=== PATIENT | male | born 1955 | race African-American/Black ===

== ENCOUNTER 2019-01-24 17:38 | Inpatient (IN) | payer MEDICAID ==
[~2019-01-24] VITALS: Ht 175.3 cm; Wt 90.0 kg
[2019-01-24 17:45] VITALS: BP 155/99
[2019-01-24] MEDS ORDERED: Nitroglycerin 2% oint pkt TOPIC ONE (17:45)
[2019-01-24] MEDS ORDERED: Nitroglycerin 50mg/250ml btl 250 ML IV ONE (17:45)
--- NOTE | 2019-01-24 17:45 | NUR ---
ED Nurse Note: Pt brought in by [facility] for c/o increasing sob and biltat LE swelling for the past two weeks. [facility] applied CPAP on scene, initial oxygen sat was 70% per fire. Pt was also given 4 sprays of nitro en route to the ED. Pt is aaox4, breathing is labored, pt is still able to speak in full sentences. ERMD at bedside, pt placed on court monitor and in hospital gown. RT at bedside.
[2019-01-24] MEDS: Nitroglycerin Subl 0.4mg tab SL PRN ×3 (17:47→18:37)
--- NOTE | 2019-01-24 17:56 | Emergency Room Report ---
History of Present Illness General Chief Complaint: Dyspnea/Respdistress Source: Patient, EMS Present Illness HPI Patient presents with dyspnea by EMS. He has a history of congestive heart failure. EMS found him with an oxygen saturation of 70%. CPAP was begun in the field. In addition he received 2 sprays of nitroglycerin. He was hypertensive with a systolic pressure 170 in the field. His O2 saturation improved to 98% and his breathing was improved although he was still tachypneic. The patient denies any fevers or productive cough. He complains about pedal edema bilaterally. He denies calf pain. The patient reports that this problem is developed over the last 8 months. He has been evaluated the [facility]. He was told he has a blockage in his heart. He is taking Lasix and 2 days ago was increased from 20 to 40 mg. He feels is not working very well. He is not told the etiology of the heart failure. He says that the echocardiogram done before revealed an ejection fraction of about 30%. He has had an implanted defibrillator placed. He has been hospitalized at [facility] in addition to the [facility]. He is depressed about his condition. He denies suicidal ideation. The patient has a distant history of cocaine abuse. He stopped all drugs and alcohol 20 years ago. He claims he does not smoke. No chills, sore throat, palpitations, nausea, vomiting, diarrhea, dysuria, abdominal pain, joint pain, rashes, visual changes, dizziness, headache. Allergies: Coded Allergies: IODINE (Verified Allergy, Unknown, 01/24/19) Patient History Past Medical History: see triage record Social History: Reports: drug use - Distant cocaine (see tox); Denies: smoking , alcohol use Social History Narrative From home Reviewed Nursing Documentation: PMH: Agreed; PSxH: Agreed Nursing Documentation-PM Past Medical History: No History, Except For Hx Cardiac Problems: Yes - CHF Hx Hypertension: Yes Review of Systems All Other Systems: negative except mentioned in HPI Physical Exam Vital Signs Date Time Temp Pulse Resp B/P (MAP) Pulse Ox O2 Delivery O2 Flow Rate FiO2 01/24/19 17:44 97.5 110 28 155/99 (117) 99 Bi-pap Sp02 EP Interpretation: reviewed, abnormal - Interpreted as low by me based on FiO2 and second rigger history. General Appearance: alert, GCS 15, non-toxic, moderate distress Head: normocephalic, atraumatic Eyes: bilateral eye normal inspection, bilateral eye PERRL, bilateral eye EOMI ENT: moist mucus membranes Neck: full range of motion, supple, no meningismus Respiratory: respiratory distress, rales Cardiovascular #1: JVD - Above angle of the jaw sitting upright, tachycardia, edema - 3+ pedal edema Cardiovascular #2: 2+ radial (R) Gastrointestinal: non tender, soft, distended - Minimally, decreased bowel sounds Genitourinary: no CVA tenderness Musculoskeletal: no calf tenderness, pelvis stable Neurologic: alert, oriented x3, grossly normal Psychiatric: anxious Skin: no rash, warm/dry Procedures Critical Care Time Critical Care Time Total Critical Care Time: 90 min bedside evaluation and treatment excludes procedures (EKG). Reason for critical care: respiratory distress, BiPAP, re-evaluations, hypertensive urgency Possible complications: hypotension, hypertension, TN, shock, arrhythmias, metabolic acidosis, end organ damage, respiratory failure. Interventions: BiPAP, repeat evaluations, nitrates, Lasix Course: Patient presents with respiratory distress on CPAP from the field. Hypertension and nitrates given in the field. BiPAP initiated and aggressive treatment with nitrates and Lasix. Patient not tolerating BiPAP well. Repeat evaluation and able to oxygenate on nasal cannula. Discussion with respiratory therapy. Patient diuresing. Blood pressure improved. Discussion with patient positive toxicology screen. Discussion with admitting physician. Consultations: nursing staff, EMS, RT, admitting physician Performed by: Dr. Krueger Tolerated well condition = critical Medical Decision Making Diagnostic Impression: Primary Impression: Pulmonary edema Qualified Codes: J81.0 - Acute pulmonary edema Additional Impressions: Hypertensive urgency Amphetamine abuse ER Course Patient presents with hypoxia, dyspnea with history of heart failure. Differential includes acute myocardial infarction, pulmonary embolism, flash pulmonary edema, hypertensive urgency amongst others. Patient has improved with CPAP in the field and nitroglycerin. BiPAP is ordered here along with nitrates and Lasix. Flash pulmonary edema and pulmonary embolus. Evaluation with EKG, chest x-ray and labs. Patient is placed on a cardiac monitor technician. At this time he is satting at 100% on BiPAP and fully awake. No blood gases indicated at this time. He does not need CO2 monitoring unless he becomes sleepy. EKG sinus tachycardia with nonspecific ST-T wave changes. Chest x-ray with pulmonary edema. Normal white count. Patient improved after sublingual nitroglycerin, Nitropaste and Lasix. Beginning to diurese. Not tolerating BiPAP and switched over to nasal cannula oxygenating at the 100%. Nitroglycerin drip has not been started yet. Re- evaluation at 18:31. Patient tolerating nasal cannula with adequate oxygenation. No respiratory distress at this time. Downgraded from ICU. Discussed + tox with patient. States had a sponsor in past but not recently. Did meth (ingest) Saturday. Admit SDU Dr. Olmedo. Echocardiogram indicated. Laboratory Tests Test 01/24/19 17:45 01/24/19 18:16 01/24/19 21:20 White Blood Count 6.9 K/UL (4.8-10.8) Red Blood Count 4.33 M/UL (4.70-6.10) L Hemoglobin 13.2 G/DL (14.2-18.0) L Hematocrit 38.6 % (42.0-52.0) L Mean Corpuscular Volume 89 FL (80-99) Mean Corpuscular Hemoglobin 30.4 PG (27.0-31.0) Mean Corpuscular Hemoglobin Concent 34.1 G/DL (32.0-36.0) Red Cell Distribution Width 12.7 % (11.6-14.8) Platelet Count 313 K/UL (150-450) Mean Platelet Volume 5.1 FL (6.5-10.1) L Neutrophils (%) (Auto) 55.5 % (45.0-75.0) Lymphocytes (%) (Auto) 30.2 % (20.0-45.0) Monocytes (%) (Auto) 10.0 % (1.0-10.0) Eosinophils (%) (Auto) 1.8 % (0.0-3.0) Basophils (%) (Auto) 2.4 % (0.0-2.0) H Prothrombin Time 11.4 SEC (9.30-11.50) Prothrombin Time INR 1.1 (0.9-1.1) PTT 24 SEC (23-33) Sodium Level 144 MMOL/L (136-145) Potassium Level 4.1 MMOL/L (3.5-5.1) Chloride Level 106 MMOL/L (98-107) Carbon Dioxide Level 31 MMOL/L (21-32) Anion Gap 7 mmol/L (5-15) Blood Urea Nitrogen 25 mg/dL (7-18) H Creatinine 1.2 MG/DL (0.55-1.30) Estimate Glomerular Filtration Rate > 60 mL/min (>60) Glucose Level 87 MG/DL (74-106) Calcium Level 9.1 MG/DL (8.5-10.1) Total Bilirubin 0.6 MG/DL (0.2-1.0) Aspartate Amino Transferase (AST) 32 U/L (15-37) Alanine Aminotransferase (ALT) 69 U/L (12-78) Alkaline Phosphatase 161 U/L (46-116) H Total Creatine Kinase 65 U/L (26-308) Troponin I 0.031 ng/mL (0.000-0.056) 0.038 ng/mL (0.000-0.056) Pro-B-Type Natriuretic Peptide 9362 pg/mL (0-125) H Total Protein 7.5 G/DL (6.4-8.2) Albumin 3.4 G/DL (3.4-5.0) Globulin 4.1 g/dL Albumin/Globulin Ratio 0.8 (1.0-2.7) L Urine Color Pale yellow Urine Appearance Clear Urine pH 6 (4.5-8.0) Urine Specific [place] 1.010 (1.005-1.035) Urine Protein 2+ (NEGATIVE) H Urine Glucose (UA) Negative (NEGATIVE) Urine Ketones Negative (NEGATIVE) Urine Blood 1+ (NEGATIVE) H Urine Nitrite Negative (NEGATIVE) Urine Bilirubin Negative (NEGATIVE) Urine Urobilinogen Normal MG/DL (0.0-1.0) Urine Leukocyte Esterase Negative (NEGATIVE) Urine RBC 0-2 /HPF (0 - 0) H Urine WBC 0 /HPF (0 - 0) Urine Squamous Epithelial Cells None /LPF (NONE/OCC) Urine Bacteria None /HPF (NONE) Urine Opiates Screen Negative (NEGATIVE) Urine Barbiturates Screen Negative (NEGATIVE) Phencyclidine (PCP) Screen Negative (NEGATIVE) Urine Amphetamines Screen Positive (NEGATIVE) H Urine Benzodiazepines Screen Negative (NEGATIVE) Urine Cocaine Screen Negative (NEGATIVE) Urine Marijuana (THC) Screen Positive (NEGATIVE) H EKG Diagnostic Results Rate: tachycardiac Rhythm: NSR ST Segments: no acute changes - Left atrial enlargement nonspecific ST-T wave changes with T wave inversions V5 V6 and also some 2 3 and aVF Rhythm Strip Diag. Results EP Interpretation: yes Rhythm: no PVC's, no ectopy, other Chest X-Ray Diagnostic Results Chest X-Ray Diagnostic Results : Chest X-Ray Ordered: Yes # of Views/Limited/Complete: 1 View Indication: Shortness of Breath EP Interpretation: Yes Interpretation: no effusion, no pneumothorax, other - pulm edema Impression: Other Electronically Signed by: Electronically signed by Dutch Krueger MD Last Vital Signs Date Time Temp Pulse Resp B/P (MAP) Pulse Ox O2 Delivery O2 Flow Rate FiO2 01/25/19 00:00 92 01/25/19 00:00 3.0 01/25/19 00:00 Nasal Cannula 01/25/19 00:00 97.7 18 126/84 (98) 95 01/24/19 20:10 50 Status: improved Disposition: ADMITTED INPATIENT Condition: Critical Dutch Krueger MD Jan 24, 2019 17:56
--- NOTE | 2019-01-24 18:05 | NUR ---
ED Nurse Note: Per BRAEDEN Krueger, hold nitro drip and Monitor pt blood pressure.
[2019-01-24 18:11] LABS: BASOPHILS % (AUTO) 2.4 % (0.0-2.0); EOSINOPHILS % (AUTO) 1.8 % (0.0-3.0); HEMATOCRIT 38.6 % (42.0-52.0); HEMOGLOBIN 13.2 G/DL (14.2-18.0); LYMPHOCYTES % (AUTO) 30.2 % (20.0-45.0); MEAN CORPUSCULAR VOLUME 89 FL (80-99); NEUTROPHILS % (AUTO) 55.5 % (45.0-75.0); PLATELET COUNT 313 K/UL (150-450); RED BLOOD COUNT 4.33 M/UL (4.70-6.10); RED CELL DISTRIBUTION WIDTH 12.7 % (11.6-14.8); WHITE BLOOD COUNT 6.9 K/UL (4.8-10.8)
--- NOTE | 2019-01-24 18:15 | NUR ---
ED Nurse Note: Pt stated he did not want to be on bipap at this time and requested nasal cannula. Per BRAEDEN Krueger, pt okay to start on 2L oxygen via nasal cannula and monitor. Pt placed on 2L oxygen via nc, oxygen sat is currently 100% and 25 respirations.
[2019-01-24 18:24] LABS: ANION GAP 7 mmol/L (5-15); BLOOD UREA NITROGEN 25 mg/dL (7-18); CALCIUM 9.1 MG/DL (8.5-10.1); CARBON DIOXIDE 31 MMOL/L (21-32); CHLORIDE 106 MMOL/L (98-107); CREATININE 1.2 MG/DL (0.55-1.30); POTASSIUM 4.1 MMOL/L (3.5-5.1); SODIUM 144 MMOL/L (136-145)
[2019-01-24 18:30] LABS: APPEARANCE,URINE CLEAR; BILIRUBIN, URINE NEGATIVE (NEGATIVE); COLOR,URINE PALE YELLOW; GLUCOSE, URINE (UA) NEGATIVE (NEGATIVE); KETONES,URINE NEGATIVE (NEGATIVE); LEUKOCYTE ESTERASE ,URINE NEGATIVE (NEGATIVE); NITRITE,URINE NEGATIVE (NEGATIVE); PH,URINE 6 (4.5-8.0); PROTEIN,URINE 2+ (NEGATIVE); UROBILINOGEN,URINE NORMAL MG/DL (0.0-1.0)
[2019-01-24 18:30] LABS: INR 1.1 (0.9-1.1)
[2019-01-24] MEDS ORDERED: FUROSEMIDE40 MG ORAL (18:35)
[2019-01-24] MEDS ORDERED: CARVEDILOL12.5 MG ORAL (18:35)
[2019-01-24] MEDS ORDERED: LISINOPRIL20 MG ORAL (18:35)
[2019-01-24 18:37] LABS: ALANINE AMINOTRANSFERASE 69 U/L (12-78); ALBUMIN 3.4 G/DL (3.4-5.0); ALBUMIN/GLOBULIN RATIO 0.8 (1.0-2.7); ALKALINE PHOSPHATASE 161 U/L (46-116); ASPARTATE AMINO TRANSFERASE 32 U/L (15-37); BILIRUBIN,TOTAL 0.6 MG/DL (0.2-1.0); CREATINE KINASE 65 U/L (26-308)
[2019-01-24 18:45] VITALS: BP 118/98
--- NOTE | 2019-01-24 19:05 | NUR ---
HAND-OFF: Report given to justen Russell and endorsed care.
--- NOTE | 2019-01-24 19:06 | NUR ---
ED Nurse Note: Received report from Chiqui HERNANDEZ.
[2019-01-24 19:30] VITALS: BP 105/91
--- NOTE | 2019-01-24 20:02 | NUR ---
ED Nurse Note: Report given to Samira Huddleston from SDU.
--- NOTE | 2019-01-24 20:03 | Diagnostic Imaging Report ---
EXAM: XR Chest, 1 View CLINICAL HISTORY: DYSPNEA TECHNIQUE: Frontal view of the chest. COMPARISON: No relevant prior studies available. FINDINGS: Lungs: Some increased hazy opacities are suspected at the lung bases suggestive of atelectasis versus infiltrate, right greater than left. Pleural space: No definite plain film evidence for pneumothorax. Heart: Prominence of the cardiac silhouette. Mediastinum: Unremarkable. Bones/joints: Probable old fracture deformity of the right clavicle. Lymph nodes: Calcified mediastinal nodes are suspected. IMPRESSION: 1. Some increased hazy opacities are suspected at the lung bases suggestive of atelectasis versus infiltrate, right greater than left. 2. Prominence of the cardiac silhouette.
[2019-01-24 20:10] VITALS: BP 111/89
--- NOTE | 2019-01-24 20:10 | NUR ---
TRANSFER TO FLOOR: Patient transferred to SDU unit. Report given to Samira HERNANDEZ. Pt alert and oriented, verbally responsive. No SOB. On O2 tx @2L/ min via nc, saturating 100%. Breathing even and unlabore. Afebrile. No skin issues. Med recon done. Belongings list done. VSS. All belongings given to the patient. Family member aware of transfer.
[2019-01-24 20:18] VITALS: BP 156/109
[2019-01-24] MEDS: Lisinopril 10mg tab ORAL SCH (21:35)
[2019-01-24] MEDS: Carvedilol 12.5mg tab ORAL SCH (21:35)
--- NOTE | 2019-01-24 22:00 | NUR ---
NURSE NOTES: Report received from DAVID Hu Per report patient is alert and oriented x4, ST on tele and 12 lead EKG. Pt currently has an O2 saturation of 100% on 3L NC and declining BiPap. Pt was presented to ED for treatment via ambulance after being found at home with an O2 sat of 70%. Pt received CPap and Nitro x4 en route. Pt continent and skin is intact per report. R AC 20g IV catheter reported to be asymptomatic, patent and intact. Drug screen revealed pt is positive for amphetamines and thc, reported allergies to iodine and pt given 40mg of Lasix IVP prior to transfer. Belongings list done and med recon done in ED per report. Will await patient.
--- NOTE | 2019-01-24 22:18 | NUR ---
NURSE NOTES: Patient received from DAVID Valdez Patient is alert and oriented x4, ST on tele (115). Pt currently has an O2 saturation of 94% on 3L NC and is SOB at rest and with exertion. Pt is ambulatory with a steady gait but encouraged to use call light for needs. Pt uses urinal and skin is intact. R AC 20g IV catheter is asymptomatic, patent and intact. Drug screen revealed pt is positive for amphetamines and THC, pt denies alcohol consumption. Pt has allergies to iodine and denies pain at this time. Belongings list updated to reflect upper and lower dentures. Will call for orders. Will continue to monitor.
--- NOTE | 2019-01-24 22:40 | NUR ---
NURSE NOTES: Patient provided with a bed bath and oral care and performed ADLs with minimal assistance. Patient requested meal, meal provided congruent with cardiac diet order.
--- NOTE | 2019-01-24 23:04 | NUR ---
NURSE NOTES: Pt provided with oral care, partial bed bath per patient request and linen change. Pt tolerated care well. Pt continues to rest in bed; bed is in the lowest position, safety wheels engaged, call light within reach, side rails up x3, and bed alarm activated. Will continue to monitor.
[2019-01-25] VITALS: BP 126/84
--- NOTE | 2019-01-25 03:29 | NUR ---
NURSE NOTES: Patient c/o nausea but denies chest pain at this time. Order obtained for Zofran, Zofran given. Will continue to monitor.
[2019-01-25 04:00] VITALS: BP 145/94
--- NOTE | 2019-01-25 05:33 | NUR ---
NURSE NOTES: Patient complains of abdominal pain 3/10, cramping in nature. Tylenol administered per order as requested by patient. Will continue to monitor. Will reassess.
--- NOTE | 2019-01-25 06:20 | NUR ---
NURSE NOTES: Left message for Dr Olmedo regarding nausea despite Zofran administration and pain has escalated to a 9/10 despite Tylenol administration when patient complained of mild pain. Will await call back. Will continue to monitor.
--- NOTE | 2019-01-25 07:08 | NUR ---
HAND-OFF: Report given to DAVID Rojo. Pt remains stable at this time. Endorsed return phone call from Dr Olmedo.
[2019-01-25 07:29] LABS: CHOLESTEROL 111 MG/DL (< 200); HDL CHOLESTEROL 28 MG/DL (40-60); TRIGLYCERIDES 134 MG/DL (30-150)
--- NOTE | 2019-01-25 07:30 | NUR ---
NURSE NOTES: Received report from DAVID Hogan. Patient is resting in bed, in stable condition. No s/sx SOB, breathing is even and unlabored, pt on 2LNC. Bed is in lowest position, brake engaged. Rodger light is kept within easy reach. Will continue to monitor patient.
[2019-01-25 08:00] VITALS: BP 131/101
[2019-01-25] MEDS: Carvedilol 12.5mg tab ORAL SCH ×2 (09:41→20:53)
[2019-01-25] MEDS: Lisinopril 10mg tab ORAL SCH ×2 (09:41→17:40)
[2019-01-25] MEDS: Aspirin Baby 81mg ORAL SCH (09:42)
[2019-01-25 12:00] VITALS: BP 129/93
--- NOTE | 2019-01-25 12:05 | History & Physical ---
History and Physical History & Physicial HP dictated # [id number] Quinten Olmedo MD Jan 25, 2019 12:05
[2019-01-25] MEDS ORDERED: traMADol 50mg tab ORAL PRN (13:00)
--- NOTE | 2019-01-25 13:10 | NUR ---
NURSE NOTES: Dr. Marcela Olmedo seen and examined patient at bedside. At nurse station informed MD of 2D Echocardiogram result of "Echogenic material noted in left ventricular apex. Possible thrombus," and ejection fraction of 10-15%. Dr. Marcela Olmedo acknowledged and ordered to begin heparin drip per pharmacy for thrombus, heparin IV bolus per pharmacy. Dr. Marcela Olmedo at bedside, explained to patient of 2D Echocardiogram findings and need for anticoagulation therapy. Patient verbalized understanding. Order entered, noted, and carried out. Also informed Dr. Marcela Olmedo, pt is c/o severe abdominal pain non-radiating. Dr. Marcela Olmedo acknowledged and ordered Tramadol 50 mg PO Q8HR PRN for severe pain 7-10 scale. Order entered, noted, and carried out. Will continue to monitor patient.
[2019-01-25] MEDS ORDERED: Heparin 5000 units/ml inj IV SCH ×3 (13:15→22:30)
[2019-01-25] MEDS ORDERED: Heparin 25,000u/D5W 500ml 500 ML IV SCH ×3 (14:00→15:40)
--- NOTE | 2019-01-25 14:32 | Cardiology Progress Note ---
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 cad as a cause needs to be evlauted for tx candidacy in future if corrective cause , however substance abuse hs may be a prohibitive issue Objective Last 24 Hour Vital Signs Date Time Temp Pulse Resp B/P (MAP) Pulse Ox O2 Delivery O2 Flow Rate FiO2 01/25/19 12:00 97.0 102 18 129/93 (105) 100 01/25/19 12:00 2.0 01/25/19 12:00 Nasal Cannula 3.0 01/25/19 09:41 131/101 01/25/19 09:41 106 131/101 01/25/19 08:00 91 01/25/19 08:00 Nasal Cannula 3.0 01/25/19 08:00 2.0 01/25/19 08:00 97.6 106 18 131/101 (111) 100 01/25/19 04:00 3.0 01/25/19 04:00 Nasal Cannula 3.0 01/25/19 04:00 98.0 103 22 145/94 (111) 98 01/25/19 03:42 97 01/25/19 00:00 92 01/25/19 00:00 3.0 01/25/19 00:00 Nasal Cannula 3.0 01/25/19 00:00 97.7 86 18 126/84 (98) 95 01/24/19 22:59 Nasal Cannula 4.0 01/24/19 21:35 157/109 01/24/19 21:35 112 157/109 01/24/19 20:18 98.4 115 26 156/109 (125) 89 01/24/19 20:10 97.8 95 23 111/89 100 Nasal Cannula 2.0 50 01/24/19 20:10 97.8 95 23 111/89 100 Nasal Cannula 2.0 50 01/24/19 19:30 98.2 99 22 105/91 100 Nasal Cannula 2.0 50 01/24/19 18:45 97.5 105 29 118/98 100 Nasal Cannula 2.0 01/24/19 18:37 118/98 01/24/19 18:32 143/111 01/24/19 18:00 114 32 100 Bi-Pap 50 01/24/19 17:54 114 32 100 Facial 50 01/24/19 17:47 155/55 01/24/19 17:46 155/59 01/24/19 17:45 110 28 Bi-pap 01/24/19 17:45 97.5 110 28 155/99 99 Bi-pap 01/24/19 17:44 97.5 110 28 155/99 (117) 99 Bi-pap Intake and Output 01/24/19 01/25/19 19:00 07:00 Intake Total 600 ml Output Total 800 ml Balance -200 ml Intake Oral 600 ml Output Urine Total 800 ml # Voids 1 3 Laboratory Tests Test 01/24/19 17:45 01/24/19 18:16 01/24/19 21:20 01/25/19 04:02 White Blood Count 6.9 K/UL (4.8-10.8) Red Blood Count 4.33 M/UL (4.70-6.10) L Hemoglobin 13.2 G/DL (14.2-18.0) L Hematocrit 38.6 % (42.0-52.0) L Mean Corpuscular Volume 89 FL (80-99) Mean Corpuscular Hemoglobin 30.4 PG (27.0-31.0) Mean Corpuscular Hemoglobin Concent 34.1 G/DL (32.0-36.0) Red Cell Distribution Width 12.7 % (11.6-14.8) Platelet Count 313 K/UL (150-450) Mean Platelet Volume 5.1 FL (6.5-10.1) L Neutrophils (%) (Auto) 55.5 % (45.0-75.0) Lymphocytes (%) (Auto) 30.2 % (20.0-45.0) Monocytes (%) (Auto) 10.0 % (1.0-10.0) Eosinophils (%) (Auto) 1.8 % (0.0-3.0) Basophils (%) (Auto) 2.4 % (0.0-2.0) H Prothrombin Time 11.4 SEC (9.30-11.50) Prothromb Time International Ratio 1.1 (0.9-1.1) Activated Partial Thromboplast Time 24 SEC (23-33) Sodium Level 144 MMOL/L (136-145) Potassium Level 4.1 MMOL/L (3.5-5.1) Chloride Level 106 MMOL/L (98-107) Carbon Dioxide Level 31 MMOL/L (21-32) Anion Gap 7 mmol/L (5-15) Blood Urea Nitrogen 25 mg/dL (7-18) H Creatinine 1.2 MG/DL (0.55-1.30) Estimat Glomerular Filtration Rate > 60 mL/min (>60) Glucose Level 87 MG/DL (74-106) Calcium Level 9.1 MG/DL (8.5-10.1) Total Bilirubin 0.6 MG/DL (0.2-1.0) Aspartate Amino Transf (AST/SGOT) 32 U/L (15-37) Alanine Aminotransferase (ALT/SGPT) 69 U/L (12-78) Alkaline Phosphatase 161 U/L (46-116) H Total Creatine Kinase 65 U/L (26-308) Troponin I 0.031 ng/mL (0.000-0.056) 0.038 ng/mL (0.000-0.056) 0.029 ng/mL (0.000-0.056) Pro-B-Type Natriuretic Peptide 9362 pg/mL (0-125) H Total Protein 7.5 G/DL (6.4-8.2) Albumin 3.4 G/DL (3.4-5.0) Globulin 4.1 g/dL Albumin/Globulin Ratio 0.8 (1.0-2.7) L Urine Color Pale yellow Urine Appearance Clear Urine pH 6 (4.5-8.0) Urine Specific [place] 1.010 (1.005-1.035) Urine Protein 2+ (NEGATIVE) H Urine Glucose (UA) Negative (NEGATIVE) Urine Ketones Negative (NEGATIVE) Urine Blood 1+ (NEGATIVE) H Urine Nitrite Negative (NEGATIVE) Urine Bilirubin Negative (NEGATIVE) Urine Urobilinogen Normal MG/DL (0.0-1.0) Urine Leukocyte Esterase Negative (NEGATIVE) Urine RBC 0-2 /HPF (0 - 0) H Urine WBC 0 /HPF (0 - 0) Urine Squamous Epithelial Cells None /LPF (NONE/OCC) Urine Bacteria None /HPF (NONE) Urine Opiates Screen Negative (NEGATIVE) Urine Barbiturates Screen Negative (NEGATIVE) Phencyclidine (PCP) Screen Negative (NEGATIVE) Urine Amphetamines Screen Positive (NEGATIVE) H Urine Benzodiazepines Screen Negative (NEGATIVE) Urine Cocaine Screen Negative (NEGATIVE) Urine Marijuana (THC) Screen Positive (NEGATIVE) H Hemoglobin A1c 5.1 % (4.3-6.0) Magnesium Level 1.8 MG/DL (1.8-2.4) Triglycerides Level 134 MG/DL (30-150) Cholesterol Level 111 MG/DL (< 200) LDL Cholesterol 66 mg/dL (<100) HDL Cholesterol 28 MG/DL (40-60) L Cholesterol/HDL Ratio 4.0 (3.3-4.4) Thyroid Stimulating Hormone (TSH) 2.184 uiU/mL (0.358-3.740) Test 01/25/19 13:30 Activated Partial Thromboplast Time Pending Cisco Yoder MD Jan 25, 2019 14:32
--- NOTE | 2019-01-25 15:45 | History and Physical Report ---
DATE OF ADMISSION: 01/24/2019 CHIEF COMPLAINT: Shortness of breath. HISTORY OF PRESENT ILLNESS: This is a 63-year-old male, who came to the emergency room with increasing shortness of breath. The patient was diagnosed with congestive heart failure in [place] about eight months ago. The patient was taking Lasix 20 mg daily. The patient was brought in by paramedics. Oxygen saturation wan 70%. The patient received CPAP on the field and also two sprays of nitroglycerin. He was hypertensive. The systolic blood pressure was 170s. He improved. His O2 saturation was 98% after treatment, but still tachypneic. The patient was brought into the emergency room. He was diagnosed with CHF exacerbation and was admitted. PAST MEDICAL HISTORY: The patient denies history of diabetes. He does have history of hypertension. MEDICATIONS: Reviewed in the EMR. SOCIAL HISTORY: The patient has history of drug use. Last drug use was six days ago. He takes methamphetamine by mouth. The patient has no history of smoking or alcohol abuse. ALLERGIES: No known drug allergies. REVIEW OF SYSTEMS: As above. PHYSICAL EXAMINATION: GENERAL: The patient is a 63-year-old male, in no acute distress. VITAL SIGNS: Blood pressure is 131/101, pulse 106, and temperature 97.6 degrees. HEENT: [place] conjunctivae. Anicteric sclerae. NECK: Supple. LUNGS: Bilateral rhonchi. HEART: S1 and S2 without murmurs or rubs. ABDOMEN: Soft and nontender. EXTREMITIES: Bilateral pedal edema. LABORATORY FINDINGS: The CBC shows WBC of 6,900, hematocrit is 38.6, hemoglobin is 13.2, and platelet is 313,000. The chemistry panel shows a sodium 144, potassium 4.1, chloride 106, BUN is 25, and creatinine 1.2. ProBNP is 9,362. Troponin was negative x3. Lipid panel shows LDL of 66, HDL of 28, triglycerides of 134, and TSH is 2.18. The UA shows 2+ protein. ASSESSMENT: This is a 63-year-old male, who was admitted with CHF exacerbation. He has significant peripheral edema. We just got his echo results back showing ejection fraction of only 10%. In addition, the patient has intracardiac thrombus. Apparently, he was on Coumadin before, but was for some reason stopped. PLAN: The patient will be diuresed with IV Lasix. Cardiology consultation will be obtained. The patient may need to be on inotropes. His blood pressure medication will be adjusted. We will maximize MEHRAN inhibitors as tolerated. The patient will be on anticoagulation. Laboratories will be followed and further recommendations will be given. Thank you very much. Quinten Olmedo M.D. DR: Hank JOB#: [id number] CC:
[2019-01-25 16:00] VITALS: BP 145/101
--- NOTE | 2019-01-25 16:38 | NUR ---
PT Note PT constanza completed, treatment initiated. Patient has SOB with minimal exertion. Patient needs PT to instruct on proper breathing techniques and energy conservation techniques to improve his functional mobility and gait with minimal SOB. Addendum: 01/25/19 at 1638 by LAURA ZAPATA PT Amended: Links added.
--- NOTE | 2019-01-25 19:30 | NUR ---
HAND-OFF: Report given to DAVID Low.
--- NOTE | 2019-01-25 19:35 | NUR ---
NURSE NOTES: Received report from Marcela Guo RN. Patient in bed AAO X4 with no complaints of acute pain or discomfort at this time. Kept clean, dry, and comfortable in bed. Patient on bedrest for possible PE. Placed on continuous cardiac monitoring per protocol. Safety precaution in place; siderails X2 up, call light within reach, bed in lowest position and free from clutter, brakes and alarm on at all times. Needs and wants anticipated and attended. Will continue plan of care. on Heparin drip per protocol
[2019-01-25 20:00] VITALS: BP 155/90
[2019-01-25] MEDS: Zolpidem 5mg tab ORAL PRN (20:53)
[2019-01-25] MEDS: Heparin 25,000u/D5W 500ml 500 ML IV SCH (22:45)
[2019-01-26] VITALS: BP 127/88
--- NOTE | 2019-01-26 00:30 | Consultation ---
DATE OF CONSULTATION: 01/25/2019 CARDIOLOGY CONSULTATION REFERRING PHYSICIAN: Quinten Olmedo M.D. REASON FOR REFERRAL: Shortness of breath. HISTORY OF PRESENT ILLNESS: This is a middle-aged gentleman who has a history of cardiomyopathy and congestive heart failure for at least approximately one year. He was previously hospitalized and cared for at the [place]. Medications ends up coming into different hospitals including [place] and [facility] a number of times according to himself because of recurrent shortness of breath. They discharged him and he goes back to the [place] and begins the same medication. He gets short of breath again, and he presented to the emergency room here. He states when he gets the intravenous dose of medication, his symptoms improved. He has dyspnea on exertion. He has not been able to for some time now. He has been sleeping in upright position because of shortness of breath. He does have palpitation. He has occasional dizziness. He has leg swelling. He does not have any chest pain. He does have a history of hypertension and he has a history of substance abusing including cocaine and most recently, crystal meth. The last time he used crystal meth was approximately two weeks ago. PAST MEDICAL HISTORY: Negative for diabetes. He is positive for high blood pressure. No history of high cholesterol. No heart attack, cancer, stroke, hepatitis, tuberculosis, asthma, emphysema, ulcers, kidney problems, liver problems, thyroid problems, anemia, HIV, AIDS, blood clots, or any other medical problems except for the congestive heart failure. He had been on anticoagulation with Coumadin for some time that was discontinued approximately two months ago, according to the patient. ALLERGIES: Allergic to iodine. SOCIAL HISTORY: He does not smoke, never did. He used to use alcohol and drugs as mentioned. Alcohol, he quit 15 years ago. Cocaine, he quit 15 years ago. Crystal meth, he has been using most recently about two months ago. REVIEW OF SYSTEMS: GASTROINTESTINAL: He has recurrent nausea and diarrhea, otherwise negative. GENITOURINARY: Negative. PULMONARY: Negative. CONSTITUTIONAL: Negative. NEUROLOGICAL: Negative. PHYSICAL EXAMINATION: GENERAL: Shows to be a tall gentleman, in no respiratory distress. NECK: Supple. No jugular venous distention. LUNGS: Few crackles noted at the bases. CARDIAC: Regular rate and rhythm. No heaves, thrills, gallops, or rubs are noted. ABDOMEN: Soft, nontender. Positive bowel sounds. EXTREMITIES: 1 to 2+ edema of the lower extremities. LABORATORY AND DIAGNOSTIC DATA: White count 6.9, hemoglobin 13.2, and platelet count 313,000. Chemistries, sodium 144, potassium 4.1, chloride 106, bicarb 31, BUN of 25, creatinine 1.2, and glucose of 87. Alkaline phosphatase 161. ProBNP of 9300. Albumin of 3.4. Total cholesterol 111, LDL of 66, and HDL of 28. TSH of 2.18. Three sets of cardiac enzymes are all negative. Magnesium 1.8. A1c of 5.7. His coags, INR 1.1 and PTT 22. Tox screen positive for amphetamines and positive for marijuana and his urinalysis is unremarkable. Chest x-ray was performed in the emergency room, which shows increased haziness or opacity suspected at the lung bases, suggestive of atelectasis versus infiltrate, right versus left. Prominence of the heart cardiac silhouette is noted. The patient's electrocardiogram shows sinus rhythm with some nonspecific T-waves, biphasic T-waves in V5 and T-wave inversions in the V6, lead I, and aVL. ASSESSMENT AND PLAN: 1. Congestive heart failure. 2. Substance abuse. 3. History of hypertension. Dr. Olmedo, this patient was seen in cardiac consultation. The patient probably needs more time and higher dose of diuretics he is getting at the [place]. He should have an echocardiogram done. Serial enzymes have been negative so far. EKG will be repeated. He has had congestive heart failure on the current basis on several occasions, he is just not getting adequate medications. His dose of MEHRAN inhibitor should be increased. His dose of his diuretic should be increased. Sodium fluid restriction was fully discussed with the patient. The patient requires followup through the [place] through his insurance company to see if he requires further therapy than what is available if no underlying coronary artery disease as a cause of cardiomyopathy. This was discussed with the patient. He will approach to [place] once he is treated here. Cisco Yoder M.D. DR: ALFA/reese JOB#: [id number] CC:
[2019-01-26 04:00] VITALS: BP 126/99
[2019-01-26 06:16] LABS: ANION GAP 9 mmol/L (5-15); BLOOD UREA NITROGEN 26 mg/dL (7-18); CALCIUM 8.7 MG/DL (8.5-10.1); CARBON DIOXIDE 27 MMOL/L (21-32); CHLORIDE 104 MMOL/L (98-107); CHOLESTEROL 109 MG/DL (< 200); CREATININE 1.2 MG/DL (0.55-1.30); HDL CHOLESTEROL 34 MG/DL (40-60); POTASSIUM 3.5 MMOL/L (3.5-5.1); SODIUM 140 MMOL/L (136-145); TRIGLYCERIDES 65 MG/DL (30-150)
--- NOTE | 2019-01-26 07:25 | NUR ---
NURSE NOTES: Received report from Cari Mclean RN. Patient sitting in chair, alert and oriented x 4, able to make needs known. Receiving O2 via nasal cannula @ 2L/min, respirations even and unlabored. Right AC 18g IV site infusing heparin at 18 units/kg/hr, asymptomatic. Bed locked in lowest position with side rails up x 3. All needs attended to. Call light within reach. Will continue to monitor. Addendum: 01/26/19 at 1056 by AGUSTIN MCCALL RN IV site is 20g
--- NOTE | 2019-01-26 07:37 | NUR ---
HAND-OFF: Report given to Michelle Mayo RN. Patient in stable condition, endorsed plan of care.
[2019-01-26 08:00] VITALS: BP 137/98
[2019-01-26] MEDS: Aspirin Baby 81mg ORAL SCH (09:01)
[2019-01-26] MEDS: Lisinopril 10mg tab ORAL SCH ×2 (09:01→18:15)
[2019-01-26] MEDS: Carvedilol 12.5mg tab ORAL SCH ×2 (09:01→20:25)
[2019-01-26 12:00] VITALS: BP 116/87
--- NOTE | 2019-01-26 13:34 | General Progress Note ---
Assessment/Plan Problem List: (1) Pulmonary edema ICD Codes: J81.1 - Chronic pulmonary edema SNOMED: 95105987 Qualifiers: Qualified Codes: J81.0 - Acute pulmonary edema (2) CHF (congestive heart failure) ICD Codes: I50.9 - Heart failure, unspecified SNOMED: 42420054 (3) Hypertensive urgency ICD Codes: I16.0 - Hypertensive urgency SNOMED: 241611344 (4) Amphetamine abuse ICD Codes: F15.10 - Other stimulant abuse, uncomplicated SNOMED: 93220593 (5) Hypomagnesemia ICD Codes: E83.42 - Hypomagnesemia SNOMED: 936995912 Assessment/Plan: cont with diuretics replete K and Mag follow labs PT Subjective Allergies: Coded Allergies: IODINE (Verified Allergy, Unknown, 01/24/19) Uncoded Allergies: Shell fish (Allergy, Severe, 01/25/19) Subjective In NAD Objective Last 24 Hour Vital Signs Date Time Temp Pulse Resp B/P (MAP) Pulse Ox O2 Delivery O2 Flow Rate FiO2 01/26/19 12:00 2.0 01/26/19 12:00 Nasal Cannula 2.0 01/26/19 09:01 137/98 01/26/19 09:01 97 137/98 01/26/19 08:00 99.0 97 20 137/98 (111) 97 01/26/19 08:00 Nasal Cannula 2.0 01/26/19 08:00 2.0 01/26/19 07:24 103 01/26/19 04:00 98.4 100 20 126/99 (108) 100 01/26/19 04:00 Nasal Cannula 3.0 01/26/19 04:00 2.0 01/26/19 04:00 97 01/26/19 00:00 96 01/26/19 00:00 98.4 96 21 127/88 (101) 99 01/26/19 00:00 Nasal Cannula 3.0 01/25/19 20:53 102 155/90 01/25/19 20:00 113 01/25/19 20:00 97.8 102 20 155/90 (111) 98 01/25/19 20:00 2.0 01/25/19 20:00 Nasal Cannula 3.0 01/25/19 17:40 145/101 01/25/19 16:00 97.8 97 18 145/101 (116) 100 01/25/19 16:00 98 01/25/19 16:00 2.0 01/25/19 16:00 Nasal Cannula 3.0 Intake and Output 01/25/19 01/26/19 19:00 07:00 Intake Total 788.872 ml 488.872 ml Output Total 1900 ml 800 ml Balance -1111.128 ml -311.128 ml Intake Oral 700 ml 400 ml IV Total 88.872 ml 88.872 ml Output Urine Total 1900 ml 800 ml # Voids 3 Laboratory Tests 01/25/19 21:15: Activated Partial Thromboplast Time 43H 01/26/19 04:50: Activated Partial Thromboplast Time 93H, Sodium Level 140, Potassium Level 3.5, Chloride Level 104, Carbon Dioxide Level 27, Anion Gap 9, Blood Urea Nitrogen 26H, Creatinine 1.2, Estimat Glomerular Filtration Rate > 60, Glucose Level 117H , Calcium Level 8.7, Magnesium Level 1.7L, Pro-B-Type Natriuretic Peptide 7066H , Triglycerides Level 65, Cholesterol Level 109, LDL Cholesterol 68, HDL Cholesterol 34L, Cholesterol/HDL Ratio 3.2L Height (Feet): 5 Height (Inches): 9.00 Weight (Pounds): 233 Cardiovascular: normal rate Respiratory/Chest: lungs clear Edema: 4+ Generalized Quinten Olmedo MD Jan 26, 2019 13:34
[2019-01-26] MEDS: Magnesium Oxide 400mg tab ORAL SCH ×2 (14:30→18:17)
[2019-01-26 16:00] VITALS: BP 141/90
--- NOTE | 2019-01-26 16:52 | NUR ---
CASE MANAGEMENT:REVIEW 63 YR OLD MALE BIBA FROM HOME CC; SOB. BLE SWELLING SI: PULMONARY EDEMA 97.5 110 28 155/99 99% ON BIPAP BIN+25 BNP+9362 URINE(+) AMPHETAMINES AND THC IS: CPAP APPLIED AT [facility] X4 EN ROUTE ASA PO NITRO 2" IV LASIX ;TO STEP DOWN UNIT DCP: FROM HOME
--- NOTE | 2019-01-26 19:10 | NUR ---
NURSE NOTES: Received report from DAVID Bernstein. Patient is currently resting in bed sleeping with no signs of acute pain or discomfort at this time. Pt is currently clean, dry, and comfortable in bed. No signs of cardiac distress noted and pt is SR on tele monitor. Pt is currently on RA with an O2 saturation of 100%. R AC 20g IV catheter noted with heparin currently infusing at 18u/kg/hr as ordered. Safety precaution in place; siderails X2 up, call light within reach, bed in lowest position and free from clutter, brakes and alarm on at all times. Will continue plan of care. Will continue to monitor.
--- NOTE | 2019-01-26 19:24 | NUR ---
HAND-OFF: Report given to Ricco Spaulding RN. Patient asleep in bed, heparin infusing at prescribed rate.
[2019-01-26 20:00] VITALS: BP 130/80
--- NOTE | 2019-01-26 20:56 | Cardiology Progress Note ---
Assessment/Plan Assessment/Plan 1. Congestive heart failure. 2. Substance abuse. 3. History of hypertension increase jayden keep on diuretic will consdier increae in coreg will need to add aldactone once acei maximized will wait for echo need to consider icd at some point Objective Last 24 Hour Vital Signs Date Time Temp Pulse Resp B/P (MAP) Pulse Ox O2 Delivery O2 Flow Rate FiO2 01/26/19 20:25 100 119/85 01/26/19 18:15 134/93 01/26/19 16:00 2.0 01/26/19 16:00 97.8 92 20 141/90 (107) 97 01/26/19 16:00 Nasal Cannula 2.0 01/26/19 15:07 85 01/26/19 12:33 91 01/26/19 12:00 2.0 01/26/19 12:00 97.5 91 20 116/87 (97) 98 01/26/19 12:00 Nasal Cannula 2.0 01/26/19 09:01 137/98 01/26/19 09:01 97 137/98 01/26/19 08:00 99.0 97 20 137/98 (111) 97 01/26/19 08:00 Nasal Cannula 2.0 01/26/19 08:00 2.0 01/26/19 07:24 103 01/26/19 04:00 98.4 100 20 126/99 (108) 100 01/26/19 04:00 Nasal Cannula 3.0 01/26/19 04:00 2.0 01/26/19 04:00 97 01/26/19 00:00 96 01/26/19 00:00 98.4 96 21 127/88 (101) 99 01/26/19 00:00 Nasal Cannula 3.0 Intake and Output 01/25/19 01/26/19 19:00 07:00 Intake Total 788.872 ml 526.960 ml Output Total 1900 ml 800 ml Balance -1111.128 ml -273.040 ml Intake Oral 700 ml 400 ml IV Total 88.872 ml 126.960 ml Output Urine Total 1900 ml 800 ml # Voids 3 Laboratory Tests Test 01/25/19 21:15 01/26/19 04:50 01/26/19 20:30 Activated Partial Thromboplast Time 43 SEC (23-33) H 93 SEC (23-33) H Sodium Level 140 MMOL/L (136-145) Potassium Level 3.5 MMOL/L (3.5-5.1) Chloride Level 104 MMOL/L (98-107) Carbon Dioxide Level 27 MMOL/L (21-32) Anion Gap 9 mmol/L (5-15) Blood Urea Nitrogen 26 mg/dL (7-18) H Creatinine 1.2 MG/DL (0.55-1.30) Estimat Glomerular Filtration Rate > 60 mL/min (>60) Glucose Level 117 MG/DL (74-106) H Calcium Level 8.7 MG/DL (8.5-10.1) Magnesium Level 1.7 MG/DL (1.8-2.4) L Pro-B-Type Natriuretic Peptide 7066 pg/mL (0-125) H Triglycerides Level 65 MG/DL (30-150) Cholesterol Level 109 MG/DL (< 200) LDL Cholesterol 68 mg/dL (<100) HDL Cholesterol 34 MG/DL (40-60) L Cholesterol/HDL Ratio 3.2 (3.3-4.4) L Troponin I Pending Cisco Yoder MD Jan 26, 2019 20:56
--- NOTE | 2019-01-26 21:00 | NUR ---
NURSE NOTES: Pt provided with a bed bath, linen change and oral care. Pt tolerated care well and performed care with minimal assistance. Pt continues resting in bed; bed is in lowest position, safety wheels engaged, call light within reach and bed alarm activated. Pt able to ambulate but encouraged to use call light. Will continue to monitor.
[2019-01-26] MEDS: Heparin 25,000u/D5W 500ml 500 ML IV SCH (21:46)
--- NOTE | 2019-01-26 21:46 | NUR ---
NURSE NOTES: Heparin bag replaced and infusing per order; Heparin was not discontinued, IV spreadsheet incorrect, please see notes on IV spreadsheet.
--- NOTE | 2019-01-26 21:49 | NUR ---
NURSE NOTES: Pt states that he is nauseous and request Zofran to administered. No emesis noted at this time. Zofran administered per request, no adverse reactions noted. Will continue to monitor.
[2019-01-27] VITALS: BP 130/90
--- NOTE | 2019-01-27 01:48 | NUR ---
NURSE NOTES: Pt states he has cramping abdominal pain rating a 7/10. Pt requested pain medication. Administered Tramadol as prescribed and educated patient as to side effects. Pt verbalizes understanding. No adverse effects noted at this time. Will continue to monitor patient, will re-evaluate.
[2019-01-27] MEDS: Zolpidem 5mg tab ORAL PRN (02:28)
--- NOTE | 2019-01-27 02:28 | NUR ---
NURSE NOTES: Insomnia noted and ambien administered as prescribed per patient request. Pt educated, no adverse effects noted at this time. Will continue to monitor patient.
[2019-01-27 04:00] VITALS: BP 120/82
[2019-01-27 05:15] LABS: ANION GAP 7 mmol/L (5-15); BLOOD UREA NITROGEN 26 mg/dL (7-18); CALCIUM 8.6 MG/DL (8.5-10.1); CARBON DIOXIDE 28 MMOL/L (21-32); CHLORIDE 103 MMOL/L (98-107); CREATININE 1.3 MG/DL (0.55-1.30); POTASSIUM 3.8 MMOL/L (3.5-5.1); SODIUM 138 MMOL/L (136-145)
--- NOTE | 2019-01-27 06:09 | NUR ---
NURSE NOTES: Pt's ptt came back low at 57; assessed patient for bleeding, none noted. Gave pt bolus and increased rate to 20u/kg/hr as prescribed. No adverse effects noted at this time. Will continue to monitor.
[2019-01-27] MEDS ORDERED: Heparin 25,000u/D5W 500ml 500 ML IV SCH ×4 (06:15→20:00)
[2019-01-27] MEDS ORDERED: Heparin 1000 units/ml 1ml Vial INJ ONE ×2 (06:30→13:15)
--- NOTE | 2019-01-27 07:00 | NUR ---
NURSE NOTES: received patient report from marita campuzano. patient is on bed awake. on hep drip at @ 42.32, verified with pharmacy that rate should be updated since weight was updated. pharmacy will send new labels for scanning. APTT next schedule @ 1209. no bleeding noted. will follow plan of care.
--- NOTE | 2019-01-27 07:02 | NUR ---
HAND-OFF: Report given to DAVID Magaña. Pt remains stable at this time.
[2019-01-27] MEDS: Heparin 25,000u/D5W 500ml 500 ML IV SCH ×2 (07:19→10:02)
[2019-01-27 08:00] VITALS: BP 121/53
[2019-01-27] MEDS: Aspirin Baby 81mg ORAL SCH (08:40)
[2019-01-27] MEDS: Magnesium Oxide 400mg tab ORAL SCH ×3 (08:40→17:32)
[2019-01-27] MEDS: Lisinopril 10mg tab ORAL SCH ×2 (08:40→17:32)
[2019-01-27] MEDS: Carvedilol 12.5mg tab ORAL SCH ×2 (08:40→20:13)
--- NOTE | 2019-01-27 09:22 | CDS Physician Query ---
Clarification is required for compliance, coding accuracy, and to reflect severity of illness for this patient Dear Dr. Olmedo Date: 01.27.19 CDS: Krissy Bryant "Heart Failure / CHF" documented in History and physical ejection fraction noted to be 10% Please Clarify: Acuity [ ] Acute [ ] Chronic [ x] Acute on Chronic Type [ x] Systolic [ ] Diastolic [ ] Systolic & Diastolic (Combined) [ ] Other: Present on Admission: [ ]x Yes [ ] No [ ] Clinically Undetermined Physician signature Date Please also document in your Progress Notes and/or Discharge Summary and indicate if the condition was present on admission. MONA
[2019-01-27] MEDS ORDERED: Miralax 17gm pkt ORAL PRN (09:45)
[2019-01-27 12:00] VITALS: BP 132/85
--- NOTE | 2019-01-27 12:02 | NUR ---
NURSE NOTES: patient is stable. no tin acute distress. on hep drip at prescribed rate. bag changed for hep drip done. negative bleeding so far. awaits APTT blood draw and result scheduled @ 1209. will continue to monitor.
[2019-01-27] MEDS ORDERED: Heparin 1000 units/ml 1ml Vial IV ONE (13:15)
[2019-01-27] MEDS ORDERED: Heparin 5000 units/ml inj IV ONE ×2 (13:30)
--- NOTE | 2019-01-27 14:37 | Cardiology Report ---
APPROVED REPORT EXAM: Two-dimensional and M-mode echocardiogram with Doppler and color Doppler. INDICATION Congestive Heart Failure M-Mode DIMENSIONS IVSd1.1 (0.7-1.1cm)Left Atrium (MM)4.0 (1.6-4.0cm) LVDd6.2 (3.5-5.6cm)Aortic Root3.3 (2.0-3.7cm) PWd0.9 (0.7-1.1cm)Aortic Cusp Exc.1.9 (1.5-2.0cm) IVSs1.5 cmEPSS2.2 (>1.0cm) LVDs5.4 (2.5-4.0cm) PWs1.4 cm <Conclusion> Echogenic material noted in left ventricular apex, c/w apical LV thrombus. Technically difficult study due to poor acoustic windows. Study quality precludes accurate assessment of regional wall motion. Severe global left ventricular hypokinesis. Mild left ventricular enlargement. Left ventricular ejection fraction estimated to be less than15 %. No evidence of left ventricular hypertrophy. No evidence of pericardial effusion. Mild bi-atrial enlargement. Right ventricular chamber size is at upper normal limits. Focal aortic valve sclerosis with adequate cusp excursion. Thickened mitral valve leaflets with normal excursion. Mild mtral annulus and aortic root calcification. Pulmonic valve not well visualized. Normal tricuspid valve structure. IVC dilated at 2.5 cm without physiological collapse, suggestive of increased RA pressure. Dr. Olmedo contacted 01/25/2019. A color flow and spectral Doppler study was performed and revealed: Mild to moderate aortic regurgitation. Severe mitral regurgitation. Mitral inflow indicates increased left atrial pressure, suggestive restrictive pattern (Grade III). Severe tricuspid regurgitation. Tricuspid systolic velocities suggests peak right ventricular systolic pressure of 72 mmHg, consistent with severe pulmonary hypertension. No pulmonic regurgitation present.
--- NOTE | 2019-01-27 14:52 | NUR ---
NURSE NOTES: rate adjusted for the hep drip per protocol. next aptt scheduled @1935 tonight. no bleeding noted. patient is alert and oriented. will continue to monitor.
--- NOTE | 2019-01-27 15:04 | General Progress Note ---
Assessment/Plan Problem List: (1) Pulmonary edema ICD Codes: J81.1 - Chronic pulmonary edema SNOMED: 05595059 Qualifiers: Qualified Codes: J81.0 - Acute pulmonary edema (2) CHF (congestive heart failure) ICD Codes: I50.9 - Heart failure, unspecified SNOMED: 72079893 (3) Hypertensive urgency ICD Codes: I16.0 - Hypertensive urgency SNOMED: 762695881 (4) Amphetamine abuse ICD Codes: F15.10 - Other stimulant abuse, uncomplicated SNOMED: 37294765 (5) Hypomagnesemia ICD Codes: E83.42 - Hypomagnesemia SNOMED: 398268567 Assessment/Plan: cont with diuretics follow labs PT Subjective Allergies: Coded Allergies: IODINE (Verified Allergy, Unknown, 01/24/19) Uncoded Allergies: Shell fish (Allergy, Severe, 01/25/19) Subjective feels better Objective Last 24 Hour Vital Signs Date Time Temp Pulse Resp B/P (MAP) Pulse Ox O2 Delivery O2 Flow Rate FiO2 01/27/19 12:00 97.5 84 21 132/85 (101) 98 01/27/19 12:00 Room Air Room Air 01/27/19 11:38 80 01/27/19 08:40 121/53 01/27/19 08:40 68 121/53 01/27/19 08:00 Room Air Room Air 01/27/19 08:00 97.6 68 20 121/53 (75) 100 01/27/19 08:00 82 01/27/19 04:00 Room Air Room Air 01/27/19 04:00 97.4 89 20 120/82 (95) 99 01/27/19 03:34 92 01/27/19 00:00 97.3 90 20 130/90 (103) 100 01/27/19 00:00 Room Air Room Air 01/26/19 23:27 88 01/26/19 20:25 100 119/85 01/26/19 20:00 Room Air Room Air 01/26/19 20:00 2.0 01/26/19 20:00 97.7 90 20 130/80 (97) 100 01/26/19 20:00 91 01/26/19 18:15 134/93 01/26/19 16:00 2.0 01/26/19 16:00 97.8 92 20 141/90 (107) 97 01/26/19 16:00 Nasal Cannula 2.0 01/26/19 15:07 85 Intake and Output 01/26/19 01/27/19 19:00 07:00 Intake Total 457.056 ml 748.6938 ml Output Total 1600 ml 1700 ml Balance -1142.944 ml -951.3062 ml Intake Oral 400 ml IV Total 457.056 ml 348.6938 ml Output Urine Total 1600 ml 1700 ml # Voids 5 Laboratory Tests 01/26/19 20:30: Troponin I 0.010 01/27/19 04:00: Activated Partial Thromboplast Time 57H, Sodium Level 138, Potassium Level 3.8, Chloride Level 103, Carbon Dioxide Level 28, Anion Gap 7, Blood Urea Nitrogen 26H, Creatinine 1.3, Estimat Glomerular Filtration Rate > 60, Glucose Level 123H , Hemoglobin A1c 5.1, Calcium Level 8.6, Magnesium Level 1.9 01/27/19 12:15: Activated Partial Thromboplast Time 64H Height (Feet): 5 Height (Inches): 9.00 Weight (Pounds): 234 Cardiovascular: normal rate Respiratory/Chest: lungs clear Edema: 3+ Generalized Quinten Olmedo MD Jan 27, 2019 15:04
[2019-01-27 16:00] VITALS: BP 130/90
[2019-01-27] MEDS ORDERED: NS 275ml ONE (16:18)
--- NOTE | 2019-01-27 16:20 | NUR ---
CASE MANAGEMENT:REVIEW 01/27/19 SI: PULMONARY EDEMA . CHF 97.5 84 21 132/85 98% ON RA BUN 26 BG 123 PTT 64 IS: HEPARIN GTT IV LASIX BID K-DUR PO QD COREG PO BID MAG-OX PO TID ZESTRIL PO BID ASA PO QD : TO STEP DOWN UNIT DCP: FROM HOME PLAN: CONT DIURETIC PT
--- NOTE | 2019-01-27 19:10 | NUR ---
HAND-OFF: Report given to jh campuzano.
--- NOTE | 2019-01-27 19:20 | NUR ---
NURSE NOTES: Report received from DAVID Magaña. Observed pt lying in the bed. No acute distress noted at this time. A/O x4. SR on lobby porter. Room air with no SOB. IV on R AC 20G, running heparin drip at 22U/kg/hr. Bed in the lowest position. Side rails up x2. Call light within reach. Will continue to monitor.
--- NOTE | 2019-01-27 19:58 | NUR ---
NURSE NOTES: Spoke with pharmacy and heparin drip dose adjusted. Will follow the plan of care.
[2019-01-27 20:00] VITALS: BP 120/83
[2019-01-27] MEDS ORDERED: Heparin 5000 units/ml inj IV SCH (20:00)
--- NOTE | 2019-01-27 20:38 | Cardiology Progress Note ---
Assessment/Plan Assessment/Plan 1. Congestive heart failure. 2. Substance abuse. 3. History of hypertension 4. Sever MR adn TR 5. Pulm htn increase jayden keep on diuretic will consdier increase in coreg will need to add aldactone once acei maximized may be by tomorrow will wait for echo need to consider icd at some point echo noted ef 15% still with sig peripheral edema he will need to be referred to transplant cardiology in future Subjective Cardiovascular: Denies: chest pain, lightheadedness, palpitations Respiratory: Reports: shortness of breath Gastrointestinal/Abdominal: Denies: abdominal pain Genitourinary: Denies: burning Objective Last 24 Hour Vital Signs Date Time Temp Pulse Resp B/P (MAP) Pulse Ox O2 Delivery O2 Flow Rate FiO2 01/27/19 20:13 94 120/83 01/27/19 20:00 97.6 94 20 120/83 (95) 100 01/27/19 17:32 130/90 01/27/19 16:00 96.8 103 20 130/90 (103) 100 01/27/19 16:00 Room Air Room Air 01/27/19 15:26 104 01/27/19 12:00 97.5 84 21 132/85 (101) 98 01/27/19 12:00 Room Air Room Air 01/27/19 11:38 80 01/27/19 08:40 121/53 01/27/19 08:40 68 121/53 01/27/19 08:00 Room Air Room Air 01/27/19 08:00 97.6 68 20 121/53 (75) 100 01/27/19 08:00 82 01/27/19 04:00 Room Air Room Air 01/27/19 04:00 97.4 89 20 120/82 (95) 99 01/27/19 03:34 92 01/27/19 00:00 97.3 90 20 130/90 (103) 100 01/27/19 00:00 Room Air Room Air 01/26/19 23:27 88 General Appearance: no apparent distress, alert Neck: supple Cardiovascular: normal rate Respiratory/Chest: lungs clear Abdomen: normal bowel sounds, non tender, soft Extremities: moderate edema Intake and Output 01/26/19 01/27/19 19:00 07:00 Intake Total 457.056 ml 748.6938 ml Output Total 1600 ml 1700 ml Balance -1142.944 ml -951.3062 ml Intake Oral 400 ml IV Total 457.056 ml 348.6938 ml Output Urine Total 1600 ml 1700 ml # Voids 5 Laboratory Tests Test 01/27/19 04:00 01/27/19 12:15 01/27/19 19:15 Activated Partial Thromboplast Time 57 SEC (23-33) H 64 SEC (23-33) H 43 SEC (23-33) H Sodium Level 138 MMOL/L (136-145) Potassium Level 3.8 MMOL/L (3.5-5.1) Chloride Level 103 MMOL/L (98-107) Carbon Dioxide Level 28 MMOL/L (21-32) Anion Gap 7 mmol/L (5-15) Blood Urea Nitrogen 26 mg/dL (7-18) H Creatinine 1.3 MG/DL (0.55-1.30) Estimat Glomerular Filtration Rate > 60 mL/min (>60) Glucose Level 123 MG/DL (74-106) H Hemoglobin A1c 5.1 % (4.3-6.0) Calcium Level 8.6 MG/DL (8.5-10.1) Magnesium Level 1.9 MG/DL (1.8-2.4) Microbiology Date/Time Source Procedure Growth Status 01/25/19 07:00 Nasal Nares MRSA Culture - Final NO METHICILLIN RESISTANT STAPH AUREUS... Complete 01/25/19 07:00 Rectum VRE Culture - Final NO VANCOMYCIN RESISTANT ENTEROCOCCUS ... Complete Cisco Yoder MD Jan 27, 2019 20:38
[2019-01-28] VITALS: BP 100/70
--- NOTE | 2019-01-28 03:00 | NUR ---
NURSE NOTES: Blood drawn for PTT and awaiting for the result. Pt sleeping in the bed, calm and comfortable. SR on surveillance system monitor. Will continue to monitor.
[2019-01-28 03:03] LABS: ANION GAP 7 mmol/L (5-15); BLOOD UREA NITROGEN 29 mg/dL (7-18); CALCIUM 8.6 MG/DL (8.5-10.1); CARBON DIOXIDE 29 MMOL/L (21-32); CHLORIDE 103 MMOL/L (98-107); CREATININE 1.5 MG/DL (0.55-1.30); POTASSIUM 4.1 MMOL/L (3.5-5.1); SODIUM 139 MMOL/L (136-145)
[2019-01-28 04:00] VITALS: BP 118/85
[2019-01-28] MEDS ORDERED: Heparin 25,000u/D5W 500ml 500 ML IV SCH (04:00)
[2019-01-28] MEDS: Heparin 25,000u/D5W 500ml 500 ML IV SCH ×2 (04:05→13:09)
--- NOTE | 2019-01-28 05:30 | NUR ---
NURSE NOTES: C/O nausea, Pt states, "It's always feel this away but I never throw up." Prn med given. Will continue to monitor.
--- NOTE | 2019-01-28 07:38 | NUR ---
HAND-OFF: Report given to DAVID Ingram.
--- NOTE | 2019-01-28 07:40 | NUR ---
NURSE NOTES: Report received ,pt awake alert oriented ,sitting up on side of bed eating breakfast,noted no resp distress denies any c/o pain or discomfort ,S-R on the monitor, skin warm and dry,IV site to LW intact with Heparin drip at 16u /kg/hr, call pete within reach at bedside,bed lock in lowest position,will continue with plans of care.
[2019-01-28 08:00] VITALS: BP_SYST 125; BP_SYST 138; BP_DIAS 76; BP_DIAS 87
--- NOTE | 2019-01-28 08:27 | General Progress Note ---
Assessment/Plan Problem List: (1) Pulmonary edema ICD Codes: J81.1 - Chronic pulmonary edema SNOMED: 78114142 Qualifiers: Qualified Codes: J81.0 - Acute pulmonary edema (2) CHF (congestive heart failure) ICD Codes: I50.9 - Heart failure, unspecified SNOMED: 38013185 (3) Hypertensive urgency ICD Codes: I16.0 - Hypertensive urgency SNOMED: 369404487 (4) Amphetamine abuse ICD Codes: F15.10 - Other stimulant abuse, uncomplicated SNOMED: 61085635 (5) Hypomagnesemia ICD Codes: E83.42 - Hypomagnesemia SNOMED: 811429127 Assessment/Plan: cont with diuretics follow labs PT need for continuing anticoagulation ? Subjective Allergies: Coded Allergies: IODINE (Verified Allergy, Unknown, 01/24/19) Uncoded Allergies: Shell fish (Allergy, Severe, 01/25/19) Subjective feels better Objective Last 24 Hour Vital Signs Date Time Temp Pulse Resp B/P (MAP) Pulse Ox O2 Delivery O2 Flow Rate FiO2 01/28/19 04:00 97.7 85 20 118/85 (96) 100 01/28/19 04:00 96 01/28/19 04:00 Room Air Room Air 01/28/19 00:00 Room Air Room Air 01/28/19 00:00 98.0 88 20 100/70 (80) 100 01/28/19 00:00 85 01/27/19 20:13 94 120/83 01/27/19 20:00 97.6 94 20 120/83 (95) 100 01/27/19 20:00 Room Air Room Air 01/27/19 20:00 98 01/27/19 17:32 130/90 01/27/19 16:00 96.8 103 20 130/90 (103) 100 01/27/19 16:00 Room Air Room Air 01/27/19 15:26 104 01/27/19 12:00 97.5 84 21 132/85 (101) 98 01/27/19 12:00 Room Air Room Air 01/27/19 11:38 80 01/27/19 08:40 121/53 01/27/19 08:40 68 121/53 Intake and Output 01/27/19 01/28/19 18:59 06:59 Intake Total 841.940 ml 785.028 ml Output Total 2200 ml 1500 ml Balance -1358.060 ml -714.972 ml Intake Oral 450 ml 200 ml IV Total 391.940 ml 585.028 ml Output Urine Total 2200 ml 1500 ml # Voids 5 4 # Bowel Movements 2 1 Laboratory Tests 01/27/19 12:15: Activated Partial Thromboplast Time 64H 01/27/19 19:15: Activated Partial Thromboplast Time 43H 01/28/19 02:20: Activated Partial Thromboplast Time 85H, Sodium Level 139, Potassium Level 4.1, Chloride Level 103, Carbon Dioxide Level 29, Anion Gap 7, Blood Urea Nitrogen 29H, Creatinine 1.5H, Estimat Glomerular Filtration Rate 57.7, Glucose Level 111H, Calcium Level 8.6, Magnesium Level 1.9 Height (Feet): 5 Height (Inches): 9.00 Weight (Pounds): 228 Cardiovascular: normal rate Respiratory/Chest: lungs clear Edema: 2+ Generalized Quinten Olmedo MD Jan 28, 2019 08:27
[2019-01-28] MEDS: Aspirin Baby 81mg ORAL SCH (09:05)
[2019-01-28] MEDS: Magnesium Oxide 400mg tab ORAL SCH ×3 (09:06→17:20)
[2019-01-28] MEDS: Carvedilol 12.5mg tab ORAL SCH ×2 (09:06→20:41)
[2019-01-28] MEDS: Lisinopril 10mg tab ORAL SCH ×2 (09:07→17:20)
--- NOTE | 2019-01-28 09:46 | NUR ---
CASE MANAGEMENT:REVIEW 01/28/19 SI: PULMONARY EDEMA. SEVERE MITRAL/TRICUSPID VALVE REGURG ECHO (+) POSSIBLE VENTRICULAR APEX CHF EF10-15% ......AMPHETAMINE USE 98.6 76 22 138/87 100% ON RA BUN+29 CR+1.5 APTT+85 IS: HEPARIN GTT LISINOPRIL PO BID K-DUR PO QD MAG OXIDE PO TID IV LASIX Q12 ASA PO QD COREG PO Q12 : STEP DOWN UNIT
--- NOTE | 2019-01-28 10:15 | NUR ---
HAND-OFF: Report given to Emiliano Chowdary RN. .
--- NOTE | 2019-01-28 10:16 | NUR ---
NURSE NOTES: RECEIVED PATIENT FROM Danae TOM RN. PATIENT IS LYING IN BED, AWAKE. ON ROOM AIR. NO SIGNS OF DISTRESS. HE USES URINALS. IV ON L W G18, ON HEPARIN DRIP AT 26 "U"/KG/HR FOLLOWING HOSPITAL PROTOCOL. CALL LIGHT WITHIN REACH. BED AT LOWEST POSITION. WILL CONTINUE TO MONITOR.
[2019-01-28 12:00] VITALS: BP 112/78
--- NOTE | 2019-01-28 13:26 | NUR ---
PT NOTE Attempted to see patient for PT treatment. Patient declining to participate with PT due to c/o nausea. Emiliano HERNANDEZ notified, will follow up tomorrow.
--- NOTE | 2019-01-28 14:25 | NUR ---
RD ASSESSMENT & RECOMMENDATIONS SEE CARE ACTIVITY FOR COMPLETE ASSESSMENT DAILY ESTIMATED NEEDS: Needs based on Cardiac, 89kg abw 25-30 kcals/kg 9473-2211 total kcals 1-1.5 g protein/kg 89-133 g total protein per MD (CHF dx, on lasix) mL/kg . total fluid mLs NUTRITION DIAGNOSIS: Decreased sodium intake needs R/T cardiac dx, fluid retention as evidenced by CHF dx w/ BNP 7066, BL leg w/ 3+ edema, on diuretics. CURRENT DIET:CARDIAC PO DIET RECOMMENDATIONS: LOW NA ADDITIONAL RECOMMENDATIONS: * Daily standing wt monitoring for accuracy : CHF dx, on lasix * Monitor lytes daily on lasix, replete as needed * Monitor renal fxn closely while on lasix (creat and BUN trend up)
[2019-01-28 16:00] VITALS: BP 139/91
--- NOTE | 2019-01-28 18:40 | NUR ---
NURSE NOTES: PATIENT STILL ON HEPARIN DRIP SAME RATE. FOR TIMED APPT IN AM. NO SIGNS OF DISTRESS OF THE MOMENT. C/O OF ABDL UPSET BUT REFUSED PAIN MEDS OF THIS TIME. WILL CONTINUE OT MONITOR. .
--- NOTE | 2019-01-28 19:29 | NUR ---
HAND-OFF: Report given to DAVID Duncan.
--- NOTE | 2019-01-28 19:42 | NUR ---
NURSE NOTES: Observed pt sleeping in the bed, arousable by voice. A/O x4. SR on groundwater monitoring technician. On room air with no SOB. No acute distress noted at this time. Bilateral lower extremities edema noted. IV on L W 18G, running Heparin drip at 26U/hr/hr. Bed in the lowest position. Side rails up x3. Call light within reach, educated pt to use call light. Will continue to monitor.
[2019-01-28 20:00] VITALS: BP 110/77
--- NOTE | 2019-01-28 20:35 | Cardiology Progress Note ---
Assessment/Plan Assessment/Plan 1. Congestive heart failure. 2. Substance abuse. 3. History of hypertension 4. Sever MR adn TR 5. Pulm htn increase jayden keep on diuretic will consdier increase in coreg will need to add aldactone ech noted need to consider icd at some point dc heparin still with sig peripheral edema he will need to be referred to transplant cardiology in future Subjective Cardiovascular: Denies: chest pain, lightheadedness, palpitations Respiratory: Reports: shortness of breath Gastrointestinal/Abdominal: Denies: abdominal pain Genitourinary: Denies: burning Objective Last 24 Hour Vital Signs Date Time Temp Pulse Resp B/P (MAP) Pulse Ox O2 Delivery O2 Flow Rate FiO2 01/28/19 17:20 139/91 01/28/19 16:00 94 01/28/19 16:00 Room Air 01/28/19 16:00 97.4 86 22 139/91 (107) 99 01/28/19 12:00 Room Air 01/28/19 12:00 97.3 83 21 112/78 (89) 98 01/28/19 11:42 90 01/28/19 09:07 138/87 01/28/19 09:06 76 138/87 01/28/19 09:00 Room Air Room Air 01/28/19 08:00 98.6 76 22 138/87 (104) 100 01/28/19 07:42 97 01/28/19 04:00 97.7 85 20 118/85 (96) 100 01/28/19 04:00 96 01/28/19 04:00 Room Air Room Air 01/28/19 00:00 Room Air Room Air 01/28/19 00:00 98.0 88 20 100/70 (80) 100 01/28/19 00:00 85 General Appearance: no apparent distress, alert Cardiovascular: normal rate Respiratory/Chest: lungs clear Abdomen: normal bowel sounds, non tender, soft Extremities: moderate edema Intake and Output 01/27/19 01/28/19 19:00 07:00 Intake Total 841.940 ml 840.304 ml Output Total 2200 ml 1500 ml Balance -1358.060 ml -659.696 ml Intake Oral 450 ml 200 ml IV Total 391.940 ml 640.304 ml Output Urine Total 2200 ml 1500 ml # Voids 5 4 # Bowel Movements 2 1 Laboratory Tests Test 01/28/19 02:20 Activated Partial Thromboplast Time 85 SEC (23-33) H Sodium Level 139 MMOL/L (136-145) Potassium Level 4.1 MMOL/L (3.5-5.1) Chloride Level 103 MMOL/L (98-107) Carbon Dioxide Level 29 MMOL/L (21-32) Anion Gap 7 mmol/L (5-15) Blood Urea Nitrogen 29 mg/dL (7-18) H Creatinine 1.5 MG/DL (0.55-1.30) H Estimat Glomerular Filtration Rate 57.7 mL/min (>60) Glucose Level 111 MG/DL (74-106) H Calcium Level 8.6 MG/DL (8.5-10.1) Magnesium Level 1.9 MG/DL (1.8-2.4) Cisco Yoder MD Jan 28, 2019 20:35
[2019-01-29] VITALS: BP 100/66
[2019-01-29] MEDS: Heparin 25,000u/D5W 500ml 500 ML IV SCH ×4 (00:20→11:53)
--- NOTE | 2019-01-29 01:00 | NUR ---
NURSE NOTES: Pt lying in the bed, calm and comfortable. No complain of nausea at this time. SR on sorter packer. Fall risk wrist band applied and teach pt to use call light when getting up. Bed in the lowest position. side rails up x2. Will continue to monitor.
[2019-01-29 04:00] VITALS: BP 123/80
--- NOTE | 2019-01-29 04:45 | NUR ---
NURSE NOTES: Was notified by pharmacy laboratory technician regarding system down. Awaiting for ptt result. Will continue to monitor.
[2019-01-29 05:50] LABS: ANION GAP 7 mmol/L (5-15); BLOOD UREA NITROGEN 24 mg/dL (7-18); CALCIUM 8.8 MG/DL (8.5-10.1); CARBON DIOXIDE 30 MMOL/L (21-32); CHLORIDE 102 MMOL/L (98-107); CREATININE 1.5 MG/DL (0.55-1.30); POTASSIUM 4.2 MMOL/L (3.5-5.1); SODIUM 139 MMOL/L (136-145)
--- NOTE | 2019-01-29 07:30 | NUR ---
HAND-OFF: Report given to DAVID Ingram.
--- NOTE | 2019-01-29 07:35 | NUR ---
NURSE NOTES: Report received from Mauricio Ordaz RN.Pt awake, alert oriented sitting up on bed ,noted no distress ,denies any c/o pain or discomfort SR on the monitor,instructed to keep on bedrest and use the urinal,skin warm and dry,IV site to Lt wrist intact with Heparin drip at 23u /kg/hr,call pete at bedside,SR up x2 HOB elevated bed lock in lowest position,will continue with plans of care.
[2019-01-29 08:00] VITALS: BP 121/91
[2019-01-29] MEDS ORDERED: Spironolactone 25mg tab ORAL SCH (09:00)
[2019-01-29] MEDS: Aspirin Baby 81mg ORAL SCH (09:05)
[2019-01-29] MEDS: Magnesium Oxide 400mg tab ORAL SCH ×3 (09:06→18:10)
[2019-01-29] MEDS: Lisinopril 10mg tab ORAL SCH ×2 (09:09→18:10)
[2019-01-29] MEDS: Carvedilol 12.5mg tab ORAL SCH ×2 (09:10→21:16)
[2019-01-29 12:00] VITALS: BP 127/85
--- NOTE | 2019-01-29 12:54 | NUR ---
NURSE NOTES: Pt stable no complaints presented,sleeping quietly in bed.
--- NOTE | 2019-01-29 13:37 | NUR ---
CASE MANAGEMENT:REVIEW 01/29/19 SI: PULMONARY EDEMA. SEVERE MITRAL/TRICUSPID VALVE REGURG ECHO (+) POSSIBLE VENTRICULAR APEX THROMBUS CHF EF10-15% ......AMPHETAMINE USE 997.6 85 19 127/85 99% ON RA IS: HEPARIN GTT LISINOPRIL PO BID K-DUR PO QD MAG OXIDE PO TID IV LASIX Q12 ASA PO QD COREG PO Q12 : STEP DOWN UNIT PLAN: WILL NEED ICD AT SOME POINT WILL NEED TO BE REFERRED TO TRANSPLANT CARDIOLOGY IN THE FUTURE
--- NOTE | 2019-01-29 13:56 | General Progress Note ---
Assessment/Plan Problem List: (1) Pulmonary edema ICD Codes: J81.1 - Chronic pulmonary edema SNOMED: 02792089 Qualifiers: Qualified Codes: J81.0 - Acute pulmonary edema (2) CHF (congestive heart failure) ICD Codes: I50.9 - Heart failure, unspecified SNOMED: 41897310 (3) Hypertensive urgency ICD Codes: I16.0 - Hypertensive urgency SNOMED: 690838459 (4) Amphetamine abuse ICD Codes: F15.10 - Other stimulant abuse, uncomplicated SNOMED: 10259112 (5) Hypomagnesemia ICD Codes: E83.42 - Hypomagnesemia SNOMED: 393912797 Assessment/Plan: Switch to Po lasix follow labs PT Discussed with dr Yoder Subjective Allergies: Coded Allergies: IODINE (Verified Allergy, Unknown, 01/24/19) Uncoded Allergies: Shell fish (Allergy, Severe, 01/25/19) Subjective feels better Objective Last 24 Hour Vital Signs Date Time Temp Pulse Resp B/P (MAP) Pulse Ox O2 Delivery O2 Flow Rate FiO2 01/29/19 12:01 Room Air 01/29/19 12:00 97.6 85 19 127/85 (99) 99 01/29/19 12:00 78 01/29/19 09:10 80 121/91 01/29/19 09:09 121/91 01/29/19 08:00 97.6 78 19 121/91 (101) 100 01/29/19 08:00 Room Air 01/29/19 08:00 90 01/29/19 04:00 77 01/29/19 04:00 97.9 77 20 123/80 (94) 100 01/29/19 04:00 Room Air 01/29/19 00:00 Room Air 01/29/19 00:00 97.7 78 20 100/66 (77) 98 01/29/19 00:00 84 01/28/19 20:41 71 110/77 01/28/19 20:00 Room Air 01/28/19 20:00 97.5 80 22 110/77 (88) 99 01/28/19 20:00 85 01/28/19 17:20 139/91 01/28/19 16:00 94 01/28/19 16:00 Room Air 01/28/19 16:00 97.4 86 22 139/91 (107) 99 Intake and Output 01/28/19 01/29/19 19:00 07:00 Intake Total 1049.484 ml 857.260 ml Output Total 2900 ml 1800 ml Balance -1850.516 ml -942.740 ml Intake Oral 500 ml 300 ml IV Total 549.484 ml 557.260 ml Output Urine Total 2900 ml 1800 ml # Voids 5 4 Laboratory Tests 01/29/19 04:10: Activated Partial Thromboplast Time 147H, Sodium Level 139, Potassium Level 4.2 , Chloride Level 102, Carbon Dioxide Level 30, Anion Gap 7, Blood Urea Nitrogen 24H, Creatinine 1.5H, Estimat Glomerular Filtration Rate 57.7, Glucose Level 111H, Calcium Level 8.8, Pro-B-Type Natriuretic Peptide 2457H Height (Feet): 5 Height (Inches): 9.00 Weight (Pounds): 222 Cardiovascular: normal rate Respiratory/Chest: lungs clear Edema: 2+ Generalized Quinten Olmedo MD Jan 29, 2019 13:56
[2019-01-29 16:00] VITALS: BP 126/74
[2019-01-29] MEDS: Furosemide 40mg tab ORAL SCH ×2 (16:04→21:16)
--- NOTE | 2019-01-29 19:00 | NUR ---
HAND-OFF: Report given to Nilsa Durbin RN.
--- NOTE | 2019-01-29 19:01 | NUR ---
NURSE NOTES: received pt from Nataly Medrano RN., pt is awake and resting on the bed, and pt took out the IV that was in Left AC 18G. urinal at the bed side. pt is in RA no SOB noted at this moment. no dysrythmia reported from previous shift. pt refusing to reinsert IV at this moment. explained risk and benefits of not putting IV and pt understood. will try to talk to pt again regarding putting back IV again. bed at the lowest position, locked, and alarmed. will continue to monitor pt with plan of care. call light within reach.
[2019-01-29 20:00] VITALS: BP 146/76
--- NOTE | 2019-01-29 22:59 | NUR ---
HAND-OFF: Report given to Nidia Durham RN. pt is in stable condition. Addendum: 01/30/19 at 0143 by ACOSTA CHIU RN wrong pt
--- NOTE | 2019-01-30 01:43 | NUR ---
HAND-OFF: Report given to Soraya HERNANDEZ. pt is in stable condition.
--- NOTE | 2019-01-30 01:53 | NUR ---
NURSE NOTES: Received patient from Edel Heredia RN. Patient transferred to tele unit via bed without incidence. Patient reports no pain, shortness of breath, or distress. Patient able to make needs known. Patient's belongings checked and signed with transferring RN, $10 (2 x $5) in wallet in patient's shoe remaining at bedside. Patient's cellphone and dentures also at bedside. Patient refusing IV access at this time, but agreed to allow RN to try later in morning. Patient on room air. Bed in lowest position, brakes on, side rails up x3, and call light within reach. Will continue with plan of care.
[2019-01-30] MEDS ORDERED: traMADol 50mg tab ORAL PRN (02:00)
[2019-01-30] MEDS ORDERED: Miralax 17gm pkt ORAL PRN (02:00)
[2019-01-30 04:00] VITALS: BP 117/78
[2019-01-30 06:30] LABS: ANION GAP 6 mmol/L (5-15); BLOOD UREA NITROGEN 22 mg/dL (7-18); CARBON DIOXIDE 28 MMOL/L (21-32); CHLORIDE 103 MMOL/L (98-107); CREATININE 1.4 MG/DL (0.55-1.30); POTASSIUM 4.3 MMOL/L (3.5-5.1); SODIUM 137 MMOL/L (136-145)
--- NOTE | 2019-01-30 07:15 | NUR ---
HAND-OFF: Report given to DAVID Green. Patient in stable condition and plan of care endorsed.
--- NOTE | 2019-01-30 07:39 | Cardiology Progress Note ---
Assessment/Plan Assessment/Plan 1. Congestive heart failure. 2. Substance abuse. 3. History of hypertension 4. Sever MR adn TR 5. Pulm htn increase jayden keep on diuretic will consider increase in coreg on Aldactone echo noted need to consider icd at some point still with sig peripheral edema he will need to be referred to transplant cardiology in future Subjective Cardiovascular: Denies: chest pain, lightheadedness Respiratory: Reports: shortness of breath - better Gastrointestinal/Abdominal: Denies: abdominal pain Genitourinary: Denies: burning Objective Last 24 Hour Vital Signs Date Time Temp Pulse Resp B/P (MAP) Pulse Ox O2 Delivery O2 Flow Rate FiO2 01/30/19 04:00 97.3 72 20 117/78 (91) 100 01/30/19 04:00 75 01/30/19 00:00 87 01/29/19 21:16 82 146/76 01/29/19 20:00 Room Air 01/29/19 20:00 99.0 82 18 146/76 (99) 99 01/29/19 19:32 88 01/29/19 18:10 126/74 01/29/19 16:00 81 01/29/19 16:00 97.9 72 18 126/74 (91) 99 01/29/19 16:00 Room Air 01/29/19 12:01 Room Air 01/29/19 12:00 97.6 85 19 127/85 (99) 99 01/29/19 12:00 78 01/29/19 09:10 80 121/91 01/29/19 09:09 121/91 01/29/19 08:00 97.6 78 19 121/91 (101) 100 01/29/19 08:00 Room Air 01/29/19 08:00 90 General Appearance: alert Neck: no JVD Respiratory/Chest: lungs clear Abdomen: normal bowel sounds, non tender, soft Extremities: non-tender, moderate edema Intake and Output 01/29/19 01/30/19 19:00 07:00 Intake Total 1480.082 ml Output Total 1110 ml Balance 370.082 ml Intake Oral 1040 ml IV Total 440.082 ml Output Urine Total 1110 ml # Voids 2 Laboratory Tests Test 01/29/19 13:35 01/30/19 05:30 Activated Partial Thromboplast Time 70 SEC (23-33) H Sodium Level 137 MMOL/L (136-145) Potassium Level 4.3 MMOL/L (3.5-5.1) Chloride Level 103 MMOL/L (98-107) Carbon Dioxide Level 28 MMOL/L (21-32) Anion Gap 6 mmol/L (5-15) Blood Urea Nitrogen 22 mg/dL (7-18) H Creatinine 1.4 MG/DL (0.55-1.30) H Estimat Glomerular Filtration Rate > 60 mL/min (>60) Glucose Level 99 MG/DL (74-106) Calcium Level 9.0 MG/DL (8.5-10.1) Cisco Yoder MD Jan 30, 2019 07:39
[2019-01-30 08:16] VITALS: BP 116/78
[2019-01-30] MEDS: Spironolactone 25mg tab ORAL SCH (09:36)
[2019-01-30] MEDS: Aspirin Baby 81mg ORAL SCH (09:37)
[2019-01-30] MEDS: Magnesium Oxide 400mg tab ORAL SCH ×3 (09:37→15:51)
[2019-01-30] MEDS: Furosemide 40mg tab ORAL SCH ×2 (09:37→21:17)
[2019-01-30] MEDS: Carvedilol 12.5mg tab ORAL SCH ×2 (09:38→21:17)
[2019-01-30] MEDS: Lisinopril 10mg tab ORAL SCH ×2 (09:38→15:51)
[2019-01-30 11:20] VITALS: BP 103/75
--- NOTE | 2019-01-30 12:40 | NUR ---
CASE MANAGEMENT:REVIEW 01/30/19 SI: PULMONARY EDEMA. SEVERE MITRAL/TRICUSPID VALVE REGURG ECHO (+) POSSIBLE VENTRICULAR APEX THROMBUS CHF EF10-15% ......AMPHETAMINE USE 96.3 80 20 103/75 100% ON RA PTT+70 IS: LISINOPRIL PO BID K-DUR PO QD MAG OXIDE PO TID LASIX PO Q12 ALDACTONE PO QD ASA PO QD COREG PO Q12 : NOW ON TELEMETRY PLAN: INCREASE MEHRAN AND BETA MARINA. CONTINUE BOTH DIURETICS WILL NEED ICD AT SOME POINT WILL NEED TO BE REFERRED TO TRANSPLANT CARDIOLOGY IN THE FUTURE
--- NOTE | 2019-01-30 15:21 | General Progress Note ---
Assessment/Plan Problem List: (1) Pulmonary edema ICD Codes: J81.1 - Chronic pulmonary edema SNOMED: 63917637 Qualifiers: Qualified Codes: J81.0 - Acute pulmonary edema (2) CHF (congestive heart failure) ICD Codes: I50.9 - Heart failure, unspecified SNOMED: 49089730 (3) Hypertensive urgency ICD Codes: I16.0 - Hypertensive urgency SNOMED: 522813907 (4) Amphetamine abuse ICD Codes: F15.10 - Other stimulant abuse, uncomplicated SNOMED: 48592064 (5) Hypomagnesemia ICD Codes: E83.42 - Hypomagnesemia SNOMED: 262296901 Assessment/Plan: Po lasix follow labs PT Discussed with dr Paresh Dempsey tomorrow Subjective Allergies: Coded Allergies: IODINE (Verified Allergy, Unknown, 01/24/19) Uncoded Allergies: Shell fish (Allergy, Severe, 01/25/19) Subjective feels better Objective Last 24 Hour Vital Signs Date Time Temp Pulse Resp B/P (MAP) Pulse Ox O2 Delivery O2 Flow Rate FiO2 01/30/19 12:00 88 01/30/19 11:20 96.3 80 20 103/75 (84) 100 01/30/19 09:38 116/78 01/30/19 09:38 78 116/78 01/30/19 09:00 Room Air 01/30/19 08:16 97.0 78 20 116/78 (91) 100 01/30/19 08:00 76 01/30/19 04:00 97.3 72 20 117/78 (91) 100 01/30/19 04:00 75 01/30/19 00:00 87 01/29/19 21:16 82 146/76 01/29/19 20:00 Room Air 01/29/19 20:00 99.0 82 18 146/76 (99) 99 01/29/19 19:32 88 01/29/19 18:10 126/74 01/29/19 16:00 81 01/29/19 16:00 97.9 72 18 126/74 (91) 99 01/29/19 16:00 Room Air Intake and Output 01/29/19 01/30/19 19:00 07:00 Intake Total 1480.082 ml Output Total 1110 ml Balance 370.082 ml Intake Oral 1040 ml IV Total 440.082 ml Output Urine Total 1110 ml # Voids 2 Laboratory Tests 01/30/19 05:30: Sodium Level 137, Potassium Level 4.3, Chloride Level 103, Carbon Dioxide Level 28, Anion Gap 6, Blood Urea Nitrogen 22H, Creatinine 1.4H, Estimat Glomerular Filtration Rate > 60, Glucose Level 99, Calcium Level 9.0 Height (Feet): 5 Height (Inches): 9.00 Weight (Pounds): 226 Cardiovascular: normal rate Respiratory/Chest: lungs clear Edema: 1+ Generalized Quinten Olmedo MD Jan 30, 2019 15:21
[2019-01-30 15:47] VITALS: BP 111/76
--- NOTE | 2019-01-30 19:07 | NUR ---
HAND-OFF: Report given to SBAR/report paper given to charge nurse.
[2019-01-30 20:00] VITALS: BP 108/73
--- NOTE | 2019-01-30 20:10 | NUR ---
NURSE NOTES: Written report received from medication reconciliation technician. Patient in bed resting, Alert and oriented x4, able to make needs known. No complaints of pain or distress noted at this time. Will continue to monitor.
[2019-01-30] MEDS ORDERED: Zolpidem 5mg tab ORAL PRN (20:30)
[2019-01-31] VITALS: BP 100/64
[2019-01-31 04:00] VITALS: BP_SYST 106; BP_SYST 137; BP_DIAS 76; BP_DIAS 95
--- NOTE | 2019-01-31 07:30 | NUR ---
NURSE NOTES: Received report from Tala/RN, Patient is awake and alert, eating breakfast on bed. On room air, with no acute distress/SOB noted. A/O x4. Able to make needs known, Denies pain at this time. IV on Right Hand patent, no bleeding or infiltration noted. Bed in low position and locked, Call light within reach. Encouraged to use call light when needed. Bed alarm engaged, side-rails up x2. Will continue plan of care.
--- NOTE | 2019-01-31 07:47 | NUR ---
HAND-OFF: Report given to Prachi RN. Patient in bed resting. Stable at Hand off.
[2019-01-31 08:00] VITALS: BP 125/92
[2019-01-31] MEDS: Aspirin Baby 81mg ORAL SCH (08:39)
[2019-01-31] MEDS: Spironolactone 25mg tab ORAL SCH (08:39)
[2019-01-31] MEDS: Magnesium Oxide 400mg tab ORAL SCH ×2 (08:40→13:22)
[2019-01-31] MEDS: Carvedilol 12.5mg tab ORAL SCH (08:40)
[2019-01-31] MEDS: Furosemide 40mg tab ORAL SCH (08:40)
[2019-01-31] MEDS: Lisinopril 10mg tab ORAL SCH (08:40)
[2019-01-31 12:00] VITALS: BP 124/89
[2019-01-31] MEDS ORDERED: NS 275ml ONE (14:21)
[2019-01-31] MEDS ORDERED: ZESTRIL10 M1 ORAL (14:35)
[2019-01-31] MEDS ORDERED: ASPIRIN81 MG ORAL (14:35)
[2019-01-31] MEDS ORDERED: FUROSEMIDE40 MG ORAL (14:35)
[2019-01-31] MEDS ORDERED: COREG12.5 MG ORAL (14:35)
--- NOTE | 2019-01-31 14:40 | General Progress Note ---
Assessment/Plan Problem List: (1) Pulmonary edema ICD Codes: J81.1 - Chronic pulmonary edema SNOMED: 64122958 Qualifiers: Qualified Codes: J81.0 - Acute pulmonary edema (2) CHF (congestive heart failure) ICD Codes: I50.9 - Heart failure, unspecified SNOMED: 04518009 (3) Hypertensive urgency ICD Codes: I16.0 - Hypertensive urgency SNOMED: 866247005 (4) Amphetamine abuse ICD Codes: F15.10 - Other stimulant abuse, uncomplicated SNOMED: 89707587 (5) Hypomagnesemia ICD Codes: E83.42 - Hypomagnesemia SNOMED: 777154805 Assessment/Plan: same meds Dc today Subjective Allergies: Coded Allergies: IODINE (Verified Allergy, Unknown, 01/24/19) Uncoded Allergies: Shell fish (Allergy, Severe, 01/25/19) Subjective feels better Objective Last 24 Hour Vital Signs Date Time Temp Pulse Resp B/P (MAP) Pulse Ox O2 Delivery O2 Flow Rate FiO2 01/31/19 12:00 98.1 71 18 124/89 (101) 100 01/31/19 09:00 Room Air 01/31/19 08:40 125/92 01/31/19 08:40 78 125/92 01/31/19 08:00 98.6 78 19 125/92 (103) 100 01/31/19 08:00 77 01/31/19 04:00 77 01/31/19 04:00 98.5 84 16 106/76 (86) 99 01/31/19 00:00 79 01/31/19 00:00 98.4 80 16 100/64 (76) 100 01/30/19 21:17 87 108/73 01/30/19 21:00 Room Air 01/30/19 20:00 98.6 87 18 108/73 (85) 100 01/30/19 20:00 79 01/30/19 16:00 70 01/30/19 15:51 111/76 01/30/19 15:47 98.1 78 20 111/76 (88) 99 Intake and Output 01/30/19 01/31/19 19:00 07:00 Intake Total 730 ml 140 ml Output Total 1500 ml Balance -770 ml 140 ml Intake Oral 730 ml 140 ml Output Urine Total 1500 ml # Voids 5 Height (Feet): 5 Height (Inches): 9.00 Weight (Pounds): 198 Cardiovascular: normal rate Respiratory/Chest: lungs clear Edema: 1+ Generalized Quinten Olmedo MD Jan 31, 2019 14:40
--- NOTE | 2019-01-31 16:10 | NUR ---
NURSE NOTES: Discharge instruction given, Patient verbalized understanding. Patient stated feeling better. monitoring and evaluation advisor and IV removed, No distress or bleeding noted. Patient is in stable condition. Belonging check done, Patient lost pants. Prescription given to patient. Escorted downstairs, Voucher given to hydraulic lift driver. Patient left via taxi.
--- NOTE | 2019-02-02 09:23 | Cardiology Report ---
APPROVED REPORT EKG Measurement Heart [id number] <Conclusion> Normal sinus rhythm Nonspecific T wave abnormality Prolonged QT Abnormal ECG
--- NOTE | 2019-02-03 08:32 | Discharge Summary ---
Discharge Summary Discharge Summary _ DATE OF ADMISSION: 01/24/2019 DATE OF DISCHARGE: 01/31/2019 DISCHARGED BY: Dr. Olmedo REASON FOR ADMISSION: 63 years old male with past medical history of congestive heart failure , was found by paramedics hypoxic with oxygen saturation 70% and tachypneic. Patient started on the CPAP in the field. Blood pressure was over 170s systolic, in the field. Patient received 2 sprays of nitroglycerin. Pulse oximetry improved with CPAP. Patient reported that symptoms slowly developed over the last 8 months. Patient was evaluated by [facility]. Patient was told that he had a blockage in his heart. Patient was on Lasix, and the dose was recently increased. He reported that echocardiogram was done previously ,showing ejection fraction of 30%. Upon evaluation in emergency department patient was tachypneic, pulse oximetry was 99% on the BiPAP. Blood pressure improved to 155/99. Laboratory work-up revealed no leukocytosis, stable hemoglobin and hematocrit. BUN 25 creatinine 1.2. Stable electrolytes. Stable LFT. Troponin 0.031, pro BNP 9362. Albumin 3.4. Urinalysis revealed +2 protein. No evidence of urinary tract infection. Urine toxicology screen was positive for amphetamines. ECG showed sinus rhythm with some nonspecific T-waves, biphasic T-waves in V5 and T-wave inversions in the V6, lead I, and aVL. CXR revealed some increased hazy opacities at the lung bases , suggestive of atelectasis versus infiltrate, right greater than left. Prominence of the cardiac silhouette. Patient received sublingual nitroglycerin, Nitropaste and Lasix . Patient started to diurese. Patient did not tolerate BiPAP and was switched to oxygen via nasal cannula . Patient subsequently admitted to direct observational unit for further management. CONSULTANTS: bulb inspector Dr. Yoder [facility] COURSE: Patient admitted to monitored floor and started on diuresis. Echocardiogram revealed ejection fraction less than 15% with severe global left ventricular hypokinesis. Mild to moderate aortic regurgitation. Severe mitral regurgitation. Mitral inflow indicated a left atrial pressure restrictive pattern grade 3. Right ventricular systolic pressure of 72 consistent with severe pulmonary hypertension. Echogenic material noted in left ventricular apex, c/w apical LV thrombus. Hospital Aide closely followed. Serial troponin were negative. The patient was ruled out for acute myocardial infarction. Patient was on anticoagulation with Coumadin for some time , which was discontinued about approximately 2 months ago , according to the patient. Per bulb inspector anti-failure regimen was optimized. Patient was on sodium and fluid restriction. Aggressive diuresis continued. Volumes were closely monitored. pro BNP from 9362 down to 2457. Medical management of congestive heart failure continued with beta-parvez, MEHRAN inhibitor , Lasix and Aldactone. Blood pressure was managed with beta-parvez , MEHRAN inhibitor and diuretic . Blood pressure stabilized. Patient initially started on full anticoagulation with heparin drip. Follow up with outpatient bulb inspector and continued anticoagulation with Coumadin as outpatient. Antiplatelet therapy with aspirin continued. Bronchodilator treatment provided as needed. Patient was able to be weaned from supplemental oxygen, and prior to discharge pulse oxymetry was stable on room air. Patient was counseled on abstinence from illicit street drugs. Renal parameters and electrolytes were closely monitored. Magnesium was replaced. Per bulb inspector patient will require further work-up; follow-up with [place] facilities regarding s further medical management. Hospital Aide recommended referral to transplant cardiology in future. Patient clinically stabilized and was ready for discharge. FINAL DIAGNOSES: Acute on chronic systolic congestive heart failure Pulmonary edema Hypertensive urgency -resolved Severe mitral regurgitation and tricuspid regurgitation Apical LV thrombus Pulmonary hypertension Amphetamine abuse Hypomagnesemia DISCHARGE MEDICATIONS: See Medication Reconciliation list. DISCHARGE INSTRUCTIONS: Patient was discharged home. Patient to follow-up with primary care provider in 1 week. I have been assigned to dictate discharge summary for this account. I was not involved in the patient's management. Adalgisa Jon NP Feb 03, 2019 08:32
--- NOTE | 2019-02-03 12:27 | Cardiology Report ---
APPROVED REPORT EKG Measurement Heart [id number] <Conclusion> Sinus tachycardia Possible Left atrial enlargement Nonspecific T wave abnormality Abnormal ECG
== END 2019-01-31 16:10 | disposition home or self-care (01) | DRG 194 ==
LOC: EDBD 17:38 → EMR 18:00 → 2W 18:30 → EDBEDREQSVC 18:45 → EDBEDREQ 18:45 → 2W 01-27 14:26 → 2E 01-30 01:34
DX: I11.0 Hypertensive heart disease with heart failure (principal); I16.0 Hypertensive urgency; I50.23 Acute on chronic systolic (congestive) heart failure; I27.20 Pulmonary hypertension, unspecified; E83.42 Hypomagnesemia; Z88.8 Allergy status to other drugs, medicaments and biological substances; I34.0 Nonrheumatic mitral (valve) insufficiency; F15.10 Other stimulant abuse, uncomplicated; R60.9 Edema, unspecified; I36.1 Nonrheumatic tricuspid (valve) insufficiency; Z95.810 Presence of automatic (implantable) cardiac defibrillator
CPT/HCPCS: 36415; 71045; 80048; 80053; 80061; 80307; 81003; 82550; 83036; 83735; 83880; 84443; 84484; 85025; 85610; 85730; 87081; 93005; 93306; 94660; 94664; 96374; 99291; 99292; J2405; J8499

== ENCOUNTER 2019-03-24 20:03 | Inpatient (IN) | payer MEDICAID ==
[~2019-03-24] VITALS: Ht 185.4 cm; Wt 99.4 kg
[~2019-03-24 20:03] MED LIST: ASPIRIN81 MG ORAL; CARVEDILOL12.5 MG ORAL; COREG12.5 MG ORAL; COUMADIN7.5 MG ORAL; FUROSEMIDE40 MG ORAL; LISINOPRIL20 MG ORAL; LOVENOX10 M3 SUBQ; ZESTRIL10 M1 ORAL
[2019-03-24 20:09] VITALS: BP 132/106
--- NOTE | 2019-03-24 20:09 | NUR ---
ED Nurse Note: Patient brought in by ambulance from home RA34 d/t SOB and abdominal pain. Patient aao x 4 and ambulatory. Patient stated he recently got diagnosed with CHF and is taking Lasix at home with hx of hypertension. Patient placed in gown and youth nutritional monitor. No acute distress noted at this time.
--- NOTE | 2019-03-24 20:23 | NUR ---
ED Nurse Note: Blood drawn, sent to lab.
--- NOTE | 2019-03-24 20:59 | NUR ---
ED Nurse Note: Xray at bedside
[2019-03-24 21:06] LABS: BASOPHILS % (AUTO) 2.4 % (0.0-2.0); EOSINOPHILS % (AUTO) 1.6 % (0.0-3.0); HEMATOCRIT 40.9 % (42.0-52.0); HEMOGLOBIN 12.4 G/DL (14.2-18.0); LYMPHOCYTES % (AUTO) 23.5 % (20.0-45.0); MEAN CORPUSCULAR VOLUME 96 FL (80-99); MONOCYTES % (AUTO) 8.9 % (1.0-10.0); NEUTROPHILS % (AUTO) 63.6 % (45.0-75.0); PLATELET COUNT 266 K/UL (150-450); RED BLOOD COUNT 4.26 M/UL (4.70-6.10); RED CELL DISTRIBUTION WIDTH 17.3 % (11.6-14.8); WHITE BLOOD COUNT 6.8 K/UL (4.8-10.8)
[2019-03-24 21:17] LABS: ANION GAP 12 mmol/L (5-15); BLOOD UREA NITROGEN 24 mg/dL (7-18); CALCIUM 9.2 MG/DL (8.5-10.1); CARBON DIOXIDE 23 MMOL/L (21-32); CHLORIDE 107 MMOL/L (98-107); CREATININE 1.3 MG/DL (0.55-1.30); POTASSIUM 5.2 MMOL/L (3.5-5.1); SODIUM 142 MMOL/L (136-145)
--- NOTE | 2019-03-24 21:21 | Emergency Room Report ---
History of Present Illness General Chief Complaint: Dyspnea/Respdistress Source: Patient Present Illness HPI 63-year-old male presents ED for evaluation. Brought in by EMS. Complaining of shortness of breath. Started 3 days ago. History of CHF. Notes leg swelling. States he is compliant with his medications. Denies chest pain. Denies fevers or chills. Notes epigastric pain with nausea and vomiting. No other aggravating relieving factors. Denies any other associated symptoms Allergies: Coded Allergies: IODINE (Verified Allergy, Unknown, 01/24/19) Uncoded Allergies: Shell fish (Allergy, Severe, 01/25/19) Patient History Past Medical History: HTN Past Surgical History: none Pertinent Family History: none Social History: Denies: smoking, alcohol use, drug use Immunizations: UTD Reviewed Nursing Documentation: PMH: Agreed; PSxH: Agreed Nursing Documentation-PMH Hx Hypertension: Yes Hx Pacemaker: No Hx Asthma: No Hx COPD: No Hx Diabetes: No Hx Cancer: No Hx Gastrointestinal Problems: No Hx Dialysis: No Hx Neurological Problems: No Hx Cerebrovascular Accident: No Hx Seizures: No Review of Systems All Other Systems: negative except mentioned in HPI Physical Exam Vital Signs Date Time Temp Pulse Resp B/P (MAP) Pulse Ox O2 Delivery O2 Flow Rate FiO2 03/24/19 19:59 97.5 112 22 138/110 (119) 100 Room Air Sp02 EP Interpretation: reviewed, normal General Appearance: no apparent distress, alert, GCS 15, non-toxic Head: normocephalic, atraumatic Eyes: bilateral eye normal inspection, bilateral eye PERRL ENT: hearing grossly normal, normal pharynx, no angioedema, normal voice Neck: full range of motion, supple/symm/no masses Respiratory: chest non-tender, normal breath sounds, crackles, speaking full sentences Cardiovascular #1: no edema, tachycardia Cardiovascular #2: 2+ carotid (R), 2+ carotid (L), 2+ radial (R), 2+ radial (L) , 2+ dorsalis pedis (R), 2+ dorsalis pedis (L) Gastrointestinal: normal bowel sounds, non tender, soft, non-distended, no guarding, no rebound Rectal: deferred Genitourinary: normal inspection, no CVA tenderness Musculoskeletal: back normal, normal range of motion, gait/station normal, non- tender Neurologic: alert, motor strength/tone normal, oriented x3, sensory intact, responsive, speech normal Psychiatric: judgement/insight normal, memory normal, mood/affect normal, no suicidal/homicidal ideation Reflexes: 3+ bicep (R), 3+ bicep (L), 3+ tricep (R), 3+ tricep (L), 3+ knee (R) , 3+ knee (L) Skin: other - see nursing skin notes Lymphatic: no adenopathy Medical Decision Making Diagnostic Impression: Primary Impression: CHF (congestive heart failure) Qualified Codes: I50.9 - Heart failure, unspecified ER Course Hospital Course 63-year-old male presents ED complaining of shortness of breath, leg swelling Differential diagnoses include: FL/unstable angina, contusion, muscle strain, PTX, rib fracture Clinical course Patient placed on stretcher. on quality assurance monitor chassis. After initial history and physical I ordered labs, EKG, chest x-ray, labs reviewed- no leukocytosis, hemoglobin/hematocrit stable, , troponins negative, BNP elevated EKG - NSR, no acute ischemic changes interpreted by me Chest x-ray- pulmonary congestion Lasix given. Case discussed with Dr. Pérez and he agreed to accept the patient to his service for further care and support I. I feel this is a highly complex case requiring extensive working including EKG/Rhythm strip, Xray/CT/US, Blood/urine lab work, repeat exams while in ED, and administration of strong opiates/narcotics for pain control, admission to hospital or close patient follow up. Diagnosis - CHF exacerbation admitted to telemetry in serious condition Labs Test 03/24/19 20:32 White Blood Count 6.8 K/UL (4.8-10.8) Red Blood Count 4.26 M/UL (4.70-6.10) Hemoglobin 12.4 G/DL (14.2-18.0) Hematocrit 40.9 % (42.0-52.0) Mean Corpuscular Volume 96 FL (80-99) Mean Corpuscular Hemoglobin 29.0 PG (27.0-31.0) Mean Corpuscular Hemoglobin Concent 30.3 G/DL (32.0-36.0) Red Cell Distribution Width 17.3 % (11.6-14.8) Platelet Count 266 K/UL (150-450) Mean Platelet Volume 6.8 FL (6.5-10.1) Neutrophils (%) (Auto) 63.6 % (45.0-75.0) Lymphocytes (%) (Auto) 23.5 % (20.0-45.0) Monocytes (%) (Auto) 8.9 % (1.0-10.0) Eosinophils (%) (Auto) 1.6 % (0.0-3.0) Basophils (%) (Auto) 2.4 % (0.0-2.0) Prothrombin Time 13.1 SEC (9.30-11.50) Prothromb Time International Ratio 1.2 (0.9-1.1) Activated Partial Thromboplast Time 26 SEC (23-33) Sodium Level 142 MMOL/L (136-145) Potassium Level 5.2 MMOL/L (3.5-5.1) Chloride Level 107 MMOL/L (98-107) Carbon Dioxide Level 23 MMOL/L (21-32) Anion Gap 12 mmol/L (5-15) Blood Urea Nitrogen 24 mg/dL (7-18) Creatinine 1.3 MG/DL (0.55-1.30) Estimat Glomerular Filtration Rate > 60 mL/min (>60) Glucose Level 107 MG/DL (74-106) Calcium Level 9.2 MG/DL (8.5-10.1) Total Bilirubin 1.3 MG/DL (0.2-1.0) Direct Bilirubin 0.4 MG/DL (0.0-0.3) Aspartate Amino Transf (AST/SGOT) 50 U/L (15-37) Alanine Aminotransferase (ALT/SGPT) 96 U/L (12-78) Alkaline Phosphatase 113 U/L (46-116) Troponin I 0.007 ng/mL (0.000-0.056) Pro-B-Type Natriuretic Peptide 7357 pg/mL (0-125) Total Protein 7.3 G/DL (6.4-8.2) Albumin 3.4 G/DL (3.4-5.0) Globulin 3.9 g/dL Albumin/Globulin Ratio 0.9 (1.0-2.7) EKG Diagnostic Results Rate: tachycardiac Rhythm: NSR ST Segments: no acute changes ASA given to the pt in ED: No Rhythm Strip Diag. Results EP Interpretation: yes Rhythm: NSR, no PVC's, no ectopy Chest X-Ray Diagnostic Results Chest X-Ray Diagnostic Results : Chest X-Ray Ordered: Yes # of Views/Limited/Complete: 1 View Indication: Shortness of Breath EP Interpretation: Yes Interpretation: no consolidation, no pneumothorax, other - cardiomegaly, pulmonary congestion Impression: Other - chf Electronically Signed by: Electronically signed by Cameron Faulkner MD Last Vital Signs Date Time Temp Pulse Resp B/P (MAP) Pulse Ox O2 Delivery O2 Flow Rate FiO2 03/24/19 20:09 117 18 Room Air 03/24/19 20:09 97.5 132/106 100 Status: improved Disposition: ADMITTED INPATIENT Condition: Serious Referrals: NON PHYSICIAN (PCP) Cameron Faulkner MD Mar 24, 2019 21:21
[2019-03-24 21:28] LABS: ALANINE AMINOTRANSFERASE 96 U/L (12-78); ALBUMIN 3.4 G/DL (3.4-5.0); ALBUMIN/GLOBULIN RATIO 0.9 (1.0-2.7); ALKALINE PHOSPHATASE 113 U/L (46-116); ASPARTATE AMINO TRANSFERASE 50 U/L (15-37); BILIRUBIN,TOTAL 1.3 MG/DL (0.2-1.0)
[2019-03-24 21:31] LABS: INR 1.2 (0.9-1.1)
[2019-03-24 21:45] LABS: BILIRUBIN,DIRECT 0.4 MG/DL (0.0-0.3)
[2019-03-24] MEDS ORDERED: Morphine Sulfate 2mg/ml Inj(IV/IM USE ONLY) IVP PRN (22:00)
[2019-03-24] MEDS ORDERED: CARVEDILOL25 MG ORAL (23:09)
[2019-03-24] MEDS ORDERED: LOVENOX10 M3 SUBQ (23:40)
[2019-03-24 23:42] VITALS: BP 135/98
--- NOTE | 2019-03-24 23:45 | NUR ---
ED Nurse Note: CRE, MRSA swabs, belongings list, and meds reconciled completed.
[2019-03-25] VITALS (7 sets, daily range): BP systolic 121–142; BP diastolic 80–96
--- NOTE | 2019-03-25 00:01 | NUR ---
ED Nurse Note: Report given to DAVID Gonzalez.
--- NOTE | 2019-03-25 00:30 | NUR ---
ED Nurse Note: Patient transported to telemetry unit via gurney on ACLS protocol with sales representative printing paper accompanied by 1 RN and central service tech in stable condition.
--- NOTE | 2019-03-25 00:40 | NUR ---
NURSE NOTES: Received report from DAVID Dumont, pt. brought up from ER, pt. in bed awake, A/O x's4- able to make needs known, no signs or symptoms of acute cardiac or respiratory distress noted, bed in lowest position and call light within easy reach, side rails up x's3- pt. aware to ask for assist if ambulating- as he stated he uses a walker at home. pt. appears to be resting comfortably in bed watching television, cardiac cath lab manager placed, full body assessment done, skin intact but dry- bilateral lower legs and ankles trace pitting edema, urinal at bedside and within easy reach, Left hand 20G IV intact and patent, safety measures continued, will continue with plan of care. Will call DR. Pérez for admitting orders. Addendum: 03/25/19 at 0427 by RICHA SUAREZ RN RN Medication reconcile reviewed with patient at bedside- No changes made.
--- NOTE | 2019-03-25 01:35 | NUR ---
NURSE NOTES: left message with exchange with Dutch- regarding pt. needs admitting orders- he will Ivelisse doctor- awaiting for call back from doctor.
--- NOTE | 2019-03-25 02:33 | NUR ---
NURSE NOTES: left message with exchange with Dutch gordon- regarding pt. needs admitting orders- he will Ivelisse doctor- awaiting for call back from doctor.
--- NOTE | 2019-03-25 03:05 | NUR ---
NURSE NOTES: 3rd message left with exchange with Dutch- regarding pt. needs admitting orders- he will Ivelisse doctor- per Dutch he called cell and home but not able to reach doctor-awaiting for call back from doctor.
--- NOTE | 2019-03-25 03:13 | NUR ---
NURSE NOTES: per sample preparation supervisor Marichuy Sow- to call DR. Echeverria for admission orders- will notify doctor.
--- NOTE | 2019-03-25 03:17 | NUR ---
NURSE NOTES: left message for DR. Echeverria, for admitting orders- awaiting for call back from doctor.
--- NOTE | 2019-03-25 04:10 | NUR ---
NURSE NOTES: Called DR. Ramires for admitting orders- med reconcile discussed with doctor to continue all home medications- but changes to Lovenox 40mg sub Q daily, diet cardiac, Zofran 4mg Q6hrs prn IV- doctor made aware potassium lab is 5.2- Lasix was given in ER- orders read back and verified.
--- NOTE | 2019-03-25 07:00 | NUR ---
HAND-OFF: Report given to Darrel, Rn, pt. remains stable and no signs of distress noted. Aware to f/u on additional admitting orders with DR. Pérez.
--- NOTE | 2019-03-25 07:20 | NUR ---
NURSE NOTES: Received report from DAVID Gonzalez. The patient is resting on the bed without acute distress or shortness of breath. The patient's bed in the lowest position, call light in reach, and fall and aspiration precaution reinforced. IV site intact and patent. Dr. Ramires was notified regarding potassium of 5.2, and the patient is on Lasix. Will continue plan of care.
[2019-03-25] MEDS: Carvedilol 25mg Tab ORAL SCH ×2 (08:21→21:05)
[2019-03-25] MEDS ORDERED: Enoxaparin 40mg Inj SUBQ SCH (09:00)
[2019-03-25] MEDS ORDERED: Lisinopril 20mg tab ORAL SCH ×2 (09:00→20:45)
[2019-03-25] MEDS ORDERED: Furosemide 40mg tab ORAL SCH ×2 (09:00→14:00)
--- NOTE | 2019-03-25 09:00 | NUR ---
NURSE NOTES: The patient is stable without acute distress or shortness of breath. The patient denies of shortness of breath in room air. Will continue plan of care.
--- NOTE | 2019-03-25 11:14 | Consultation ---
History of Present Illness General Date patient seen: Mar 25, 2019 Chief Complaint: Dyspnea/Respdistress Present Illness HPI 63-year-old male with endstage heart disease, EF of 20 %, with left ventricular thrombosis, recently discharged [place] [facility] presented to ER again with CC of shortness of breath. Patient denies being a smoker. He reports having increased lower extremity swelling for the past 2 weeks despite taking his oral Lasix. Allergies: Coded Allergies: IODINE (Verified Allergy, Unknown, 01/24/19) Uncoded Allergies: Shell fish (Allergy, Severe, 01/25/19) Medication History Scheduled Carvedilol* (Carvedilol*), 20 MG ORAL EVERY 12 HOURS, (Reported) Enoxaparin* (Lovenox*), 100 MG SUBQ DAILY, (Reported) Furosemide* (Lasix*), 40 MG ORAL EVERY 12 HOURS Lisinopril (Lisinopril*), 20 MG ORAL DAILY, (Reported) Discontinued Medications Carvedilol (Coreg), 12.5 MG ORAL EVERY 12 HOURS Discontinued Reason: Medication dose changed Enoxaparin* (Lovenox*), 100 MG SUBQ EVERY 12 HOURS Discontinued Reason: MD discontinued med Furosemide* (Lasix*), 80 MG ORAL EVERY 12 HOURS Discontinued Reason: MD discontinued med Warfarin Sod (Coumadin*), 7.5 MG ORAL DAILY Discontinued Reason: MD discontinued med Patient History Healthcare decision maker none Resuscitation status Full Code Advanced Directive on File Past Medical/Surgical History Past Medical/Surgical History: (1) Left ventricular ejection fraction of 21% to 30% (2) Left ventricular thrombus Review of Systems All Other Systems: negative except mentioned in HPI Physical Exam General Appearance: WD/WN Lines, tubes and drains: peripheral HEENT: normocephalic, anicteric Neck: non-tender, normal alignment Respiratory/Chest: rhonchi - left, rhonchi - right Cardiovascular/Chest: normal peripheral pulses, normal rate Abdomen: normal bowel sounds, non tender Genitourinary/Rectal: normal genital exam, normal rectal exam Extremities: normal range of motion, non-tender Skin Exam: normal pigmentation Neurologic: dot compliance manager II-XII grossly normal Last 24 Hour Vital Signs Date Time Temp Pulse Resp B/P (MAP) Pulse Ox O2 Delivery O2 Flow Rate FiO2 03/25/19 08:40 102 03/25/19 08:22 142/83 03/25/19 08:21 94 142/83 03/25/19 08:00 96.3 94 20 142/83 (102) 99 03/25/19 08:00 Room Air 03/25/19 08:00 Room Air 03/25/19 04:27 92 03/25/19 04:00 97.5 90 20 121/80 (94) 97 03/25/19 04:00 Room Air 03/25/19 01:15 Room Air 03/25/19 01:14 98.2 96 20 142/89 96 Room Air 03/25/19 01:02 Room Air 03/25/19 00:53 97.9 89 18 135/96 (109) 98 03/25/19 00:52 93 03/24/19 23:42 98.0 92 20 135/98 98 Room Air 03/24/19 20:09 117 18 Room Air 03/24/19 20:09 97.5 117 18 132/106 100 Room Air 03/24/19 19:59 97.5 112 22 138/110 (119) 100 Room Air Intake and Output 03/24/19 03/25/19 18:59 06:59 Intake Total 0 ml Output Total 1450 ml Balance -1450 ml Intake Oral 0 ml Output Urine Total 1450 ml Laboratory Tests Test 03/24/19 20:32 White Blood Count 6.8 K/UL (4.8-10.8) Red Blood Count 4.26 M/UL (4.70-6.10) L Hemoglobin 12.4 G/DL (14.2-18.0) L Hematocrit 40.9 % (42.0-52.0) L Mean Corpuscular Volume 96 FL (80-99) Mean Corpuscular Hemoglobin 29.0 PG (27.0-31.0) Mean Corpuscular Hemoglobin Concent 30.3 G/DL (32.0-36.0) L Red Cell Distribution Width 17.3 % (11.6-14.8) H Platelet Count 266 K/UL (150-450) Mean Platelet Volume 6.8 FL (6.5-10.1) Neutrophils (%) (Auto) 63.6 % (45.0-75.0) Lymphocytes (%) (Auto) 23.5 % (20.0-45.0) Monocytes (%) (Auto) 8.9 % (1.0-10.0) Eosinophils (%) (Auto) 1.6 % (0.0-3.0) Basophils (%) (Auto) 2.4 % (0.0-2.0) H Prothrombin Time 13.1 SEC (9.30-11.50) H Prothromb Time International Ratio 1.2 (0.9-1.1) H Activated Partial Thromboplast Time 26 SEC (23-33) Sodium Level 142 MMOL/L (136-145) Potassium Level 5.2 MMOL/L (3.5-5.1) H Chloride Level 107 MMOL/L (98-107) Carbon Dioxide Level 23 MMOL/L (21-32) Anion Gap 12 mmol/L (5-15) Blood Urea Nitrogen 24 mg/dL (7-18) H Creatinine 1.3 MG/DL (0.55-1.30) Estimat Glomerular Filtration Rate > 60 mL/min (>60) Glucose Level 107 MG/DL (74-106) H Calcium Level 9.2 MG/DL (8.5-10.1) Total Bilirubin 1.3 MG/DL (0.2-1.0) H Direct Bilirubin 0.4 MG/DL (0.0-0.3) H Aspartate Amino Transf (AST/SGOT) 50 U/L (15-37) H Alanine Aminotransferase (ALT/SGPT) 96 U/L (12-78) H Alkaline Phosphatase 113 U/L (46-116) Troponin I 0.007 ng/mL (0.000-0.056) Pro-B-Type Natriuretic Peptide 7357 pg/mL (0-125) H Total Protein 7.3 G/DL (6.4-8.2) Albumin 3.4 G/DL (3.4-5.0) Globulin 3.9 g/dL Albumin/Globulin Ratio 0.9 (1.0-2.7) L Microbiology Date/Time Source Procedure Growth Status 03/24/19 22:42 Rectum Received Height (Feet): 6 Height (Inches): 1.00 Weight (Pounds): 219 Medications Current Medications Medications (Trade) Dose Ordered Sig/Rebeca Route PRN Reason Start Time Stop Time Status Last Admin Dose Admin Carvedilol (Coreg) 25 mg EVERY 12 HOURS ORAL 03/25/19 09:00 3/13/20 08:59 03/25/19 08:21 Enoxaparin Sodium (Lovenox) 40 mg DAILY SUBQ 03/25/19 09:00 04/24/19 08:59 03/25/19 08:23 Furosemide (Lasix) 40 mg EVERY 12 HOURS ORAL 03/25/19 09:00 04/24/19 08:59 03/25/19 08:21 Lisinopril (PriniviL) 20 mg DAILY ORAL 03/25/19 09:00 04/24/19 08:59 03/25/19 08:22 Ondansetron HCl (Zofran) 4 mg Q6H PRN IVP Nausea & Vomiting 03/25/19 04:15 04/24/19 04:14 Assessment/Plan Problem List: (1) Acute on chronic systolic congestive heart failure ICD Codes: I50.23 - Acute on chronic systolic (congestive) heart failure SNOMED: 728149775, 286895714 (2) Left ventricular thrombus ICD Codes: I51.3 - Intracardiac thrombosis, not elsewhere classified SNOMED: 874552965 (3) Left ventricular ejection fraction of 21% to 30% ICD Codes: R93.1 - Abnormal findings on diagnostic imaging of heart and coronary circulation SNOMED: 52979120, 951833369 (4) Pulmonary hypertension ICD Codes: I27.20 - Pulmonary hypertension, unspecified SNOMED: 75411238 Assessment/Plan: Diuretics anticoagulants optimize cardiac meds closely monitor intake and output Tito Echeverria MD Mar 25, 2019 11:14
--- NOTE | 2019-03-25 11:55 | NUR ---
NURSE NOTES: Dr. Echeverria at nurse station, spoke with Carey of pharmacy regarding Lovenox dosage. Noted. Will continue to monitor patient.
--- NOTE | 2019-03-25 11:56 | Diagnostic Imaging Report ---
. Indication: Shortness of breath Technique: One view of the chest Comparison: 02/27/2019 Findings: Previously demonstrated right-sided pleural effusion and basilar opacity is no longer evident. Lungs and pleural spaces are currently clear. The heart remains enlarged. There is improved aeration of the left lung base as well. Impression: Cardiomegaly. No acute process
[2019-03-25] MEDS ORDERED: Enoxaparin 100mg Inj SUBQ SCH (12:00)
--- NOTE | 2019-03-25 12:04 | NUR ---
NURSE NOTES: Called and spoke with Dr. Yoder regarding new cardiology consult for patient. Dr. Doran acknowledged. Will continue to monitor patient.
--- NOTE | 2019-03-25 13:30 | NUR ---
NURSE NOTES: Dr. Echeverria noted changing patient's Lovenox 40 mg SQ QD to Lovenox 100 mg SQ Q12HR, please read Dr. Echeverria's notes. Informed Dr. Echeverria that patient received Lovenox 40 mg SQ this morning, Dr. Echeverria acknowledged and ordered Lovenox 60 mg SQ x 1 for this afternoon. Order entered, noted, and carried out. Charge nurse made aware. Will continue to monitor patient.
[2019-03-25] MEDS ORDERED: Enoxaparin 60mg Inj SUBQ SCH (13:34)
--- NOTE | 2019-03-25 15:50 | NUR ---
NURSE NOTES: Contacted and informed Dr. Echeverria that patient c/o 10/10 sharp abdominal pain and nausea. VS: BP 127/85, HR 90, SpO2 100% room air. Gave x one PRN Zofran, pt states nausea relieved. No PRN pain medications noted at this time. Dr. Echeverria acknowledged and ordered Pantoprazole [address] Thayer for GI consult. Deferred pain medication to GI consult at this time. Noted. Order entered, noted, and carried out. Will continue to monitor patient.
[2019-03-25] MEDS ORDERED: Morphine Sulfate 2mg/ml Inj(IV/IM USE ONLY) IVP SCH (16:15)
--- NOTE | 2019-03-25 16:15 | NUR ---
NURSE NOTES: Contacted and informed Dr. Thayer of new GI consult for 10/10 sharp abdominal pain and nausea. Dr. Thayer acknowledged and ordered Zofran 4 mg IV Q8HR for nausea and vomiting, Morphine sulfate 2 mg IV x 1, and CT abdomen with contrast, informed Dr. Thayer that patient is allergic to Iodine and shellfish. Dr. Thayer acknowledged and ordered STAT Abdominal ultrasound. Informed ultrasound department and informed of STAT Abd US, ultrasound department and informed this nurse will perform abdominal ultrasound at 1800 hours. Will keep patient NPO until procedure. Patient verbalized understanding. Will continue to monitor patient.
--- NOTE | 2019-03-25 16:20 | NUR ---
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 97.5 HR 112 RR 22 B/P 138/110 K 5.2 BUN 24 AST 50 ALT 96 BNP 7357 CXR= Cardiomegaly. No acute process IS: ZOFRAN IV PEPCID IV LASIX IV MORPHINE IV ADMITTED TO STEP DOWN STEP DOWN STATUS
--- NOTE | 2019-03-25 18:00 | History and Physical Report ---
DATE OF ADMISSION: 03/24/2019 DATE AND TIME SEEN: 03/25/2019 at 2 p.m. CONSULTANTS: 1. Tito Echeverria M.D. 2. Cisco Yoder M.D. CHIEF COMPLAINT: Shortness of breath, CHF exacerbation. BRIEF HISTORY: This is a 63-year-old male, who lives at home, presented with one-week of increased shortness of breath, came to [place] last night, was diagnosed with CHF exacerbation and hypertension, admitted to step-down for further care. Currently, slight short of breath. No complaint. REVIEW OF SYSTEMS: No chest pain. Slight short of breath. No nausea, vomiting, or diarrhea. PAST MEDICAL HISTORY: Hypertension and CHF. PAST SURGICAL HISTORY: None. ALLERGIES: Iodine. MEDICATIONS: Include enoxaparin, furosemide, lisinopril, carvedilol, Zofran, morphine, Tylenol, and famotidine. SOCIAL HISTORY: No smoking. No alcohol. No intravenous drug abuse. FAMILY HISTORY: Noncontributory. PHYSICAL EXAMINATION: GENERAL: Calm in bed, oriented x3, in no acute distress. VITAL SIGNS: Temperature 97 degrees, pulse 95, respirations 20, and blood pressure 122/84. CARDIOVASCULAR: No murmur. LUNGS: Poor air exchange. Slight basilar crackles noted. ABDOMEN: Bowel sounds positive. Nontender and nondistended. EXTREMITIES: No cyanosis, clubbing, or edema. NEUROLOGIC: The patient moves all extremities, slightly weak. LABORATORY AND DIAGNOSTIC DATA: Labs at this time show hemoglobin and hematocrit 12.4/ , otherwise CBC is normal. BMP shows potassium 5.2, BUN 24. AST 50, ALT 96. Troponin 0.007. BNP 7357. INR is 1.2, PTT 26. ASSESSMENT: 1. Shortness of breath. 2. Congestive heart failure exacerbation. 3. Hypertension. 4. Anemia. PLAN: 1. O2 and pulmonary treatment. 2. Blood pressure control. 3. Resume home medications. 4. Diuresis as tolerated. 5. Troponin q.8 h. x3. 6. EKG in a.m. 7. Cardiology and Pulmonary followup. 8. CBC and BMP in the morning. Law Pérez D.O. DR: CITLALY JOB#: [id number] CC:
--- NOTE | 2019-03-25 19:05 | NUR ---
HAND-OFF: Report given to DAVID Hogan. The patient is resting on the bed without acute distress or shortness of breath. The pateint's bed in the lowest position, call light in reach, and fall and aspiration precaution reinforced. IV site intact and patent. Completed abdominal ultrasound. Endorsed plan of care.
--- NOTE | 2019-03-25 19:30 | Diagnostic Imaging Report ---
Indication: Abnormal liver function tests, abnormal renal function tests, abdominal pain Technique: Coyle-scale and duplex images of the upper abdomen were obtained Comparison: none Findings: Gallbladder is unremarkable, without stones, wall thickening, nor pericholecystic fluid. Sonographic Martin's sign is negative. Common bile duct measures 5 mm in diameter. No intrahepatic biliary ductal dilatation. Liver demonstrates normal echogenicity, no focal abnormality. It is mildly enlarged Portal vein and hepatic veins are patent. Pancreas is incompletely visualized due to overlying bowel gas, visualized portions are unremarkable. Spleen is unremarkable. Left kidney measures 11.9 cm in length. Right kidney measures 10.2 cm length. Both kidneys demonstrate normal echogenicity. There is no hydronephrosis. No focal abnormality . Abdominal aorta is partially obscured by bowel gas, visualized portions are non-aneurysmal . There is a right pleural effusion Impression: Right pleural effusion Negative for gallstones or dilated ducts Borderline hepatomegaly Note inability to visualize portions of the abdominal aorta and pancreas This agrees with the preliminary interpretation provided overnight by [facility] teleradiology service.
--- NOTE | 2019-03-25 19:36 | NUR ---
NURSE NOTES: Received report from Ailyn RN and Darrel RN. The patient is observed resting on the bed. Pt remains alert and oriented x3-4, currently denies pain. Pt remains SR on tele monitor with no s/sx of cardiac distress. Pt is on RA with an O2 saturation of 98% noted and no s/sx of distress. Bilateral lower extremity edema noted otherwise skin remains intact. L Wrist 20g IV catheter noted which remains asymptomatic, intact and patent. Pt able to ambulate but encouraged to use call light. Pt remains resting in bed; bed remains in lowest position with safety wheels engaged, side rails up x3, call light within reach and bed alarm activated. Diagnostics and lab results reviewed. Will continue plan of care. Will continue to monitor.
--- NOTE | 2019-03-25 19:45 | NUR ---
NURSE NOTES: Paraoptometric present at bedside to assess patient; putting in orders. Will carry out orders. Will continue to monitor.
--- NOTE | 2019-03-25 20:37 | Cardiology Progress Note ---
Assessment/Plan Assessment/Plan [id number] Objective Last 24 Hour Vital Signs Date Time Temp Pulse Resp B/P (MAP) Pulse Ox O2 Delivery O2 Flow Rate FiO2 03/25/19 16:00 92 03/25/19 16:00 97.5 84 18 133/91 (105) 100 03/25/19 16:00 Room Air 03/25/19 12:00 Room Air 03/25/19 12:00 83 03/25/19 11:54 97.5 95 20 122/84 (97) 100 03/25/19 08:40 102 03/25/19 08:22 142/83 03/25/19 08:21 94 142/83 03/25/19 08:00 96.3 94 20 142/83 (102) 99 03/25/19 08:00 Room Air 03/25/19 08:00 Room Air 03/25/19 04:27 92 03/25/19 04:00 97.5 90 20 121/80 (94) 97 03/25/19 04:00 Room Air 03/25/19 01:15 Room Air 03/25/19 01:14 98.2 96 20 142/89 96 Room Air 03/25/19 01:02 Room Air 03/25/19 00:53 97.9 89 18 135/96 (109) 98 03/25/19 00:52 93 03/24/19 23:42 98.0 92 20 135/98 98 Room Air Intake and Output 03/24/19 03/25/19 19:00 07:00 Intake Total 0 ml Output Total 1450 ml Balance -1450 ml Intake Oral 0 ml Output Urine Total 1450 ml Microbiology Date/Time Source Procedure Growth Status 03/24/19 22:42 Rectum Received Cisco Yoder MD Mar 25, 2019 20:37
[2019-03-25] MEDS ORDERED: Warfarin Sodium 5mg ORAL SCH (21:00)
[2019-03-25] MEDS ORDERED: MULTI VITAMIN1 EACH ORAL (21:06)
[2019-03-25] MEDS ORDERED: CENTRUM SILVER1 EAC2 PO (21:06)
[2019-03-25] MEDS ORDERED: VITAMIN B-12500 MCG ORAL (21:06)
[2019-03-25] MEDS ORDERED: PEPTO-BISM262 MG/15 PO (21:06)
[2019-03-25] MEDS ORDERED: WARFARIN SODIUM1 MG ORAL (21:06)
[2019-03-25] MEDS ORDERED: TUMS DUAL ACTI1 EACH PO (21:06)
--- NOTE | 2019-03-25 21:06 | NUR ---
NURSE NOTES: Assessed patient for s/sx of bleeding, none noted. Pt educated on Coumadin and agrees to report s/sx of adverse effects. Medications administered as ordered. No adverse effects noted at this time. Will continue to monitor.
[2019-03-25] MEDS: Enoxaparin 100mg Inj SUBQ SCH (21:07)
--- NOTE | 2019-03-25 22:05 | NUR ---
NURSE NOTES: Spoke with [facility] pharmacy. Lasix shows on eMAR as due though scanned and given to patient. Change Booth Attendant present and changing orders. Per [facility] pharmacy IT issue, no additional steps necessary at this time. Will call IT to further investigate issue. ONE dose of lasix given as ordered.
[2019-03-26] VITALS: BP 131/72
--- NOTE | 2019-03-26 | NUR ---
NURSE NOTES: Pt provided with materials for bed bath, oral care and provided with a linen change. Pt tolerated care well and performed care with minimal assistance. Pt remains resting in bed; bed remains in lowest position with safety wheels engaged, side rails up x3, call light within reach and bed alarm activated.
--- NOTE | 2019-03-26 00:45 | Consultation ---
DATE OF CONSULTATION: 03/25/2019 CARDIOLOGY CONSULTATION CONSULTING PHYSICIAN: Cisco Yoder M.D. REFERRING PHYSICIAN: Law Pérez D.O. REASON FOR REFERRAL: Shortness of breath. HISTORY OF PRESENT ILLNESS: This is an elderly middle-aged gentleman with a history of cardiomyopathy, congestive heart failure with frequent hospitalizations, last time he was in the hospital and discharged on 03/07/2019, he comes back after 2 weeks because of increasing shortness of breath. He states he is compliant with the diuretic, Lasix 40 mg once a day. He has actually been followed by the [facility] as well. His INR and Lovenox has been adjusted through the [facility] system, but he has been getting more short of breath. He states he has brought a scale to weigh himself and he has not really done anything to counteract his weight gain and he was instructed to do that at this time as he gets out of the hospital, to weigh himself and increase the dose of diuretics until the weight improves and he was told to follow up with the [facility] and maybe even go to the emergency room at the [facility] himself. Should he have more symptoms before he gets really bad, then he has to call 911. At the [facility], may have been started workup towards possibility of transplant for him. He has shortness of breath all the time. There is PND, orthopnea, positive dizziness, lightheadedness, palpitations. No chest pains. 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 ALLERGIES: To iodine. SOCIAL HISTORY: He does not smoke. He states he used to, and alcohol he used to. 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 REVIEW OF SYSTEMS: GASTROINTESTINAL: He has had significant nausea. No vomiting, diarrhea, or constipation. No black or bloody stool. GENITOURINARY: Negative. PULMONARY: Negative. CONSTITUTIONAL: Negative. PHYSICAL EXAMINATION: GENERAL: Shows to be a middle-aged gentleman, in no respiratory distress. VITAL SIGNS: Temperature is 97.5, blood pressure 132/91, heart rate of 84, saturation 100% on room air. HEENT: Unremarkable. NECK: Supple. No jugular venous distention. LUNGS: Decreased breath sounds noted at the bases. CARDIAC: Regular rate and rhythm. No heaves or thrills noted. ABDOMEN: Soft, nontender. Positive bowel sounds. EXTREMITIES: A 1 to 2+ edema of the lower extremities bilaterally. LABORATORY AND DIAGNOSTIC DATA: White count is 6.8, hemoglobin 12.4, and platelet count 266,000. Sodium 140, potassium 5.2, chloride 107, bicarbonate 23, BUN 24, creatinine 1.3, and a glucose of 107. Troponin is 0.07. ALT of 50, AST of 96, and alkaline phosphatase of 113. His INR was only 1.2 and PTT of 26, and a chest x-ray performed on 03/24/2019 shows cardiomegaly, no acute processes. ASSESSMENT: 1. Acute systolic congestive heart failure. 2. Cardiomyopathy. 3. Mitral regurgitation, tricuspid regurgitation. 4. Possible left ventricular thrombus, on anticoagulation. The patient should be continued on p.o. diuretics and MEHRAN inhibitors and beta-blockers. INR should be adjusted. The Lovenox will be administered while in-house until INR is adequate. The patient is followed at the [facility] for his Coumadin that he states was adjusted this past Saturday. Diuretics, sodium restriction, and fluid restriction was discussed with the patient. Daily weights and increasing of the diuretics with weight gain of 2 to 3 pounds from baseline was discussed with the patient in detail. Followup instructions at the [facility] was provided. Cisco Yoder M.D. DR: ROB JOB#: [id number] CC:
--- NOTE | 2019-03-26 02:51 | NUR ---
NURSE NOTES: card doffer not recording properly. Attempted to trouble shoot tele box and leads. Pt refused, educated and continues to refuse at this time. Will continue to monitor. Will reattempt.
[2019-03-26 04:00] VITALS: BP 121/75
[2019-03-26 05:28] LABS: BASOPHILS % (AUTO) 2.1 % (0.0-2.0); EOSINOPHILS % (AUTO) 3.9 % (0.0-3.0); HEMATOCRIT 36.5 % (42.0-52.0); HEMOGLOBIN 12.4 G/DL (14.2-18.0); LYMPHOCYTES % (AUTO) 37.1 % (20.0-45.0); MEAN CORPUSCULAR VOLUME 90 FL (80-99); MONOCYTES % (AUTO) 12.5 % (1.0-10.0); NEUTROPHILS % (AUTO) 44.3 % (45.0-75.0); PLATELET COUNT 248 K/UL (150-450); RED BLOOD COUNT 4.06 M/UL (4.70-6.10); RED CELL DISTRIBUTION WIDTH 15.5 % (11.6-14.8)
[2019-03-26 05:37] LABS: ANION GAP 9 mmol/L (5-15); BLOOD UREA NITROGEN 28 mg/dL (7-18); CALCIUM 8.8 MG/DL (8.5-10.1); CARBON DIOXIDE 27 MMOL/L (21-32); CHLORIDE 104 MMOL/L (98-107); CREATININE 1.5 MG/DL (0.55-1.30); SODIUM 140 MMOL/L (136-145)
[2019-03-26 05:39] LABS: INR 1.2 (0.9-1.1)
--- NOTE | 2019-03-26 06:26 | NUR ---
NURSE NOTES: Pt complains of nausea and requests Zofran. Administered Zofran as ordered, no adverse effects noted at this time. Pt placed on hard wire tele monitoring. Pt agrees to use call light for assistance despite being ambulatory. Pt remains resting in bed; bed remains in lowest position with safety wheels engaged, side rails up x3, call light within reach and bed alarm activated. Will continue plan of care. Will continue to monitor.
--- NOTE | 2019-03-26 07:20 | NUR ---
HAND-OFF: Report given to Nataly Gaitan RN. Pt remains stable at this time.
--- NOTE | 2019-03-26 07:50 | NUR ---
NURSE NOTES: received pt in the bed, awake, alert, oriented, vital signs stable, no co pain, no SOB, respiration regular, on RA, skin warm and dry to touch, intact, abdomen soft, use urinal, yellow clear urine, bed in low position, call light within reach.
[2019-03-26 08:00] VITALS: BP 121/77
[2019-03-26] MEDS: Carvedilol 25mg Tab ORAL SCH ×2 (09:13→21:09)
[2019-03-26] MEDS: Lisinopril 20mg tab ORAL SCH ×2 (09:13→17:21)
[2019-03-26] MEDS: Enoxaparin 100mg Inj SUBQ SCH ×2 (09:15→21:11)
[2019-03-26 12:00] VITALS: BP 126/78
--- NOTE | 2019-03-26 12:03 | GI Initial Consult Note ---
History of Present Illness General Date patient seen: Mar 26, 2019 Time patient seen: 11:54 Reason for Hospitalization: Dyspnea/Respdistress Referring physician: JAY YIP Reason for Consultation: ABDOMINAL PAIN Present Illness HPI 63-year-old male presents ED for evaluation. Brought in by EMS. Complaining of shortness of breath. Started 3 days ago. History of CHF. Notes leg swelling. States he is compliant with his medications. Denies chest pain. Denies fevers or chills. Notes epigastric pain with nausea and vomiting. No other aggravating relieving factors. Denies any other associated symptoms. GI consulted for reported abdominal pain. Patient seen, awake alert oriented x4 no apparent distress. No active signs or symptoms of any nausea vomiting at the time of evaluation. According to the patient, he is been having right lower left lower quadrant abdominal pain with associated diarrhea. The abdomen is soft, mild tenderness to the left abdomen, nondistended. No rebounding or guarding noted. No peritoneal signs noted. Abdominal ultrasound was performed showed right pleural effusion. It was negative for any gallstones without any dilated ducts. Laboratory data reviewed; creatinine 1.5, total bilirubin 1.3, AST 50, ALT 96, alkaline phosphatase 113. The patient states he had a colonoscopy approximately 5 months ago but does not know the findings. Home Meds Active Scripts Furosemide* (LASIX*) 40 Mg Tablet, 40 MG ORAL EVERY 12 HOURS for 30 Days, #60 TAB Prov:Quinten Olmedo MD 01/31/19 Reported Medications Bismuth Subsalicylate (PEPTO-BISMOL) 262 Mg/15 Ml Oral.susp, 262 MG PO for anti acid, ML 03/25/19 Multivitamin W-Minerals/Lutein (CENTRUM SILVER ULTRA MEN'S TAB) 1 Each Tablet, 1 EACH PO for Supplement, TAB 03/25/19 Cyanocobalamin (Vitamin B-12)* (VITAMIN B-12*) 500 Mcg Tablet, 500 MCG ORAL DAILY for Supplement, #30 TAB 0 Refills 03/25/19 Multivitamin (MULTI VITAMIN DAILY) 1 Each Tablet, 1 TAB ORAL DAILY for Supplement, #30 TAB 0 Refills 03/25/19 Famotidine/Ca Carb/Mag Hydrox (TUMS DUAL ACTION TABLET CHEW) 1 Each Tab.chew, 1 EACH PO for Anti acid, TAB 03/25/19 Warfarin Sod* (WARFARIN SOD*) 1 Mg Tablet, 1 MG ORAL DAILY for anti-coagulant, TAB 03/25/19 Enoxaparin* (LOVENOX*) 100 Mg/Ml Inj, 100 MG SUBQ DAILY for blood thinner, #30 EA 0 Refills 03/24/19 Carvedilol* (CARVEDILOL*) 25 Mg Tablet, 20 MG ORAL EVERY 12 HOURS for HTN, TAB 03/24/19 Lisinopril (LISINOPRIL*) 20 Mg Tablet, 20 MG ORAL DAILY for Hypertension, TAB 02/26/19 Discontinued Scripts Warfarin Sod (COUMADIN*) 7.5 Mg Tablet, 7.5 MG ORAL DAILY for 10 Days, TAB Prov:Tito Echeverria MD 03/05/19 Enoxaparin* (LOVENOX*) 100 Mg/Ml Inj, 100 MG SUBQ EVERY 12 HOURS for 10 Days, MG Prov:Tito Echeverria MD 03/05/19 Furosemide* (LASIX*) 40 Mg Tablet, 80 MG ORAL EVERY 12 HOURS for 30 Days, TAB Prov:Tito Echeverria MD 03/05/19 Carvedilol (Coreg) 12.5 Mg Tablet, 12.5 MG ORAL EVERY 12 HOURS for 30 Days, #60 TAB Prov:Quinten Olmedo MD 01/31/19 Med list reviewed/reconciled: Yes Allergies: Coded Allergies: IODINE (Verified Allergy, Unknown, 01/24/19) Uncoded Allergies: Shell fish (Allergy, Severe, 01/25/19) Patient History History Provided By: Patient, Medical Record PMH Narrative Past Medical History: HTN Past Surgical History: none Pertinent Family History: none Social History: Denies: smoking, alcohol use, drug use Immunizations: UTD Reviewed Nursing Documentation: PMH: Agreed; PSxH: Agreed Nursing Documentation-PMH Hx Hypertension: Yes Hx Pacemaker: No Hx Asthma: No Hx COPD: No Hx Diabetes: No Hx Cancer: No Hx Gastrointestinal Problems: No Hx Dialysis: No Hx Neurological Problems: No Hx Cerebrovascular Accident: No Hx Seizures: No Social History: Denies: smoking, alcohol use, drug use, other Review of Systems All Other Systems: negative except mentioned in HPI Physical Exam Vital Signs Date Time Temp Pulse Resp B/P (MAP) Pulse Ox O2 Delivery O2 Flow Rate FiO2 03/24/19 19:59 97.5 112 22 138/110 (119) 100 Room Air Sp02 EP Interpretation: reviewed, normal Labs Laboratory Tests Test 03/26/19 04:35 White Blood Count 6.0 K/UL (4.8-10.8) Red Blood Count 4.06 M/UL (4.70-6.10) L Hemoglobin 12.4 G/DL (14.2-18.0) L Hematocrit 36.5 % (42.0-52.0) L Mean Corpuscular Volume 90 FL (80-99) Mean Corpuscular Hemoglobin 30.4 PG (27.0-31.0) Mean Corpuscular Hemoglobin Concent 33.8 G/DL (32.0-36.0) Red Cell Distribution Width 15.5 % (11.6-14.8) H Platelet Count 248 K/UL (150-450) Mean Platelet Volume 5.7 FL (6.5-10.1) L Neutrophils (%) (Auto) 44.3 % (45.0-75.0) L Lymphocytes (%) (Auto) 37.1 % (20.0-45.0) Monocytes (%) (Auto) 12.5 % (1.0-10.0) H Eosinophils (%) (Auto) 3.9 % (0.0-3.0) H Basophils (%) (Auto) 2.1 % (0.0-2.0) H Prothrombin Time 12.5 SEC (9.30-11.50) H Prothromb Time International Ratio 1.2 (0.9-1.1) H Sodium Level 140 MMOL/L (136-145) Potassium Level 4.0 MMOL/L (3.5-5.1) Chloride Level 104 MMOL/L (98-107) Carbon Dioxide Level 27 MMOL/L (21-32) Anion Gap 9 mmol/L (5-15) Blood Urea Nitrogen 28 mg/dL (7-18) H Creatinine 1.5 MG/DL (0.55-1.30) H Estimat Glomerular Filtration Rate 57.7 mL/min (>60) Glucose Level 108 MG/DL (74-106) H Calcium Level 8.8 MG/DL (8.5-10.1) General Appearance: well appearing, no apparent distress, alert Head: normocephalic EENT: PERRL/EOMI, normal ENT inspection Neck: supple Respiratory: normal breath sounds, no respiratory distress Cardiovascular: normal rate Gastrointestinal: normal inspection, non tender, soft, normal bowel sounds, non -distended Rectal: deferred Genitourinary: deferred Musculoskeletal: normal inspection, back normal Neurologic: alert, oriented x3, responsive, normal inspection Psychiatric: normal inspection, judgement/insight normal, memory normal Skin: normal inspection, normal color, no rash, warm/dry, palpation normal, well hydrated Lymphatic: normal inspection, no adenopathy Current Medications Current Medications Medications (Trade) Dose Ordered Sig/Rebeca Route PRN Reason Start Time Stop Time Status Last Admin Dose Admin Carvedilol (Coreg) 25 mg EVERY 12 HOURS ORAL 03/25/19 09:00 04/24/19 08:59 03/26/19 09:13 Enoxaparin Sodium (Lovenox) 100 mg Q12HR SUBQ 03/25/19 21:00 04/24/19 20:59 03/26/19 09:15 Furosemide (Lasix) 40 mg EVERY 8 HOURS IV 03/25/19 22:00 04/24/19 21:59 03/26/19 05:05 Lisinopril (PriniviL) 20 mg BID ORAL 03/26/19 09:00 04/25/19 08:59 03/26/19 09:13 Ondansetron HCl (Zofran) 4 mg Q8H PRN IVP Nausea & Vomiting 03/25/19 16:15 04/24/19 16:14 03/26/19 06:20 Pantoprazole (Protonix) 40 mg DAILY ORAL 03/26/19 09:00 04/25/19 08:59 03/26/19 09:13 Warfarin Sodium (Coumadin per pharmacy) 1 ea DAILY PRN MISC Per rx protocol 03/25/19 20:45 04/24/19 20:44 Warfarin Sodium (Coumadin) 7 mg COUMADIN PO 03/26/19 17:00 03/31/19 16:59 GI: Plan Problems: (1) Diarrhea (2) Abdominal pain Plan History of recent colonoscopy approximately 5 months ago with unknown findings Will obtain abdominal pelvis CT to evaluate pain. Send for stool studies, C. difficile if patient has persistent diarrhea Follow-up cardiology recommendations We will send for occult blood stool to evaluate for any GI bleed Trend LFTs Noted that the patient is currently on Coumadin PPI We will follow on a daily basis with any additional recommendations Discussed with Dr. Thayer. Thank you for this patient referral, we will follow. The patient was seen and examined at bedside and all new and available data was reviewed in the patients chart. I agree with the above findings, impression and plan. (Patient seen earlier today. Signature stamp does not reflect patient encounter time.). - MD Emiliana HernandezHoly Cross HospitalMichel ADVERTISING REP Mar 26, 2019 12:03
--- NOTE | 2019-03-26 12:14 | Pulmonology Progress Note ---
Assessment/Plan Problems: (1) Acute on chronic systolic congestive heart failure (2) Left ventricular thrombus (3) Left ventricular ejection fraction of 21% to 30% (4) Pulmonary hypertension Assessment/Plan hold lasix b/o rising creatinine to 1.5 on Coumadin and Lovenox titrate cardiac meds. Subjective Interval Events: c/o Nausea Allergies: Coded Allergies: IODINE (Verified Allergy, Unknown, 01/24/19) Uncoded Allergies: Shell fish (Allergy, Severe, 01/25/19) Objective Last 24 Hour Vital Signs Date Time Temp Pulse Resp B/P (MAP) Pulse Ox O2 Delivery O2 Flow Rate FiO2 03/26/19 09:13 121/77 03/26/19 09:13 77 121/77 03/26/19 09:00 Room Air 03/26/19 08:00 98.0 77 21 121/77 (92) 96 03/26/19 08:00 89 03/26/19 04:00 98.0 78 20 121/75 (90) 100 03/26/19 03:07 88 03/26/19 00:00 97.2 82 20 131/72 (91) 97 03/25/19 23:29 83 03/25/19 21:06 133/91 03/25/19 21:05 92 133/91 03/25/19 20:00 Room Air 03/25/19 20:00 97.0 84 20 124/94 (104) 99 03/25/19 19:02 98 03/25/19 16:00 92 03/25/19 16:00 97.5 84 18 133/91 (105) 100 03/25/19 16:00 Room Air Intake and Output 03/25/19 03/26/19 19:00 07:00 Intake Total 242 ml Output Total 1200 ml 1900 ml Balance -1200 ml -1658 ml Intake Oral 242 ml Output Urine Total 1200 ml 1900 ml # Voids 4 General Appearance: WD/WN HEENT: normocephalic, atraumatic Respiratory/Chest: chest wall non-tender, crackles/rales Cardiovascular: normal peripheral pulses, regular rhythm Abdomen: soft, non tender, no organomegaly Genitourinary: normal external genitalia Extremities: other - edema Microbiology Date/Time Source Procedure Growth Status 03/24/19 22:42 Rectum Received Laboratory Tests 03/26/19 04:35: White Blood Count 6.0, Red Blood Count 4.06L, Hemoglobin 12.4L, Hematocrit 36.5L , Mean Corpuscular Volume 90, Mean Corpuscular Hemoglobin 30.4, Mean Corpuscular Hemoglobin Concent 33.8, Red Cell Distribution Width 15.5H, Platelet Count 248, Mean Platelet Volume 5.7L, Neutrophils (%) (Auto) 44.3L, Lymphocytes (%) (Auto) 37.1, Monocytes (%) (Auto) 12.5H, Eosinophils (%) (Auto) 3.9H, Basophils (%) (Auto) 2.1H, Prothrombin Time 12.5H, Prothromb Time International Ratio 1.2H, Sodium Level 140, Potassium Level 4.0, Chloride Level 104, Carbon Dioxide Level 27, Anion Gap 9, Blood Urea Nitrogen 28H, Creatinine 1.5H, Estimat Glomerular Filtration Rate 57.7, Glucose Level 108H, Calcium Level 8.8 Current Medications Medications (Trade) Dose Ordered Sig/Rebeca Route PRN Reason Start Time Stop Time Status Last Admin Dose Admin Barium Sulfate (Readi-Cat 2) 450 ml NOW PRN ORAL Radiology Procedure 03/26/19 12:15 03/28/19 12:02 Carvedilol (Coreg) 25 mg EVERY 12 HOURS ORAL 03/25/19 09:00 04/24/19 08:59 03/26/19 09:13 Enoxaparin Sodium (Lovenox) 100 mg Q12HR SUBQ 03/25/19 21:00 04/24/19 20:59 03/26/19 09:15 Furosemide (Lasix) 40 mg EVERY 8 HOURS IV 03/25/19 22:00 04/24/19 21:59 03/26/19 05:05 Lisinopril (PriniviL) 20 mg BID ORAL 03/26/19 09:00 04/25/19 08:59 03/26/19 09:13 Ondansetron HCl (Zofran) 4 mg Q8H PRN IVP Nausea & Vomiting 03/25/19 16:15 04/24/19 16:14 03/26/19 06:20 Pantoprazole (Protonix) 40 mg DAILY ORAL 03/26/19 09:00 04/25/19 08:59 03/26/19 09:13 Warfarin Sodium (Coumadin per pharmacy) 1 ea DAILY PRN MISC Per rx protocol 03/25/19 20:45 04/24/19 20:44 Warfarin Sodium (Coumadin) 7 mg COUMADIN PO 03/26/19 17:00 03/31/19 16:59 Tito Echeverria MD Mar 26, 2019 12:14
--- NOTE | 2019-03-26 12:29 | NUR ---
CASE MANAGEMENT: REVIEW 03/26/2019 SI:Acute on chronic systolic congestive heart failure. T 98 HR 77 RR 21 B/P 121/77 SATS 96% ON RA LABS: BUN 28 CR 1.5 GLU 108 IS: COREG PO Q12H LISINOPRIL PO BID COUMADIN PO QD LOVENOX SUBQ Q12H SDU PLAN OF CARE: CXR CT A/P PT EVAL Obtain stool studies, C. difficile if patient has persistent diarrhea Trend LFTs
--- NOTE | 2019-03-26 13:12 | NUR ---
RD ASSESSMENT & RECOMMENDATIONS SEE CARE ACTIVITY FOR COMPLETE ASSESSMENT DAILY ESTIMATED NEEDS: Needs based on Cardiac, 88kg abw 25-30 kcals/kg 2666-5057 total kcals 1-1.2 g protein/kg 88-106 g total protein 20-25 mL/kg 6084-3469 total fluid mLs NUTRITION DIAGNOSIS: Altered nutrition related lab values R/T CHF, liver dysfunction as evidenced by elev BNP (7357), elev LFTs, T bili (1.3). CURRENT DIET:CARDIAC PO DIET RECOMMENDATIONS: Maintain Cardiac diet ADDITIONAL RECOMMENDATIONS: * Daily standing wt monitoring for accuracy - CHF dx, on a bed without bedscale * Monitor for continued good PO intake .
--- NOTE | 2019-03-26 14:27 | NUR ---
NURSE NOTES: pt resting, no co pain, CT abdomen done, continue monitoring.
--- NOTE | 2019-03-26 14:49 | NUR ---
P.T Notes: P.T evaluation completed. Pt is alert , O x 4 , pleasant and cooperative. Pt denied c/o but reports getting fatigue and SOB easily. BUE/BLE ROM and strength are WNL. Sitting and Standing Balance : WNL. Pt is independent in basic ADL/functional mobility and gait/locomotion despite above c/c.Vitals were stable during entire P.T eval. Current functional status does not warrant skilled P.T service at this time. Educated patient on energy conservation and encouraged OOB activities VS bedrest unless otherwise ordered. DC P.T services. thank you for this referral.
--- NOTE | 2019-03-26 15:34 | NUR ---
NURSE NOTES: Patient's transferred from [facility] to telemetry with assist of Nataly RN and Diann, Charge nurse. Patient's in stable condition, AO x 4, denies pain, denies shortness of breath, eyes open spontaneously, breathing unlabored and regular. Bed low and locked, call light within reach, side rails x 2, zoo director applied, bed alarm is armed. IV is saline locked, patent and flushed asymptomatic. All current needs met. Will continue to monitor.
--- NOTE | 2019-03-26 15:37 | NUR ---
NURSE NOTES: pt transferred to 2E as ordered, condition stable, report given to DARÍO HERNANDEZ.
[2019-03-26 15:56] VITALS: BP 138/82
--- NOTE | 2019-03-26 16:20 | Diagnostic Imaging Report ---
Indication: Abdominal pain Technique: Spiral acquisitions obtained through the abdomen and pelvis. Patient given oral contrast. No IV contrast utilized, reason not stated. Multiplanar reconstructions were generated. Total dose length product 526 mGycm. CTDIvol(s) 10 mGy. Dose reduction achieved using automated exposure control Comparison: None Findings: The appendix is normal. There is moderate retained colonic stool. There is colonic diverticulosis. No evidence of acute diverticulitis. Ingested contrast has traversed only part, not all, of the GI tract. No significant small bowel distention. No small bowel wall thickening. The distal esophagus, stomach, duodenum are unremarkable. No free or loculated intraperitoneal gas or fluid is evident. Lack of IV contrast limits assessment of the solid organs. The liver, gallbladder, bile ducts, pancreas, spleen, adrenals are unremarkable. Some cortical scarring is seen in the right kidney. A parenchymal calcification is seen in the left kidney. No calyceal or ureteral calculi, hydronephrosis, or hydroureter. There is a calcification projecting either in the bladder lumen or bladder wall just to the left of midline which measures approximately 2 mm diameter. No pelvic mass or adenopathy. The included lung bases demonstrate some consolidation, atelectasis, and small amount of pleural fluid on the right. There is a calcific granuloma at the right lung base. Some atelectasis and/or scarring is seen at the left lung base as well. The heart is enlarged. There is an old healed right seventh rib fracture deformity noted. Bone is seen bridging the left ninth and 10th ribs. Impression: Somewhat slow transit of contrast through the small bowel, nonspecific, probably does reflect slow motility. No acute abdominal or pelvic process otherwise 2 mm diameter calcification that may be in the bladder lumen; if so, could be. Previously passed ureteral calculus. There are no renal or ureteral findings to suggest recent stone passage, however. Moderate retained colonic stool. Could indicate constipation; correlate with clinical history Colonic diverticulosis. No evidence of diverticulitis Basilar pulmonary consolidation, atelectasis and/or scarring, right greater than left. Small amount of pleural fluid on the right. Bilateral rib deformities, as described Evidence of old granulomatous disease at the right lung base Other findings as noted, including right renal cortical scarring, left renal parenchymal calcification The CT scanner at [facility] is accredited by the [employer] and the scans are performed using protocols designed to limit radiation exposure to as low as reasonably achievable to attain images of sufficient resolution adequate for diagnostic evaluation.
[2019-03-26] MEDS ORDERED: WARFARIN SOD PO SCH ×2 (17:00)
--- NOTE | 2019-03-26 19:15 | NUR ---
NURSE NOTES: Received patient from Adelaida HERNANDEZ. Patient in bed, on room air, no signs of respiratory distress. Bed in low position, locked, call light within reach.
--- NOTE | 2019-03-26 19:17 | NUR ---
HAND-OFF: Report given to DAVID aLyton. Patient's stable, plan of care endorsed.
[2019-03-26 20:00] VITALS: BP 116/79
--- NOTE | 2019-03-26 20:08 | Cardiology Progress Note ---
Assessment/Plan Assessment/Plan 1. Acute systolic congestive heart failure. 2. Cardiomyopathy. 3. Mitral regurgitation, tricuspid regurgitation. 4. Possible left ventricular thrombus, on anticoagulation. keep on diuretic iv until ready to go home on acei on creog lovenox coudmadin crosss over better alerady at home will need lasix 60 mg bid lisinopril 20 mg bid couadmin and lovenox Subjective Cardiovascular: Denies: chest pain, lightheadedness, palpitations Respiratory: Reports: shortness of breath - better Gastrointestinal/Abdominal: Denies: abdominal pain Genitourinary: Denies: burning Objective Last 24 Hour Vital Signs Date Time Temp Pulse Resp B/P (MAP) Pulse Ox O2 Delivery O2 Flow Rate FiO2 03/26/19 17:21 138/82 03/26/19 16:00 78 03/26/19 15:56 97.7 80 19 138/82 (100) 100 03/26/19 12:00 98.2 85 18 126/78 (94) 98 03/26/19 12:00 75 03/26/19 09:13 121/77 03/26/19 09:13 77 121/77 03/26/19 09:00 Room Air 03/26/19 08:00 98.0 77 21 121/77 (92) 96 03/26/19 08:00 89 03/26/19 04:00 98.0 78 20 121/75 (90) 100 03/26/19 03:07 88 03/26/19 00:00 97.2 82 20 131/72 (91) 97 03/25/19 23:29 83 03/25/19 21:06 133/91 03/25/19 21:05 92 133/91 General Appearance: no apparent distress, alert Neck: supple Cardiovascular: normal rate Respiratory/Chest: crackles/rales Extremities: no swelling Intake and Output 03/25/19 03/26/19 19:00 07:00 Intake Total 242 ml Output Total 1200 ml 1900 ml Balance -1200 ml -1658 ml Intake Oral 242 ml Output Urine Total 1200 ml 1900 ml # Voids 4 Laboratory Tests Test 03/26/19 04:35 White Blood Count 6.0 K/UL (4.8-10.8) Red Blood Count 4.06 M/UL (4.70-6.10) L Hemoglobin 12.4 G/DL (14.2-18.0) L Hematocrit 36.5 % (42.0-52.0) L Mean Corpuscular Volume 90 FL (80-99) Mean Corpuscular Hemoglobin 30.4 PG (27.0-31.0) Mean Corpuscular Hemoglobin Concent 33.8 G/DL (32.0-36.0) Red Cell Distribution Width 15.5 % (11.6-14.8) H Platelet Count 248 K/UL (150-450) Mean Platelet Volume 5.7 FL (6.5-10.1) L Neutrophils (%) (Auto) 44.3 % (45.0-75.0) L Lymphocytes (%) (Auto) 37.1 % (20.0-45.0) Monocytes (%) (Auto) 12.5 % (1.0-10.0) H Eosinophils (%) (Auto) 3.9 % (0.0-3.0) H Basophils (%) (Auto) 2.1 % (0.0-2.0) H Prothrombin Time 12.5 SEC (9.30-11.50) H Prothromb Time International Ratio 1.2 (0.9-1.1) H Sodium Level 140 MMOL/L (136-145) Potassium Level 4.0 MMOL/L (3.5-5.1) Chloride Level 104 MMOL/L (98-107) Carbon Dioxide Level 27 MMOL/L (21-32) Anion Gap 9 mmol/L (5-15) Blood Urea Nitrogen 28 mg/dL (7-18) H Creatinine 1.5 MG/DL (0.55-1.30) H Estimat Glomerular Filtration Rate 57.7 mL/min (>60) Glucose Level 108 MG/DL (74-106) H Calcium Level 8.8 MG/DL (8.5-10.1) Microbiology Date/Time Source Procedure Growth Status 03/24/19 22:42 Rectum Received Cisco Yoder MD Mar 26, 2019 20:08
--- NOTE | 2019-03-26 20:48 | General Progress Note ---
Assessment/Plan Problem List: (1) Acute on chronic systolic congestive heart failure ICD Codes: I50.23 - Acute on chronic systolic (congestive) heart failure SNOMED: 040107761, 560246815 (2) Pulmonary hypertension ICD Codes: I27.20 - Pulmonary hypertension, unspecified SNOMED: 29693747 (3) Hypomagnesemia ICD Codes: E83.42 - Hypomagnesemia SNOMED: 107129984 (4) CHF (congestive heart failure) ICD Codes: I50.9 - Heart failure, unspecified SNOMED: 56259717 Qualifiers: Qualified Codes: I50.9 - Heart failure, unspecified (5) Left ventricular ejection fraction of 21% to 30% ICD Codes: R93.1 - Abnormal findings on diagnostic imaging of heart and coronary circulation SNOMED: 61532721, 596114990 Status: progressing Assessment/Plan: resp insuff chf afebrile pulmonary htn no dyspnea reviewedc chart and labs Subjective ROS Limited/Unobtainable: Yes Allergies: Coded Allergies: IODINE (Verified Allergy, Unknown, 01/24/19) Uncoded Allergies: Shell fish (Allergy, Severe, 01/25/19) Objective Last 24 Hour Vital Signs Date Time Temp Pulse Resp B/P (MAP) Pulse Ox O2 Delivery O2 Flow Rate FiO2 03/26/19 17:21 138/82 03/26/19 16:00 78 03/26/19 15:56 97.7 80 19 138/82 (100) 100 03/26/19 12:00 98.2 85 18 126/78 (94) 98 03/26/19 12:00 75 03/26/19 09:13 121/77 03/26/19 09:13 77 121/77 03/26/19 09:00 Room Air 03/26/19 08:00 98.0 77 21 121/77 (92) 96 03/26/19 08:00 89 03/26/19 04:00 98.0 78 20 121/75 (90) 100 03/26/19 03:07 88 03/26/19 00:00 97.2 82 20 131/72 (91) 97 03/25/19 23:29 83 03/25/19 21:06 133/91 03/25/19 21:05 92 133/91 Intake and Output 03/25/19 03/26/19 19:00 07:00 Intake Total 242 ml Output Total 1200 ml 1900 ml Balance -1200 ml -1658 ml Intake Oral 242 ml Output Urine Total 1200 ml 1900 ml # Voids 4 Laboratory Tests 03/26/19 04:35: White Blood Count 6.0, Red Blood Count 4.06L, Hemoglobin 12.4L, Hematocrit 36.5L , Mean Corpuscular Volume 90, Mean Corpuscular Hemoglobin 30.4, Mean Corpuscular Hemoglobin Concent 33.8, Red Cell Distribution Width 15.5H, Platelet Count 248, Mean Platelet Volume 5.7L, Neutrophils (%) (Auto) 44.3L, Lymphocytes (%) (Auto) 37.1, Monocytes (%) (Auto) 12.5H, Eosinophils (%) (Auto) 3.9H, Basophils (%) (Auto) 2.1H, Prothrombin Time 12.5H, Prothromb Time International Ratio 1.2H, Sodium Level 140, Potassium Level 4.0, Chloride Level 104, Carbon Dioxide Level 27, Anion Gap 9, Blood Urea Nitrogen 28H, Creatinine 1.5H, Estimat Glomerular Filtration Rate 57.7, Glucose Level 108H, Calcium Level 8.8 Height (Feet): 6 Height (Inches): 1.00 Weight (Pounds): 219 Cardiovascular: normal rate Abdomen: soft Lucinda Elliott MD Mar 26, 2019 20:48
[2019-03-27] VITALS: BP 107/80
[2019-03-27 04:00] VITALS: BP 110/77
[2019-03-27 07:18] LABS: INR 1.1 (0.9-1.1)
--- NOTE | 2019-03-27 07:30 | NUR ---
NURSE NOTES: Received pt from FIOR HERNANDEZ, Pt is awake and alert, pt is on RA, no SOB or acute respiratory distress noted. pt has intact iv access L wrist 20G SL. Pt is on continues heart monitoring. no complain of pain at this moment. pt is eating breakfast by observation. all needs attended, bed is locked and is in the lowest position, call light within easy reach. will continue to monitor.
[2019-03-27 07:32] LABS: BASOPHILS % (AUTO) 1.7 % (0.0-2.0); HEMATOCRIT 36.2 % (42.0-52.0); HEMOGLOBIN 12.1 G/DL (14.2-18.0); LYMPHOCYTES % (AUTO) 23.9 % (20.0-45.0); MEAN CORPUSCULAR VOLUME 90 FL (80-99); MONOCYTES % (AUTO) 13.4 % (1.0-10.0); NEUTROPHILS % (AUTO) 56.1 % (45.0-75.0); PLATELET COUNT 226 K/UL (150-450); RED BLOOD COUNT 4.02 M/UL (4.70-6.10); RED CELL DISTRIBUTION WIDTH 15.3 % (11.6-14.8); WHITE BLOOD COUNT 5.9 K/UL (4.8-10.8)
[2019-03-27 08:00] VITALS: BP 114/84
--- NOTE | 2019-03-27 08:00 | NUR ---
HAND-OFF: Report given to Danilo HERNANDEZ.
[2019-03-27 08:12] LABS: ALANINE AMINOTRANSFERASE 105 U/L (12-78); ALBUMIN/GLOBULIN RATIO 0.9 (1.0-2.7); ALKALINE PHOSPHATASE 105 U/L (46-116); ANION GAP 9 mmol/L (5-15); ASPARTATE AMINO TRANSFERASE 37 U/L (15-37); BILIRUBIN,TOTAL 0.6 MG/DL (0.2-1.0); BLOOD UREA NITROGEN 23 mg/dL (7-18); CALCIUM 8.5 MG/DL (8.5-10.1); CARBON DIOXIDE 27 MMOL/L (21-32); CHLORIDE 103 MMOL/L (98-107); CREATININE 1.3 MG/DL (0.55-1.30); POTASSIUM 3.8 MMOL/L (3.5-5.1); SODIUM 139 MMOL/L (136-145)
[2019-03-27] MEDS: Carvedilol 25mg Tab ORAL SCH ×2 (09:33→21:14)
[2019-03-27] MEDS: Lisinopril 20mg tab ORAL SCH ×2 (09:34→17:22)
[2019-03-27] MEDS: Enoxaparin 100mg Inj SUBQ SCH ×2 (09:37→21:19)
--- NOTE | 2019-03-27 10:38 | Diagnostic Imaging Report ---
Indication: Dyspnea Comparison: 03/24/2019 A single view chest radiograph was obtained. Findings: The heart is enlarged. Pulmonary vascularity is mildly prominent but unchanged. IMPRESSION: No significant change from the prior study.
--- NOTE | 2019-03-27 10:59 | NUR ---
RADIOLOGY DEPT., CHEST X-RAY DONE.-P.DYE
--- NOTE | 2019-03-27 11:43 | Pulmonology Progress Note ---
Assessment/Plan Problems: (1) Acute on chronic systolic congestive heart failure (2) Left ventricular thrombus (3) Left ventricular ejection fraction of 21% to 30% (4) Pulmonary hypertension Assessment/Plan creatinine is down to 1.[address] Douglas called to evaluate persistent nausea on Coumadin and Lovenox titrate cardiac meds. Subjective ROS Limited/Unobtainable: No Constitutional: Reports: no symptoms HEENT: Repors: no symptoms Allergies: Coded Allergies: IODINE (Verified Allergy, Unknown, 01/24/19) Uncoded Allergies: Shell fish (Allergy, Severe, 01/25/19) Objective Last 24 Hour Vital Signs Date Time Temp Pulse Resp B/P (MAP) Pulse Ox O2 Delivery O2 Flow Rate FiO2 03/27/19 09:34 114/84 03/27/19 09:33 87 114/84 03/27/19 08:00 96.8 87 18 114/84 (94) 97 03/27/19 07:49 78 03/27/19 04:00 80 03/27/19 04:00 98.6 81 20 110/77 (88) 98 03/27/19 00:00 98.2 77 20 107/80 (89) 95 03/27/19 00:00 95 03/26/19 21:09 85 116/79 03/26/19 21:00 Room Air 03/26/19 20:00 79 03/26/19 20:00 98.2 85 20 116/79 (91) 99 03/26/19 17:21 138/82 03/26/19 16:00 78 03/26/19 15:56 97.7 80 19 138/82 (100) 100 03/26/19 12:00 98.2 85 18 126/78 (94) 98 03/26/19 12:00 75 Intake and Output 03/26/19 03/27/19 19:00 07:00 Output Total 700 ml 800 ml Balance -700 ml -800 ml Output Urine Total 700 ml 800 ml # Voids 1 3 General Appearance: WD/WN HEENT: normocephalic, anicteric Respiratory/Chest: lungs clear, no respiratory distress Cardiovascular: normal peripheral pulses, normal rate Abdomen: normal bowel sounds, no organomegaly Microbiology Date/Time Source Procedure Growth Status 03/24/19 22:42 Nasal Nares MRSA Culture - Final NO METHICILLIN RESISTANT STAPH AUREUS... Complete 03/24/19 22:42 Rectum - Final NO CARBAPENEM-RESISTANT ENTEROBACTERI... Complete 03/24/19 22:42 Rectum VRE Culture - Final NO VANCOMYCIN RESISTANT ENTEROCOCCUS ... Complete Laboratory Tests 03/27/19 06:10: White Blood Count 5.9, Red Blood Count 4.02L, Hemoglobin 12.1L, Hematocrit 36.2L , Mean Corpuscular Volume 90, Mean Corpuscular Hemoglobin 30.1, Mean Corpuscular Hemoglobin Concent 33.4, Red Cell Distribution Width 15.3H, Platelet Count 226, Mean Platelet Volume 6.0L, Neutrophils (%) (Auto) 56.1, Lymphocytes (%) (Auto) 23.9, Monocytes (%) (Auto) 13.4H, Eosinophils (%) (Auto) 5.0H, Basophils (%) (Auto) 1.7, Prothrombin Time 11.9H, Prothromb Time International Ratio 1.1, Sodium Level 139, Potassium Level 3.8, Chloride Level 103, Carbon Dioxide Level 27, Anion Gap 9, Blood Urea Nitrogen 23H, Creatinine 1.3, Estimat Glomerular Filtration Rate > 60, Glucose Level 105, Calcium Level 8.5, Total Bilirubin 0.6, Aspartate Amino Transf (AST/SGOT) 37, Alanine Aminotransferase (ALT/SGPT) 105H, Alkaline Phosphatase 105, Pro-B-Type Natriuretic Peptide 2158H, Total Protein 6.5, Albumin 3.0L, Globulin 3.5, Albumin/Globulin Ratio 0.9L Current Medications Medications (Trade) Dose Ordered Sig/Rebeca Route PRN Reason Start Time Stop Time Status Last Admin Dose Admin Barium Sulfate (Readi-Cat 2) 450 ml NOW PRN ORAL Radiology Procedure 03/26/19 12:15 03/28/19 12:02 Carvedilol (Coreg) 25 mg EVERY 12 HOURS ORAL 03/25/19 09:00 04/24/19 08:59 03/27/19 09:33 Enoxaparin Sodium (Lovenox) 100 mg EVERY 12 HOURS SUBQ 03/26/19 21:00 04/25/19 20:59 03/27/19 09:37 Lisinopril (PriniviL) 20 mg BID ORAL 03/26/19 09:00 04/25/19 08:59 03/27/19 09:34 Ondansetron HCl (Zofran) 4 mg Q8H PRN IVP Nausea & Vomiting 03/25/19 16:15 04/24/19 16:14 03/26/19 06:20 Pantoprazole (Protonix) 40 mg DAILY ORAL 03/26/19 09:00 04/25/19 08:59 03/27/19 09:33 Warfarin Sodium (Coumadin per pharmacy) 1 ea DAILY PRN MISC Per rx protocol 03/25/19 20:45 04/24/19 20:44 Warfarin Sodium (Coumadin) 10 mg COUMADIN ONCE ORAL 03/27/19 17:00 03/27/19 17:01 Tito Echeverria MD Mar 27, 2019 11:43
[2019-03-27 12:03] VITALS: BP 136/92
--- NOTE | 2019-03-27 12:12 | GI Progress Note ---
Assessment/Plan Problems: (1) Constipation ICD Codes: K59.00 - Constipation, unspecified SNOMED: 43254189 (2) Abdominal pain ICD Codes: R10.9 - Unspecified abdominal pain SNOMED: 99768222 Status: stable Status Narrative Discussed with Dr. Thayer. Assessment/Plan History of recent colonoscopy approximately 5 months ago with unknown findings CT reviewed >> retained colonic stool, No acute abdominal or pelvic process otherwise advance diet bowel regime pain mgmt Follow-up cardiology recommendations We will send for occult blood stool to evaluate for any GI bleed Trend LFTs Noted that the patient is currently on Coumadin PPI We will follow on a daily basis with any additional recommendations The patient was seen and examined at bedside and all new and available data was reviewed in the patients chart. I agree with the above findings, impression and plan. (Patient seen earlier today. Signature stamp does not reflect patient encounter time.). - Houston Thayer MD Subjective Subjective still has left lower quadrant abdominal pain Objective Last 24 Hour Vital Signs Date Time Temp Pulse Resp B/P (MAP) Pulse Ox O2 Delivery O2 Flow Rate FiO2 03/27/19 12:03 98.6 80 18 136/92 (107) 100 03/27/19 09:34 114/84 03/27/19 09:33 87 114/84 03/27/19 09:00 Room Air 03/27/19 08:00 96.8 87 18 114/84 (94) 97 03/27/19 07:49 78 03/27/19 04:00 80 03/27/19 04:00 98.6 81 20 110/77 (88) 98 03/27/19 00:00 98.2 77 20 107/80 (89) 95 03/27/19 00:00 95 03/26/19 21:09 85 116/79 03/26/19 21:00 Room Air 03/26/19 20:00 79 03/26/19 20:00 98.2 85 20 116/79 (91) 99 03/26/19 17:21 138/82 03/26/19 16:00 78 03/26/19 15:56 97.7 80 19 138/82 (100) 100 Intake and Output 03/26/19 03/27/19 19:00 07:00 Output Total 700 ml 800 ml Balance -700 ml -800 ml Output Urine Total 700 ml 800 ml # Voids 1 3 Laboratory Tests Test 03/27/19 06:10 White Blood Count 5.9 K/UL (4.8-10.8) Red Blood Count 4.02 M/UL (4.70-6.10) L Hemoglobin 12.1 G/DL (14.2-18.0) L Hematocrit 36.2 % (42.0-52.0) L Mean Corpuscular Volume 90 FL (80-99) Mean Corpuscular Hemoglobin 30.1 PG (27.0-31.0) Mean Corpuscular Hemoglobin Concent 33.4 G/DL (32.0-36.0) Red Cell Distribution Width 15.3 % (11.6-14.8) H Platelet Count 226 K/UL (150-450) Mean Platelet Volume 6.0 FL (6.5-10.1) L Neutrophils (%) (Auto) 56.1 % (45.0-75.0) Lymphocytes (%) (Auto) 23.9 % (20.0-45.0) Monocytes (%) (Auto) 13.4 % (1.0-10.0) H Eosinophils (%) (Auto) 5.0 % (0.0-3.0) H Basophils (%) (Auto) 1.7 % (0.0-2.0) Prothrombin Time 11.9 SEC (9.30-11.50) H Prothromb Time International Ratio 1.1 (0.9-1.1) Sodium Level 139 MMOL/L (136-145) Potassium Level 3.8 MMOL/L (3.5-5.1) Chloride Level 103 MMOL/L (98-107) Carbon Dioxide Level 27 MMOL/L (21-32) Anion Gap 9 mmol/L (5-15) Blood Urea Nitrogen 23 mg/dL (7-18) H Creatinine 1.3 MG/DL (0.55-1.30) Estimat Glomerular Filtration Rate > 60 mL/min (>60) Glucose Level 105 MG/DL (74-106) Calcium Level 8.5 MG/DL (8.5-10.1) Total Bilirubin 0.6 MG/DL (0.2-1.0) Aspartate Amino Transf (AST/SGOT) 37 U/L (15-37) Alanine Aminotransferase (ALT/SGPT) 105 U/L (12-78) H Alkaline Phosphatase 105 U/L (46-116) Pro-B-Type Natriuretic Peptide 2158 pg/mL (0-125) H Total Protein 6.5 G/DL (6.4-8.2) Albumin 3.0 G/DL (3.4-5.0) L Globulin 3.5 g/dL Albumin/Globulin Ratio 0.9 (1.0-2.7) L Height (Feet): 6 Height (Inches): 1.00 Weight (Pounds): 219 General Appearance: no apparent distress Cardiovascular: normal rate Respiratory/Chest: normal breath sounds, no respiratory distress Abdominal Exam: normal bowel sounds, non tender, soft Extremities: non-tender Chad Hopson NP Mar 27, 2019 12:12
[2019-03-27] MEDS: Docusate 100mg cap ORAL SCH ×2 (12:24→17:22)
--- NOTE | 2019-03-27 14:54 | NUR ---
CASE MANAGEMENT:REVIEW 03/27/19 SI: AC/CHR CHF. LV THROMBUS 98.6 80 18 136/92 100% ON RA BUN+23 IS: COUMADIN 10MG PO X1 LOVENOX SQ Q12 PROTONIX PO QD LISINOPRIL PO BID COREG PO Q12 : TELEMETRY STATUS DCP: FROM HOME
[2019-03-27 16:00] VITALS: BP 152/75
[2019-03-27] MEDS ORDERED: Warfarin Sodium 10mg ORAL ONE (17:00)
--- NOTE | 2019-03-27 19:21 | NUR ---
HAND-OFF: Report given to LUL HERNANDEZ. Pt is awake and stable.
[2019-03-27 20:00] VITALS: BP 112/74
--- NOTE | 2019-03-27 20:00 | NUR ---
NURSE NOTES: RECEIVED PATIENT LYING IN BED, AWAKE, ALERT/ORIENTED X4, VERBALLY RESPONSIVE, DENIES PAIN. NO SIGNS AND SYMPTOMS OF ACUTE CARDIO RESPIRATORY DISTRESS, SOB ON EXERTION, DENIES DIZZINESS/CHEST PAIN, EDEMA SUBSIDING. BOWEL REGIMEN FOR CONSTIPATION, NO BM SINCE 03/24/19, URINAL AT BEDSIDE. IV INTACT TO LEFT WRIST/GAUGE 20/SL, NO SWELLING NOTED, NO COMPLAINTS OF PAIN TO SITE. SIDE RAILS UP X3/BED IN LOWEST POSITION FOR SAFETY. FREQUENT ROUNDING FOR SAFETY/NEEDS. ENCOURAGED PATIENT TO UTILIZE CALL LIGHT FOR ASSISTANCE, VERBALIZED UNDERSTANDING. CONTINUE WITH CURRENT PLAN OF CARE. NAD.
[2019-03-27] MEDS: Miralax 17gm pkt ORAL SCH (21:14)
[2019-03-28] VITALS: BP 119/96
[2019-03-28 04:00] VITALS: BP 102/77
--- NOTE | 2019-03-28 06:13 | NUR ---
NURSE NOTES: RESTED WELL, NO SIGNIFICANT CHANGE OF CONDITION NOTED THROUGHOUT THE NIGHT. SAFETY MAINTAINED. NAD.
--- NOTE | 2019-03-28 07:30 | NUR ---
HAND-OFF: Report given to DAVID DEMPSEY.
--- NOTE | 2019-03-28 07:44 | NUR ---
NURSE NOTES: Received report from DAVID Choi. Patient in bed resting, no active s/s cardiac, respiratory distress noticed at this time. Patient AOx4, on room air. IV on left wrist 20G, asymptomatic, patent, intact. Patient denied diarrhea, endorsed patient c/o nausea last night. Bed in lowest position, side rails upx2, call light within reach. Will continue to monitor.
[2019-03-28 07:54] LABS: BASOPHILS % (AUTO) 1.2 % (0.0-2.0); EOSINOPHILS % (AUTO) 3.3 % (0.0-3.0); HEMATOCRIT 35.1 % (42.0-52.0); HEMOGLOBIN 11.7 G/DL (14.2-18.0); LYMPHOCYTES % (AUTO) 26.6 % (20.0-45.0); MEAN CORPUSCULAR VOLUME 90 FL (80-99); MONOCYTES % (AUTO) 12.2 % (1.0-10.0); NEUTROPHILS % (AUTO) 56.7 % (45.0-75.0); PLATELET COUNT 218 K/UL (150-450); RED CELL DISTRIBUTION WIDTH 15.7 % (11.6-14.8); WHITE BLOOD COUNT 5.4 K/UL (4.8-10.8)
[2019-03-28 08:00] VITALS: BP 122/85
[2019-03-28 08:12] LABS: INR 1.1 (0.9-1.1)
[2019-03-28 08:18] LABS: ANION GAP 8 mmol/L (5-15); BLOOD UREA NITROGEN 21 mg/dL (7-18); CALCIUM 8.7 MG/DL (8.5-10.1); CARBON DIOXIDE 27 MMOL/L (21-32); CHLORIDE 105 MMOL/L (98-107); CREATININE 1.1 MG/DL (0.55-1.30); POTASSIUM 3.9 MMOL/L (3.5-5.1); SODIUM 140 MMOL/L (136-145)
[2019-03-28] MEDS: Lisinopril 20mg tab ORAL SCH ×2 (08:26→17:08)
[2019-03-28] MEDS: Carvedilol 25mg Tab ORAL SCH ×2 (08:27→21:09)
[2019-03-28] MEDS: Docusate 100mg cap ORAL SCH ×3 (08:27→17:07)
[2019-03-28] MEDS: Enoxaparin 100mg Inj SUBQ SCH ×2 (08:27→21:06)
[2019-03-28 12:00] VITALS: BP 122/88
--- NOTE | 2019-03-28 14:42 | Cardiology Progress Note ---
Assessment/Plan Problem List: (1) Left ventricular thrombus (2) CHF (congestive heart failure) (3) Left ventricular ejection fraction of 21% to 30% (4) Acute on chronic systolic congestive heart failure Status: stable, progressing Status Narrative Acute on chronic systolic HF, nonischemic cm LV thrombus hx of methamphetamine use NIKO - improving Assessment/Plan continue coreg, lisinopril - Would consider change of lisinopril to entresto if available Continue warfarin/ heparin for LV thrombus Over the longer term, pt would be a candidate for ICD and advanced HF therapies , LVAD, transplant, [facility], and [facility]. Subjective ROS Limited/Unobtainable: No Subjective Cardiology for Dr. Yoder Pt dyspneic w/ walking in room. Objective Last 24 Hour Vital Signs Date Time Temp Pulse Resp B/P (MAP) Pulse Ox O2 Delivery O2 Flow Rate FiO2 03/28/19 12:00 85 03/28/19 12:00 97.0 85 18 122/88 (99) 96 03/28/19 09:00 Room Air 03/28/19 08:27 88 122/85 03/28/19 08:26 122/85 03/28/19 08:00 97.7 88 18 122/85 (97) 99 03/28/19 08:00 90 03/28/19 06:52 78 03/28/19 04:00 97.7 81 18 102/77 (85) 98 03/28/19 00:00 82 03/28/19 00:00 96.7 82 20 119/96 (104) 100 03/27/19 21:14 92 135/89 03/27/19 21:00 Room Air 03/27/19 20:00 82 03/27/19 20:00 97.8 86 18 112/74 (87) 98 03/27/19 17:22 152/75 03/27/19 16:00 96.7 71 18 152/75 (100) 98 03/27/19 15:45 80 General Appearance: WD/WN, no apparent distress, alert EENT: PERRL/EOMI Neck: no JVD Rhythm: NSR Cardiovascular: normal rate, regular rhythm, gallop/S3 Respiratory/Chest: other - few R base crackles Abdomen: soft, other - mild diffuse tenderness Extremities: other - 1+ pedal edema bilat Intake and Output 03/27/19 03/28/19 19:00 07:00 Intake Total 280 ml 360 ml Output Total 1400 ml 1100 ml Balance -1120 ml -740 ml Intake Oral 280 ml 360 ml Output Urine Total 1400 ml 1100 ml # Voids 3 Laboratory Tests Test 03/28/19 05:55 White Blood Count 5.4 K/UL (4.8-10.8) Red Blood Count 3.90 M/UL (4.70-6.10) L Hemoglobin 11.7 G/DL (14.2-18.0) L Hematocrit 35.1 % (42.0-52.0) L Mean Corpuscular Volume 90 FL (80-99) Mean Corpuscular Hemoglobin 29.9 PG (27.0-31.0) Mean Corpuscular Hemoglobin Concent 33.2 G/DL (32.0-36.0) Red Cell Distribution Width 15.7 % (11.6-14.8) H Platelet Count 218 K/UL (150-450) Mean Platelet Volume 6.1 FL (6.5-10.1) L Neutrophils (%) (Auto) 56.7 % (45.0-75.0) Lymphocytes (%) (Auto) 26.6 % (20.0-45.0) Monocytes (%) (Auto) 12.2 % (1.0-10.0) H Eosinophils (%) (Auto) 3.3 % (0.0-3.0) H Basophils (%) (Auto) 1.2 % (0.0-2.0) Prothrombin Time 12.0 SEC (9.30-11.50) H Prothromb Time International Ratio 1.1 (0.9-1.1) Sodium Level 140 MMOL/L (136-145) Potassium Level 3.9 MMOL/L (3.5-5.1) Chloride Level 105 MMOL/L (98-107) Carbon Dioxide Level 27 MMOL/L (21-32) Anion Gap 8 mmol/L (5-15) Blood Urea Nitrogen 21 mg/dL (7-18) H Creatinine 1.1 MG/DL (0.55-1.30) Estimat Glomerular Filtration Rate > 60 mL/min (>60) Glucose Level 99 MG/DL (74-106) Calcium Level 8.7 MG/DL (8.5-10.1) Dasha Rivas MD Mar 28, 2019 14:42
--- NOTE | 2019-03-28 15:27 | General Progress Note ---
Assessment/Plan Problem List: (1) Acute on chronic systolic congestive heart failure ICD Codes: I50.23 - Acute on chronic systolic (congestive) heart failure SNOMED: 576218967, 148965210 (2) Pulmonary hypertension ICD Codes: I27.20 - Pulmonary hypertension, unspecified SNOMED: 18208811 (3) Hypomagnesemia ICD Codes: E83.42 - Hypomagnesemia SNOMED: 295728603 (4) CHF (congestive heart failure) ICD Codes: I50.9 - Heart failure, unspecified SNOMED: 37352691 Qualifiers: Qualified Codes: I50.9 - Heart failure, unspecified (5) Left ventricular ejection fraction of 21% to 30% ICD Codes: R93.1 - Abnormal findings on diagnostic imaging of heart and coronary circulation SNOMED: 69770037, 495340096 Status: stable, progressing Assessment/Plan: resp insuff chf check lytes no acute events pulmonary htn Subjective ROS Limited/Unobtainable: Yes Allergies: Coded Allergies: IODINE (Verified Allergy, Unknown, 01/24/19) Uncoded Allergies: Shell fish (Allergy, Severe, 01/25/19) Objective Last 24 Hour Vital Signs Date Time Temp Pulse Resp B/P (MAP) Pulse Ox O2 Delivery O2 Flow Rate FiO2 03/28/19 12:00 85 03/28/19 12:00 97.0 85 18 122/88 (99) 96 03/28/19 09:00 Room Air 03/28/19 08:27 88 122/85 03/28/19 08:26 122/85 03/28/19 08:00 97.7 88 18 122/85 (97) 99 03/28/19 08:00 90 03/28/19 06:52 78 03/28/19 04:00 97.7 81 18 102/77 (85) 98 03/28/19 00:00 82 03/28/19 00:00 96.7 82 20 119/96 (104) 100 03/27/19 21:14 92 135/89 03/27/19 21:00 Room Air 03/27/19 20:00 82 03/27/19 20:00 97.8 86 18 112/74 (87) 98 03/27/19 17:22 152/75 03/27/19 16:00 96.7 71 18 152/75 (100) 98 03/27/19 15:45 80 Intake and Output 03/27/19 03/28/19 19:00 07:00 Intake Total 280 ml 360 ml Output Total 1400 ml 1100 ml Balance -1120 ml -740 ml Intake Oral 280 ml 360 ml Output Urine Total 1400 ml 1100 ml # Voids 3 Laboratory Tests 03/28/19 05:55: White Blood Count 5.4, Red Blood Count 3.90L, Hemoglobin 11.7L, Hematocrit 35.1L , Mean Corpuscular Volume 90, Mean Corpuscular Hemoglobin 29.9, Mean Corpuscular Hemoglobin Concent 33.2, Red Cell Distribution Width 15.7H, Platelet Count 218, Mean Platelet Volume 6.1L, Neutrophils (%) (Auto) 56.7, Lymphocytes (%) (Auto) 26.6, Monocytes (%) (Auto) 12.2H, Eosinophils (%) (Auto) 3.3H, Basophils (%) (Auto) 1.2, Prothrombin Time 12.0H, Prothromb Time International Ratio 1.1, Sodium Level 140, Potassium Level 3.9, Chloride Level 105, Carbon Dioxide Level 27, Anion Gap 8, Blood Urea Nitrogen 21H, Creatinine 1.1, Estimat Glomerular Filtration Rate > 60, Glucose Level 99, Calcium Level 8.7 Height (Feet): 6 Height (Inches): 1.00 Weight (Pounds): 219 Cardiovascular: regular rhythm Respiratory/Chest: rhonchi - bilaterally Lucinda Elliott MD Mar 28, 2019 15:27
--- NOTE | 2019-03-28 15:44 | NUR ---
NURSE NOTES: Paged Dr. Thayer regarding patient c/o stomach pain. Per MD call Dr. Barfield. Paged Dr. Barfield, per MD will come to see the patient.
[2019-03-28 16:00] VITALS: BP 117/77
--- NOTE | 2019-03-28 16:28 | General Progress Note ---
Assessment/Plan Status: stable, progressing Assessment/Plan: Assessment - chronic abd pain - constipation - CHF - anemia Recommendations - laxative - PRN Morphine - check OB - will prob need GI endoscopy Subjective Allergies: Coded Allergies: IODINE (Verified Allergy, Unknown, 01/24/19) Uncoded Allergies: Shell fish (Allergy, Severe, 01/25/19) Subjective c/o L sided abd pain x 8 months wants Rx says morphine helped yesterday Objective Last 24 Hour Vital Signs Date Time Temp Pulse Resp B/P (MAP) Pulse Ox O2 Delivery O2 Flow Rate FiO2 03/28/19 16:00 97.3 80 18 117/77 (90) 99 03/28/19 12:00 85 03/28/19 12:00 97.0 85 18 122/88 (99) 96 03/28/19 09:00 Room Air 03/28/19 08:27 88 122/85 03/28/19 08:26 122/85 03/28/19 08:00 97.7 88 18 122/85 (97) 99 03/28/19 08:00 90 03/28/19 06:52 78 03/28/19 04:00 97.7 81 18 102/77 (85) 98 03/28/19 00:00 82 03/28/19 00:00 96.7 82 20 119/96 (104) 100 03/27/19 21:14 92 135/89 03/27/19 21:00 Room Air 03/27/19 20:00 82 03/27/19 20:00 97.8 86 18 112/74 (87) 98 03/27/19 17:22 152/75 Intake and Output 03/27/19 03/28/19 19:00 07:00 Intake Total 280 ml 360 ml Output Total 1400 ml 1100 ml Balance -1120 ml -740 ml Intake Oral 280 ml 360 ml Output Urine Total 1400 ml 1100 ml # Voids 3 Laboratory Tests 03/28/19 05:55: White Blood Count 5.4, Red Blood Count 3.90L, Hemoglobin 11.7L, Hematocrit 35.1L , Mean Corpuscular Volume 90, Mean Corpuscular Hemoglobin 29.9, Mean Corpuscular Hemoglobin Concent 33.2, Red Cell Distribution Width 15.7H, Platelet Count 218, Mean Platelet Volume 6.1L, Neutrophils (%) (Auto) 56.7, Lymphocytes (%) (Auto) 26.6, Monocytes (%) (Auto) 12.2H, Eosinophils (%) (Auto) 3.3H, Basophils (%) (Auto) 1.2, Prothrombin Time 12.0H, Prothromb Time International Ratio 1.1, Sodium Level 140, Potassium Level 3.9, Chloride Level 105, Carbon Dioxide Level 27, Anion Gap 8, Blood Urea Nitrogen 21H, Creatinine 1.1, Estimat Glomerular Filtration Rate > 60, Glucose Level 99, Calcium Level 8.7 Height (Feet): 6 Height (Inches): 1.00 Weight (Pounds): 219 Objective WDWN NCAT supple CTA RR abd soft , ND trace edema Carmen Barfield MD Mar 28, 2019 16:28
[2019-03-28] MEDS ORDERED: Sorbitol Solution UD 30ml ORAL SCH (16:30)
[2019-03-28] MEDS ORDERED: Warfarin Sodium 5mg ORAL ONE (17:00)
[2019-03-28] MEDS ORDERED: Warfarin Sodium 10mg ORAL ONE (17:00)
[2019-03-28] MEDS: Morphine Sulfate 2mg/ml Inj(IV/IM USE ONLY) IVP PRN (17:07)
--- NOTE | 2019-03-28 19:10 | NUR ---
HAND-OFF: Report given to DAVID Choi. Endorsed care of plan.
--- NOTE | 2019-03-28 19:37 | NUR ---
NURSE NOTES: RECEIVED PATIENT LYING IN BED, AWAKE, ALERT/ORIENTED X4, DENIES PAIN. 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 IV INTACT TO LEFT HAND/GAUGE 20, NO SWELLING NOTED. NO SIGNS AND SYMPTOMS OF ACUTE CARDIO RESPIRATORY DISTRESS, SHORTNESS OF BREATH ON EXERTION, PERIPHERAL EDEMA SUBSIDING WELL. DENIES ABDOMINAL PAIN, LARGE BOWEL MOVEMENT TODAY, DENIES DIARRHEA. SIDE RAILS UP X3, BED IN LOWEST POSITION FOR SAFETY. ENCOURAGED PATIENT TO UTILIZE CALL LIGHT FOR ASSISTANCE, VERBALIZED UNDERSTANDING. NAD.
[2019-03-28 20:00] VITALS: BP 127/94
[2019-03-28] MEDS: Miralax 17gm pkt ORAL SCH (21:00)
[2019-03-29] VITALS: BP 129/92
--- NOTE | 2019-03-29 01:17 | NUR ---
NURSE NOTES: RESTING WELL ON ROUNDS, NO SIGNS AND SYMPTOMS OF DISTRESS. WILL CONTINUE TO MONITOR. CALL LIGHT WITHIN REACH.
[2019-03-29 04:00] VITALS: BP 137/87
--- NOTE | 2019-03-29 06:00 | NUR ---
NURSE NOTES: RESTED WELL, NO SIGNIFICANT CHANGE OF CONDITION NOTED THROUGHOUT THE NIGHT. SAFETY MAINTAINED. NAD,.
[2019-03-29] MEDS: Morphine Sulfate 2mg/ml Inj(IV/IM USE ONLY) IVP PRN ×2 (06:20→23:06)
--- NOTE | 2019-03-29 07:19 | NUR ---
NURSE NOTES: Received report from DAVID Choi. Patient in bed resting, no active s/s cardiac, respiratory distress noticed at this time. Patient grimacing from abdominal pain, c/o 5/10 abd pain. IV on left wrist 20G, asymptomatic, patent, intact. Bed in lowest position, side rails upx2, call light within reach. Will continue to monitor.
[2019-03-29 08:00] VITALS: BP 128/100
[2019-03-29] MEDS: Docusate 100mg cap ORAL SCH ×3 (08:09→17:06)
[2019-03-29] MEDS: Carvedilol 25mg Tab ORAL SCH ×2 (08:10→20:29)
[2019-03-29] MEDS: Lisinopril 20mg tab ORAL SCH ×2 (08:10→17:07)
[2019-03-29] MEDS: Enoxaparin 100mg Inj SUBQ SCH ×2 (08:15→20:32)
[2019-03-29 08:16] LABS: INR 1.2 (0.9-1.1)
--- NOTE | 2019-03-29 10:36 | General Progress Note ---
Assessment/Plan Status: stable, progressing Assessment/Plan: Assessment - chronic abd pain - constipation - CHF - anemia Recommendations - laxative - PRN Morphine - check OB - will consider GI endoscopy Subjective Allergies: Coded Allergies: IODINE (Verified Allergy, Unknown, 01/24/19) Uncoded Allergies: Shell fish (Allergy, Severe, 01/25/19) Subjective better today tolerating PO (+) BM Objective Last 24 Hour Vital Signs Date Time Temp Pulse Resp B/P (MAP) Pulse Ox O2 Delivery O2 Flow Rate FiO2 03/29/19 09:00 Room Air 03/29/19 08:10 128/100 03/29/19 08:10 82 128/100 03/29/19 08:00 94 03/29/19 08:00 97.7 82 19 128/100 (109) 99 03/29/19 06:50 97.0 03/29/19 04:00 82 03/29/19 04:00 97.6 90 19 137/87 (104) 96 03/29/19 00:00 82 03/29/19 00:00 97.0 88 20 129/92 (104) 100 03/28/19 21:09 90 130/93 03/28/19 21:00 Room Air 03/28/19 20:55 95 03/28/19 20:00 96.6 90 19 127/94 (105) 100 03/28/19 17:08 117/77 03/28/19 16:00 97.3 80 18 117/77 (90) 99 03/28/19 16:00 92 03/28/19 12:00 85 03/28/19 12:00 97.0 85 18 122/88 (99) 96 Intake and Output 03/28/19 03/29/19 19:00 07:00 Intake Total 840 ml 480 ml Output Total 1200 ml 1200 ml Balance -360 ml -720 ml Intake Oral 840 ml 480 ml Output Urine Total 1200 ml 1200 ml Laboratory Tests 03/29/19 06:02: Prothrombin Time 13.1H, Prothromb Time International Ratio 1.2H Height (Feet): 6 Height (Inches): 1.00 Weight (Pounds): 219 Objective WDWN NCAT supple CTA RR abd soft , ND trace edema Carmen Barfield MD Mar 29, 2019 10:36
[2019-03-29 12:00] VITALS: BP 124/86
[2019-03-29 16:00] VITALS: BP 127/96
[2019-03-29] MEDS ORDERED: Warfarin Sodium 4mg PO ONE (17:00)
--- NOTE | 2019-03-29 19:21 | NUR ---
HAND-OFF: Report given to DAVID Choi. Endorsed plan of care.
--- NOTE | 2019-03-29 19:30 | NUR ---
NURSE NOTES: RECEIVED PATIENT LYING IN BED, AWAKE, ALERT/ORIENTED X4, DENIES PAIN. IV INTACT TO LEFT WRIST GAUGE 20-SL. NO SIGNS AND SYMPTOMS OF ACUTE CARDIO RESPIRATORY DISTRESS/SHORTNESS OF BREATH, DENIES CHEST PAIN, TRACE EDEMA NOTED. 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 ABDOMEN SOFT/NON DISTENDED/NON TENDER, AUDIBLE BOWEL SOUNDS, DENIES N/V/D. SIDE RAILS UP X3/BED IN LOWEST POSITION FOR SAFETY, ENCOURAGED PATIENT TO UTILIZE CALL LIGHT FOR ASSISTANCE, VERBALIZED UNDERSTANDING. NAD.
--- NOTE | 2019-03-29 19:31 | Cardiology Progress Note ---
Assessment/Plan Problem List: (1) Left ventricular thrombus (2) CHF (congestive heart failure) (3) Left ventricular ejection fraction of 21% to 30% (4) Acute on chronic systolic congestive heart failure Status: stable, unchanged Status Narrative Acute on chronic systolic HF, nonischemic cm LV thrombus hx of methamphetamine use NIKO - improving Assessment/Plan continue coreg, lisinopril - Would consider change of lisinopril to entresto if available. Resume diuretics Continue warfarin/ heparin for LV thrombus - INR subtherapeutic Over the longer term, pt would be a candidate for ICD and advanced HF therapies , LVAD, transplant, [facility]. Subjective Subjective Cardiology for Dr. Yoder Pt with no new symptoms Objective Last 24 Hour Vital Signs Date Time Temp Pulse Resp B/P (MAP) Pulse Ox O2 Delivery O2 Flow Rate FiO2 03/29/19 17:07 127/96 03/29/19 16:00 94 03/29/19 16:00 97.3 100 19 127/96 (106) 99 03/29/19 12:00 87 03/29/19 12:00 97.0 82 19 124/86 (99) 98 03/29/19 09:00 Room Air 03/29/19 08:10 128/100 03/29/19 08:10 82 128/100 03/29/19 08:00 94 03/29/19 08:00 97.7 82 19 128/100 (109) 99 03/29/19 06:50 97.0 03/29/19 04:00 82 03/29/19 04:00 97.6 90 19 137/87 (104) 96 03/29/19 00:00 82 03/29/19 00:00 97.0 88 20 129/92 (104) 100 03/28/19 21:09 90 130/93 03/28/19 21:00 Room Air 03/28/19 20:55 95 03/28/19 20:00 96.6 90 19 127/94 (105) 100 General Appearance: WD/WN, no apparent distress, alert EENT: PERRL/EOMI Neck: no JVD Rhythm: NSR Cardiovascular: normal rate, regular rhythm, gallop/S3 Respiratory/Chest: other - few basilar crackles Abdomen: normal bowel sounds, non tender, soft Extremities: no swelling Intake and Output 03/28/19 03/29/19 19:00 07:00 Intake Total 840 ml 480 ml Output Total 1200 ml 1200 ml Balance -360 ml -720 ml Intake Oral 840 ml 480 ml Output Urine Total 1200 ml 1200 ml Laboratory Tests Test 03/29/19 06:02 Prothrombin Time 13.1 SEC (9.30-11.50) H Prothromb Time International Ratio 1.2 (0.9-1.1) H Dasha Rivas MD Mar 29, 2019 19:31
[2019-03-29 20:00] VITALS: BP 136/91
[2019-03-29] MEDS: Miralax 17gm pkt ORAL SCH (21:00)
--- NOTE | 2019-03-29 21:00 | NUR ---
NURSE NOTES: REFUSED MIRALAX, PATIENT STATED THAT HE HAD TWO (2) BOWEL MOVEMENTS TODAY.
--- NOTE | 2019-03-29 22:05 | General Progress Note ---
Assessment/Plan Problem List: (1) Acute on chronic systolic congestive heart failure ICD Codes: I50.23 - Acute on chronic systolic (congestive) heart failure SNOMED: 508742947, 802940984 (2) Pulmonary hypertension ICD Codes: I27.20 - Pulmonary hypertension, unspecified SNOMED: 87927878 (3) Hypomagnesemia ICD Codes: E83.42 - Hypomagnesemia SNOMED: 632457862 (4) CHF (congestive heart failure) ICD Codes: I50.9 - Heart failure, unspecified SNOMED: 37219818 Qualifiers: Qualified Codes: I50.9 - Heart failure, unspecified (5) Left ventricular ejection fraction of 21% to 30% ICD Codes: R93.1 - Abnormal findings on diagnostic imaging of heart and coronary circulation SNOMED: 16629489, 345210088 Status: stable, progressing, unchanged Assessment/Plan: resp insuff chf no wheezing not hypoxic afebrile pulmonary htn Subjective ROS Limited/Unobtainable: Yes Allergies: Coded Allergies: IODINE (Verified Allergy, Unknown, 01/24/19) Uncoded Allergies: Shell fish (Allergy, Severe, 01/25/19) Objective Last 24 Hour Vital Signs Date Time Temp Pulse Resp B/P (MAP) Pulse Ox O2 Delivery O2 Flow Rate FiO2 03/29/19 20:29 89 136/91 03/29/19 20:00 97.0 89 18 136/91 (106) 97 03/29/19 20:00 88 03/29/19 17:07 127/96 03/29/19 16:00 94 03/29/19 16:00 97.3 100 19 127/96 (106) 99 03/29/19 12:00 87 03/29/19 12:00 97.0 82 19 124/86 (99) 98 03/29/19 09:00 Room Air 03/29/19 08:10 128/100 03/29/19 08:10 82 128/100 03/29/19 08:00 94 03/29/19 08:00 97.7 82 19 128/100 (109) 99 03/29/19 06:50 97.0 03/29/19 04:00 82 03/29/19 04:00 97.6 90 19 137/87 (104) 96 03/29/19 00:00 82 03/29/19 00:00 97.0 88 20 129/92 (104) 100 Intake and Output 03/28/19 03/29/19 19:00 07:00 Intake Total 840 ml 480 ml Output Total 1200 ml 1200 ml Balance -360 ml -720 ml Intake Oral 840 ml 480 ml Output Urine Total 1200 ml 1200 ml Laboratory Tests 03/29/19 06:02: Prothrombin Time 13.1H, Prothromb Time International Ratio 1.2H Height (Feet): 6 Height (Inches): 1.00 Weight (Pounds): 219 Cardiovascular: normal rate Respiratory/Chest: lungs clear Abdomen: soft Lucinda Elliott MD Mar 29, 2019 22:05
[2019-03-30] VITALS: BP 132/94
[2019-03-30] MEDS: Morphine Sulfate 2mg/ml Inj(IV/IM USE ONLY) IVP PRN ×3 (03:19→21:44)
[2019-03-30 04:00] VITALS: BP 141/92
--- NOTE | 2019-03-30 06:29 | NUR ---
NURSE NOTES: RESTED WELL, NO SIGNIFICANT CHANGE OF CONDITION NOTED THROUGHOUT THE NIGHT. SAFETY MAINTAINED. NAD.
--- NOTE | 2019-03-30 07:25 | NUR ---
NURSE NOTES: Received report from DAVID Choi. Patient in bed resting, no active s/s cardiac, respiratory distress noticed at this time. Patient on room air, SR with HR 84. IV on right hand 20G, asymptomatic, patent, intact. Patient c/o abdominal pain /, denies chest pain at this time. Bed in lowest position, side rails upx2, call light within reach. Will continue to monitor.
--- NOTE | 2019-03-30 07:30 | NUR ---
HAND-OFF: Report given to DAVID DEMPSEY.
[2019-03-30 08:00] VITALS: BP 116/63
[2019-03-30 08:10] LABS: INR 1.4 (0.9-1.1)
[2019-03-30] MEDS: Furosemide 40mg tab ORAL SCH (08:56)
[2019-03-30] MEDS: Lisinopril 20mg tab ORAL SCH ×2 (08:56→17:13)
[2019-03-30] MEDS: Spironolactone 25mg tab ORAL SCH (08:56)
[2019-03-30] MEDS: Carvedilol 25mg Tab ORAL SCH ×2 (08:56→21:55)
[2019-03-30] MEDS: Enoxaparin 100mg Inj SUBQ SCH ×2 (08:57→22:04)
[2019-03-30] MEDS: Docusate 100mg cap ORAL SCH ×3 (08:58→17:13)
--- NOTE | 2019-03-30 10:37 | General Progress Note ---
Assessment/Plan Problem List: (1) Anemia ICD Codes: D64.9 - Anemia, unspecified SNOMED: 542108653 (2) Diverticulosis ICD Codes: K57.90 - Diverticulosis of intestine, part unspecified, without perforation or abscess without bleeding SNOMED: 495508299 (3) CHF (congestive heart failure) ICD Codes: I50.9 - Heart failure, unspecified SNOMED: 61912464 Qualifiers: Qualified Codes: I50.9 - Heart failure, unspecified (4) Pulmonary hypertension ICD Codes: I27.20 - Pulmonary hypertension, unspecified SNOMED: 66657614 (5) Constipation ICD Codes: K59.00 - Constipation, unspecified SNOMED: 05686226 (6) Abdominal pain ICD Codes: R10.9 - Unspecified abdominal pain SNOMED: 74527610 (7) Left ventricular ejection fraction of 21% to 30% ICD Codes: R93.1 - Abnormal findings on diagnostic imaging of heart and coronary circulation SNOMED: 36082356, 509580859 Status: stable, progressing, unchanged Assessment/Plan: + bm anemia work up zofran prn ppi needs EGd and colonoscopy if cleared by cardiology can be done as out patient will fu Subjective ROS Limited/Unobtainable: Yes Allergies: Coded Allergies: IODINE (Verified Allergy, Unknown, 01/24/19) Uncoded Allergies: Shell fish (Allergy, Severe, 01/25/19) Objective Last 24 Hour Vital Signs Date Time Temp Pulse Resp B/P (MAP) Pulse Ox O2 Delivery O2 Flow Rate FiO2 03/30/19 09:00 Room Air 03/30/19 08:56 116/63 03/30/19 08:56 86 116/63 03/30/19 08:00 89 03/30/19 08:00 97.8 86 20 116/63 (80) 98 03/30/19 04:00 97.5 82 20 141/92 (108) 97 03/30/19 04:00 84 03/30/19 03:49 97.5 03/30/19 00:00 97.7 85 20 132/94 (107) 97 03/30/19 00:00 92 03/29/19 23:36 97.0 03/29/19 21:00 Room Air 03/29/19 20:29 89 136/91 03/29/19 20:00 97.0 89 18 136/91 (106) 97 03/29/19 20:00 88 03/29/19 17:07 127/96 03/29/19 16:00 94 03/29/19 16:00 97.3 100 19 127/96 (106) 99 03/29/19 12:00 87 03/29/19 12:00 97.0 82 19 124/86 (99) 98 Intake and Output 03/29/19 03/30/19 19:00 07:00 Intake Total 250 ml 720 ml Output Total 600 ml 1200 ml Balance -350 ml -480 ml Intake Oral 250 ml 720 ml Output Urine Total 600 ml 1200 ml # Bowel Movements 1 Laboratory Tests 03/30/19 05:46: Prothrombin Time 14.8H, Prothromb Time International Ratio 1.4H Height (Feet): 6 Height (Inches): 1.00 Weight (Pounds): 219 General Appearance: alert EENT: normal ENT inspection Neck: supple Cardiovascular: normal rate Respiratory/Chest: decreased breath sounds Abdomen: soft, hypoactive bowel sounds, tender Extremities: non-tender Houston Thayer MD Mar 30, 2019 10:36
[2019-03-30 12:00] VITALS: BP 126/93
[2019-03-30 16:00] VITALS: BP 129/103
[2019-03-30] MEDS ORDERED: Warfarin Sodium 4mg PO SCH (17:00)
--- NOTE | 2019-03-30 19:23 | NUR ---
HAND-OFF: Report given to DAVID Choi. Endorsed plan of care.
--- NOTE | 2019-03-30 19:30 | NUR ---
NURSE NOTES: RECEIVED PATIENT LYING IN BED, AWAKE, ALERT/ORIENTED X4, VERBALLY RESPONSIVE, ABLE TO VERBALIZE NEEDS WITHOUT DIFFICULTY. IV INTACT RIGHT HAND/GAUGE 20, PATENT. NO SIGNS AND SYMPTOMS OF ACUTE CARDIO RESPIRATORY DISTRESS/SHORTNESS OF BREATH, DENIES CHEST PAIN, NOTED WITH TRACE EDEMA . ABDOMEN SOFT/NON DISTENDED/NON TENDER DURING ASSESSMENT, DENIES N/V/D, BATHROOM PRIVILEGES. SIDE RAILS UP X3/BED IN LOWEST POSITION FOR SAFETY, CALL LIGHT WITHIN REACH AT ALL TIMES. ENCOURAGED PATIENT TO UTILIZE CALL LIGHT FOR ASSISTANCE, VERBALIZED UNDERSTANDING. CONTINUE WITH CURRENT PLAN OF CARE. NAD.
[2019-03-30 20:00] VITALS: BP 138/95
--- NOTE | 2019-03-30 20:43 | General Progress Note ---
Assessment/Plan Problem List: (1) Acute on chronic systolic congestive heart failure ICD Codes: I50.23 - Acute on chronic systolic (congestive) heart failure SNOMED: 211671661, 627533846 (2) Pulmonary hypertension ICD Codes: I27.20 - Pulmonary hypertension, unspecified SNOMED: 84358686 (3) Hypomagnesemia ICD Codes: E83.42 - Hypomagnesemia SNOMED: 612594906 (4) CHF (congestive heart failure) ICD Codes: I50.9 - Heart failure, unspecified SNOMED: 22199843 Qualifiers: Qualified Codes: I50.9 - Heart failure, unspecified (5) Left ventricular ejection fraction of 21% to 30% ICD Codes: R93.1 - Abnormal findings on diagnostic imaging of heart and coronary circulation SNOMED: 29658532, 415080487 Status: stable, progressing, unchanged Assessment/Plan: resp insuff chf not hyopxic no fever lyte abnormality pulmonary htn Subjective ROS Limited/Unobtainable: Yes Allergies: Coded Allergies: IODINE (Verified Allergy, Unknown, 01/24/19) Uncoded Allergies: Shell fish (Allergy, Severe, 01/25/19) Objective Last 24 Hour Vital Signs Date Time Temp Pulse Resp B/P (MAP) Pulse Ox O2 Delivery O2 Flow Rate FiO2 03/30/19 17:13 129/103 03/30/19 16:00 97.0 106 20 129/103 (112) 100 03/30/19 16:00 89 03/30/19 12:00 97.5 81 20 126/93 (104) 98 03/30/19 12:00 88 03/30/19 09:00 Room Air 03/30/19 09:00 Room Air 03/30/19 08:56 116/63 03/30/19 08:56 86 116/63 03/30/19 08:00 89 03/30/19 08:00 97.8 86 20 116/63 (80) 98 03/30/19 04:00 97.5 82 20 141/92 (108) 97 03/30/19 04:00 84 03/30/19 03:49 97.5 03/30/19 00:00 97.7 85 20 132/94 (107) 97 03/30/19 00:00 92 03/29/19 23:36 97.0 03/29/19 21:00 Room Air Intake and Output 03/29/19 03/30/19 19:00 07:00 Intake Total 250 ml 720 ml Output Total 600 ml 1200 ml Balance -350 ml -480 ml Intake Oral 250 ml 720 ml Output Urine Total 600 ml 1200 ml # Bowel Movements 1 Laboratory Tests 03/30/19 05:46: Prothrombin Time 14.8H, Prothromb Time International Ratio 1.4H Height (Feet): 6 Height (Inches): 1.00 Weight (Pounds): 219 EENT: PERRL/EOMI Neck: supple Cardiovascular: normal rate Respiratory/Chest: lungs clear Abdomen: non tender Lucinda Elliott MD Mar 30, 2019 20:43
[2019-03-30] MEDS: Miralax 17gm pkt ORAL SCH (21:00)
[2019-03-31] VITALS: BP 106/63
[2019-03-31] MEDS: Morphine Sulfate 2mg/ml Inj(IV/IM USE ONLY) IVP PRN ×2 (02:24→11:50)
[2019-03-31 04:00] VITALS: BP 116/84
--- NOTE | 2019-03-31 06:39 | NUR ---
NURSE NOTES: RESTED WELL, NO SIGNIFICANT CHANGE OF CONDITION NOTED THROUGHOUT THE NIGHT. SAFETY MAINTAINED. NAD.
--- NOTE | 2019-03-31 07:30 | NUR ---
NURSE NOTES: Received pt from FIOR HERNANDEZ, Pt is awake and alert, pt is on RA, no SOB or acute respiratory distress noted. pt has intact iv access RFA 22G SL. Pt is on continues heart monitoring. no complain of pain at this moment. pt is eating breakfast by observation. all needs attended, bed is locked and is in the lowest position, call light within easy reach. will continue to monitor. Addendum: 03/31/19 at 0823 by Sai Renteria RN ERROR Received pt from LUL HERNANDEZ.
--- NOTE | 2019-03-31 07:30 | NUR ---
HAND-OFF: Report given to DAVID PARTIDA.
[2019-03-31 07:41] LABS: INR 1.8 (0.9-1.1)
[2019-03-31 07:42] LABS: BASOPHILS % (AUTO) 1.9 % (0.0-2.0); EOSINOPHILS % (AUTO) 4.8 % (0.0-3.0); HEMATOCRIT 35.2 % (42.0-52.0); HEMOGLOBIN 11.6 G/DL (14.2-18.0); LYMPHOCYTES % (AUTO) 30.5 % (20.0-45.0); MEAN CORPUSCULAR VOLUME 90 FL (80-99); MONOCYTES % (AUTO) 7.7 % (1.0-10.0); NEUTROPHILS % (AUTO) 55.2 % (45.0-75.0); PLATELET COUNT 228 K/UL (150-450); RED BLOOD COUNT 3.89 M/UL (4.70-6.10); RED CELL DISTRIBUTION WIDTH 15.8 % (11.6-14.8); WHITE BLOOD COUNT 4.8 K/UL (4.8-10.8)
[2019-03-31 08:00] VITALS: BP 132/92
[2019-03-31 08:06] LABS: ALANINE AMINOTRANSFERASE 47 U/L (12-78); ALBUMIN 2.9 G/DL (3.4-5.0); ALBUMIN/GLOBULIN RATIO 0.7 (1.0-2.7); ALKALINE PHOSPHATASE 99 U/L (46-116); ANION GAP 11 mmol/L (5-15); ASPARTATE AMINO TRANSFERASE 17 U/L (15-37); BILIRUBIN,TOTAL 0.6 MG/DL (0.2-1.0); BLOOD UREA NITROGEN 26 mg/dL (7-18); CALCIUM 8.8 MG/DL (8.5-10.1); CARBON DIOXIDE 24 MMOL/L (21-32); CHLORIDE 105 MMOL/L (98-107); CREATININE 1.3 MG/DL (0.55-1.30); POTASSIUM 4.3 MMOL/L (3.5-5.1); SODIUM 140 MMOL/L (136-145)
--- NOTE | 2019-03-31 09:13 | NUR ---
RD ASSESSMENT & RECOMMENDATIONS SEE CARE ACTIVITY FOR COMPLETE ASSESSMENT DAILY ESTIMATED NEEDS: Needs based on Cardiac, 88kg abw 25-30 kcals/kg 4318-0267 total kcals 1-1.2 g protein/kg 88-106 g total protein 20-25 mL/kg 5086-5986 total fluid mLs NUTRITION DIAGNOSIS: Altered nutrition related lab values R/T CHF, liver dysfunction as evidenced by elev BNP (7357->5923), elev LFTs, T bili (1.3). CURRENT DIET:CARDIAC PO DIET RECOMMENDATIONS: Maintain Cardiac diet ADDITIONAL RECOMMENDATIONS: * Daily standing wt monitoring for accuracy CHF dx, on a bed without bedscale * Monitor for continued good PO intake * Coumadin diet edu provided *
[2019-03-31] MEDS: Docusate 100mg cap ORAL SCH ×2 (09:18→12:04)
[2019-03-31] MEDS: Furosemide 40mg tab ORAL SCH (09:18)
[2019-03-31] MEDS: Carvedilol 25mg Tab ORAL SCH (09:18)
[2019-03-31] MEDS: Spironolactone 25mg tab ORAL SCH (09:18)
[2019-03-31] MEDS: Lisinopril 20mg tab ORAL SCH (09:18)
[2019-03-31] MEDS: Enoxaparin 100mg Inj SUBQ SCH (09:20)
--- NOTE | 2019-03-31 10:01 | General Progress Note ---
Assessment/Plan Problem List: (1) Anemia ICD Codes: D64.9 - Anemia, unspecified SNOMED: 488806470 (2) Diverticulosis ICD Codes: K57.90 - Diverticulosis of intestine, part unspecified, without perforation or abscess without bleeding SNOMED: 273796759 (3) CHF (congestive heart failure) ICD Codes: I50.9 - Heart failure, unspecified SNOMED: 10892636 Qualifiers: Qualified Codes: I50.9 - Heart failure, unspecified (4) Pulmonary hypertension ICD Codes: I27.20 - Pulmonary hypertension, unspecified SNOMED: 82459197 (5) Constipation ICD Codes: K59.00 - Constipation, unspecified SNOMED: 53206982 (6) Abdominal pain ICD Codes: R10.9 - Unspecified abdominal pain SNOMED: 78665632 (7) Left ventricular ejection fraction of 21% to 30% ICD Codes: R93.1 - Abnormal findings on diagnostic imaging of heart and coronary circulation SNOMED: 11060372, 516992972 Status: stable, progressing, unchanged Assessment/Plan: + bm anemia work up zofran prn ppi needs EGD and colonoscopy but on hold given stable H&H and now patient is on coumadin can be done as out patient will fu Subjective ROS Limited/Unobtainable: Yes Allergies: Coded Allergies: IODINE (Verified Allergy, Unknown, 01/24/19) Uncoded Allergies: Shell fish (Allergy, Severe, 01/25/19) Objective Last 24 Hour Vital Signs Date Time Temp Pulse Resp B/P (MAP) Pulse Ox O2 Delivery O2 Flow Rate FiO2 03/31/19 09:18 132/92 03/31/19 09:18 87 132/92 03/31/19 08:00 98.1 87 20 132/92 (105) 97 03/31/19 04:00 90 03/31/19 04:00 97.0 91 20 116/84 (95) 91 03/31/19 02:54 98.4 03/31/19 00:00 98.4 88 20 106/63 (77) 95 03/31/19 00:00 97 03/30/19 21:55 90 134/99 03/30/19 21:00 Room Air 03/30/19 20:00 96.4 88 20 138/95 (109) 98 03/30/19 20:00 91 03/30/19 17:13 129/103 03/30/19 16:00 97.0 106 20 129/103 (112) 100 03/30/19 16:00 89 03/30/19 12:00 97.5 81 20 126/93 (104) 98 03/30/19 12:00 88 Intake and Output 03/30/19 03/31/19 19:00 07:00 Intake Total 450 ml 480 ml Output Total 800 ml 1400 ml Balance -350 ml -920 ml Intake Oral 450 ml 480 ml Output Urine Total 800 ml 1400 ml Laboratory Tests 03/31/19 05:27: White Blood Count 4.8, Red Blood Count 3.89L, Hemoglobin 11.6L, Hematocrit 35.2L , Mean Corpuscular Volume 90, Mean Corpuscular Hemoglobin 29.8, Mean Corpuscular Hemoglobin Concent 33.0, Red Cell Distribution Width 15.8H, Platelet Count 228, Mean Platelet Volume 5.9L, Neutrophils (%) (Auto) 55.2, Lymphocytes (%) (Auto) 30.5, Monocytes (%) (Auto) 7.7, Eosinophils (%) (Auto) 4.8H, Basophils (%) (Auto) 1.9, Prothrombin Time 18.4H, Prothromb Time International Ratio 1.8H, Sodium Level 140, Potassium Level 4.3, Chloride Level 105, Carbon Dioxide Level 24, Anion Gap 11, Blood Urea Nitrogen 26H, Creatinine 1.3, Estimat Glomerular Filtration Rate > 60, Glucose Level 107H, Calcium Level 8.8, Total Bilirubin 0.6, Aspartate Amino Transf (AST/SGOT) 17, Alanine Aminotransferase (ALT/SGPT) 47, Alkaline Phosphatase 99, Pro-B-Type Natriuretic Peptide 5923H, Total Protein 6.8, Albumin 2.9L, Globulin 3.9, Albumin/Globulin Ratio 0.7L, Hepatitis A IgM Antibody [Pending], Hepatitis B Surface Antigen [ Pending], Hepatitis B Core IgM Antibody [Pending], Hepatitis C Antibody [Pending ] Height (Feet): 6 Height (Inches): 1.00 Weight (Pounds): 219 General Appearance: alert EENT: PERRL/EOMI Neck: normal alignment, supple Cardiovascular: normal rate Respiratory/Chest: decreased breath sounds Abdomen: normal bowel sounds, non tender, soft Extremities: non-tender Vosoghi,Houston MD Mar 31, 2019 10:01
[2019-03-31] MEDS ORDERED: PRINIVIL20 MG ORAL (11:49)
[2019-03-31] MEDS ORDERED: PANTOPRAZOLE SO40 MG ORAL (11:49)
[2019-03-31] MEDS ORDERED: FUROSEMIDE40 MG ORAL (11:49)
[2019-03-31] MEDS ORDERED: SPIRONOLACTONE25 MG ORAL (11:49)
[2019-03-31] MEDS ORDERED: COREG25 MG ORAL (11:49)
[2019-03-31] MEDS ORDERED: COUMADIN10 MG ORAL (11:50)
--- NOTE | 2019-03-31 11:52 | Pulmonology Progress Note ---
Assessment/Plan Problems: (1) Acute on chronic systolic congestive heart failure (2) Left ventricular thrombus (3) Left ventricular ejection fraction of 21% to 30% (4) Pulmonary hypertension Assessment/Plan cxr is clear on Lasix 40 and Aldactone on Coumadin and Lovenox, INR is 1.8 titrate cardiac meds. prescription printed Subjective Interval Events: wants to go home, INR still not therapeutic Allergies: Coded Allergies: IODINE (Verified Allergy, Unknown, 01/24/19) Uncoded Allergies: Shell fish (Allergy, Severe, 01/25/19) Objective Last 24 Hour Vital Signs Date Time Temp Pulse Resp B/P (MAP) Pulse Ox O2 Delivery O2 Flow Rate FiO2 03/31/19 09:18 132/92 03/31/19 09:18 87 132/92 03/31/19 09:00 Room Air 03/31/19 08:00 98.1 87 20 132/92 (105) 97 03/31/19 07:48 99 03/31/19 04:00 90 03/31/19 04:00 97.0 91 20 116/84 (95) 91 03/31/19 02:54 98.4 03/31/19 00:00 98.4 88 20 106/63 (77) 95 03/31/19 00:00 97 03/30/19 21:55 90 134/99 03/30/19 21:00 Room Air 03/30/19 20:00 96.4 88 20 138/95 (109) 98 03/30/19 20:00 91 03/30/19 17:13 129/103 03/30/19 16:00 97.0 106 20 129/103 (112) 100 03/30/19 16:00 89 03/30/19 12:00 97.5 81 20 126/93 (104) 98 03/30/19 12:00 88 Intake and Output 03/30/19 03/31/19 19:00 07:00 Intake Total 450 ml 480 ml Output Total 800 ml 1400 ml Balance -350 ml -920 ml Intake Oral 450 ml 480 ml Output Urine Total 800 ml 1400 ml General Appearance: WD/WN HEENT: normocephalic, atraumatic Respiratory/Chest: chest wall non-tender, respiratory distress Cardiovascular: normal peripheral pulses, normal rate Abdomen: normal bowel sounds, soft, non tender Skin: no rash Neurologic/Psychiatric: food safety manager II-XII grossly normal Laboratory Tests 03/31/19 05:27: White Blood Count 4.8, Red Blood Count 3.89L, Hemoglobin 11.6L, Hematocrit 35.2L , Mean Corpuscular Volume 90, Mean Corpuscular Hemoglobin 29.8, Mean Corpuscular Hemoglobin Concent 33.0, Red Cell Distribution Width 15.8H, Platelet Count 228, Mean Platelet Volume 5.9L, Neutrophils (%) (Auto) 55.2, Lymphocytes (%) (Auto) 30.5, Monocytes (%) (Auto) 7.7, Eosinophils (%) (Auto) 4.8H, Basophils (%) (Auto) 1.9, Prothrombin Time 18.4H, Prothromb Time International Ratio 1.8H, Sodium Level 140, Potassium Level 4.3, Chloride Level 105, Carbon Dioxide Level 24, Anion Gap 11, Blood Urea Nitrogen 26H, Creatinine 1.3, Estimat Glomerular Filtration Rate > 60, Glucose Level 107H, Calcium Level 8.8, Total Bilirubin 0.6, Aspartate Amino Transf (AST/SGOT) 17, Alanine Aminotransferase (ALT/SGPT) 47, Alkaline Phosphatase 99, Pro-B-Type Natriuretic Peptide 5923H, Total Protein 6.8, Albumin 2.9L, Globulin 3.9, Albumin/Globulin Ratio 0.7L, Hepatitis A IgM Antibody [Pending], Hepatitis B Surface Antigen [ Pending], Hepatitis B Core IgM Antibody [Pending], Hepatitis C Antibody [Pending ] Current Medications Medications (Trade) Dose Ordered Sig/Rebeca Route PRN Reason Start Time Stop Time Status Last Admin Dose Admin Carvedilol (Coreg) 25 mg EVERY 12 HOURS ORAL 03/25/19 09:00 04/24/19 08:59 03/31/19 09:18 Docusate Sodium (Colace) 100 mg THREE TIMES A DAY ORAL 03/27/19 13:00 04/26/19 12:59 03/31/19 09:18 Enoxaparin Sodium (Lovenox) 100 mg EVERY 12 HOURS SUBQ 03/26/19 21:00 04/25/19 20:59 03/31/19 09:20 Furosemide (Lasix) 40 mg DAILY ORAL 03/30/19 09:00 04/29/19 08:59 03/31/19 09:18 Lisinopril (PriniviL) 20 mg BID ORAL 03/26/19 09:00 04/25/19 08:59 03/31/19 09:18 Morphine Sulfate (Morphine Sulfate) 1 mg Q4H PRN IVP For Pain 03/28/19 16:30 04/04/19 16:29 03/31/19 11:50 Ondansetron HCl (Zofran) 4 mg Q8H PRN IVP Nausea & Vomiting 03/25/19 16:15 04/24/19 16:14 03/31/19 09:20 Pantoprazole (Protonix) 40 mg DAILY ORAL 03/26/19 09:00 04/25/19 08:59 03/31/19 09:18 Polyethylene Glycol (Miralax) 17 gm BEDTIME ORAL 03/27/19 21:00 04/26/19 20:59 03/27/19 21:14 Spironolactone (Aldactone) 12.5 mg DAILY ORAL 03/30/19 09:00 04/29/19 08:59 03/31/19 09:18 Warfarin Sodium (Coumadin per pharmacy) 1 ea DAILY PRN MISC Per rx protocol 03/25/19 20:45 04/24/19 20:44 Warfarin Sodium (Coumadin) 12 mg COUMADIN ONCE PO 03/31/19 17:00 03/31/19 17:01 Tito Echeverria MD Mar 31, 2019 11:52
[2019-03-31 12:00] VITALS: BP 129/76
--- NOTE | 2019-03-31 13:19 | Cardiology Progress Note ---
Assessment/Plan Assessment/Plan 1. Acute systolic congestive heart failure. 2. Cardiomyopathy. 3. Mitral regurgitation, tricuspid regurgitation. 4. Possible left ventricular thrombus, on anticoagulation. keep on diuretic iv until ready to go home on acei on creog lovenox Coumadin Cross over better already at home will need lasix 60 mg bid lisinopril 20 mg bid aldactone 12.5 mg daily Coumadin and lovenox understand to weigh himself to day then daily ant useextara dose of lasix if gains 2 lb over to day dose fu with the [facility] is getting referral for [facility] service through the [facility] per pt himself Subjective Cardiovascular: Denies: chest pain, irregular heart rate, lightheadedness, palpitations, syncope Respiratory: Reports: SOB with excertion; Denies: shortness of breath Gastrointestinal/Abdominal: Denies: abdominal pain Genitourinary: Denies: burning Objective Last 24 Hour Vital Signs Date Time Temp Pulse Resp B/P (MAP) Pulse Ox O2 Delivery O2 Flow Rate FiO2 03/31/19 12:20 98.1 03/31/19 09:18 132/92 03/31/19 09:18 87 132/92 03/31/19 09:00 Room Air 03/31/19 08:00 98.1 87 20 132/92 (105) 97 03/31/19 07:48 99 03/31/19 04:00 90 03/31/19 04:00 97.0 91 20 116/84 (95) 91 03/31/19 00:00 98.4 88 20 106/63 (77) 95 03/31/19 00:00 97 03/30/19 21:55 90 134/99 03/30/19 21:00 Room Air 03/30/19 20:00 96.4 88 20 138/95 (109) 98 03/30/19 20:00 91 03/30/19 17:13 129/103 03/30/19 16:00 97.0 106 20 129/103 (112) 100 03/30/19 16:00 89 General Appearance: no apparent distress, alert Neck: supple Cardiovascular: normal rate Respiratory/Chest: crackles/rales - few Abdomen: normal bowel sounds, non tender, soft Extremities: trace edema Intake and Output 03/30/19 03/31/19 19:00 07:00 Intake Total 450 ml 480 ml Output Total 800 ml 1400 ml Balance -350 ml -920 ml Intake Oral 450 ml 480 ml Output Urine Total 800 ml 1400 ml Laboratory Tests Test 03/31/19 05:27 White Blood Count 4.8 K/UL (4.8-10.8) Red Blood Count 3.89 M/UL (4.70-6.10) L Hemoglobin 11.6 G/DL (14.2-18.0) L Hematocrit 35.2 % (42.0-52.0) L Mean Corpuscular Volume 90 FL (80-99) Mean Corpuscular Hemoglobin 29.8 PG (27.0-31.0) Mean Corpuscular Hemoglobin Concent 33.0 G/DL (32.0-36.0) Red Cell Distribution Width 15.8 % (11.6-14.8) H Platelet Count 228 K/UL (150-450) Mean Platelet Volume 5.9 FL (6.5-10.1) L Neutrophils (%) (Auto) 55.2 % (45.0-75.0) Lymphocytes (%) (Auto) 30.5 % (20.0-45.0) Monocytes (%) (Auto) 7.7 % (1.0-10.0) Eosinophils (%) (Auto) 4.8 % (0.0-3.0) H Basophils (%) (Auto) 1.9 % (0.0-2.0) Prothrombin Time 18.4 SEC (9.30-11.50) H Prothromb Time International Ratio 1.8 (0.9-1.1) H Sodium Level 140 MMOL/L (136-145) Potassium Level 4.3 MMOL/L (3.5-5.1) Chloride Level 105 MMOL/L (98-107) Carbon Dioxide Level 24 MMOL/L (21-32) Anion Gap 11 mmol/L (5-15) Blood Urea Nitrogen 26 mg/dL (7-18) H Creatinine 1.3 MG/DL (0.55-1.30) Estimat Glomerular Filtration Rate > 60 mL/min (>60) Glucose Level 107 MG/DL (74-106) H Calcium Level 8.8 MG/DL (8.5-10.1) Total Bilirubin 0.6 MG/DL (0.2-1.0) Aspartate Amino Transf (AST/SGOT) 17 U/L (15-37) Alanine Aminotransferase (ALT/SGPT) 47 U/L (12-78) Alkaline Phosphatase 99 U/L (46-116) Pro-B-Type Natriuretic Peptide 5923 pg/mL (0-125) H Total Protein 6.8 G/DL (6.4-8.2) Albumin 2.9 G/DL (3.4-5.0) L Globulin 3.9 g/dL Albumin/Globulin Ratio 0.7 (1.0-2.7) L Hepatitis A IgM Antibody Pending Hepatitis B Surface Antigen Pending Hepatitis B Core IgM Antibody Pending Hepatitis C Antibody Pending Cisco Yoder MD Mar 31, 2019 13:19
--- NOTE | 2019-03-31 13:49 | General Progress Note ---
Assessment/Plan Problem List: (1) HTN (hypertension) ICD Codes: I10 - Essential (primary) hypertension SNOMED: 88959383 (2) SOB (shortness of breath) ICD Codes: R06.02 - Shortness of breath SNOMED: 040485869 (3) Acute on chronic systolic congestive heart failure ICD Codes: I50.23 - Acute on chronic systolic (congestive) heart failure SNOMED: 463257017, 448697673 (4) Anemia ICD Codes: D64.9 - Anemia, unspecified SNOMED: 585951406 Status: stable, progressing, unchanged Assessment/Plan: o2 plm tx cbb bmp am dc plan if clear Subjective Constitutional: Reports: weakness Respiratory: Reports: shortness of breath Allergies: Coded Allergies: IODINE (Verified Allergy, Unknown, 01/24/19) Uncoded Allergies: Shell fish (Allergy, Severe, 01/25/19) All Systems: reviewed and negative except above Subjective sitting on bed Objective Last 24 Hour Vital Signs Date Time Temp Pulse Resp B/P (MAP) Pulse Ox O2 Delivery O2 Flow Rate FiO2 03/31/19 12:20 98.1 03/31/19 09:18 132/92 03/31/19 09:18 87 132/92 03/31/19 09:00 Room Air 03/31/19 08:00 98.1 87 20 132/92 (105) 97 03/31/19 07:48 99 03/31/19 04:00 90 03/31/19 04:00 97.0 91 20 116/84 (95) 91 03/31/19 00:00 98.4 88 20 106/63 (77) 95 03/31/19 00:00 97 03/30/19 21:55 90 134/99 03/30/19 21:00 Room Air 03/30/19 20:00 96.4 88 20 138/95 (109) 98 03/30/19 20:00 91 03/30/19 17:13 129/103 03/30/19 16:00 97.0 106 20 129/103 (112) 100 03/30/19 16:00 89 Intake and Output 03/30/19 03/31/19 19:00 07:00 Intake Total 450 ml 480 ml Output Total 800 ml 1400 ml Balance -350 ml -920 ml Intake Oral 450 ml 480 ml Output Urine Total 800 ml 1400 ml Laboratory Tests 03/31/19 05:27: White Blood Count 4.8, Red Blood Count 3.89L, Hemoglobin 11.6L, Hematocrit 35.2L , Mean Corpuscular Volume 90, Mean Corpuscular Hemoglobin 29.8, Mean Corpuscular Hemoglobin Concent 33.0, Red Cell Distribution Width 15.8H, Platelet Count 228, Mean Platelet Volume 5.9L, Neutrophils (%) (Auto) 55.2, Lymphocytes (%) (Auto) 30.5, Monocytes (%) (Auto) 7.7, Eosinophils (%) (Auto) 4.8H, Basophils (%) (Auto) 1.9, Prothrombin Time 18.4H, Prothromb Time International Ratio 1.8H, Sodium Level 140, Potassium Level 4.3, Chloride Level 105, Carbon Dioxide Level 24, Anion Gap 11, Blood Urea Nitrogen 26H, Creatinine 1.3, Estimat Glomerular Filtration Rate > 60, Glucose Level 107H, Calcium Level 8.8, Total Bilirubin 0.6, Aspartate Amino Transf (AST/SGOT) 17, Alanine Aminotransferase (ALT/SGPT) 47, Alkaline Phosphatase 99, Pro-B-Type Natriuretic Peptide 5923H, Total Protein 6.8, Albumin 2.9L, Globulin 3.9, Albumin/Globulin Ratio 0.7L, Hepatitis A IgM Antibody [Pending], Hepatitis B Surface Antigen [ Pending], Hepatitis B Core IgM Antibody [Pending], Hepatitis C Antibody [Pending ] Height (Feet): 6 Height (Inches): 1.00 Weight (Pounds): 219 General Appearance: lethargic EENT: normal ENT inspection Neck: non-tender Cardiovascular: normal peripheral pulses, normal rate, regular rhythm Respiratory/Chest: chest wall non-tender, lungs clear, normal breath sounds Abdomen: normal bowel sounds, non tender, soft Extremities: normal inspection Edema: no edema noted Arm (L), no edema noted Arm (R), no edema noted Leg (L), no edema noted Leg (R), no edema noted Pedal (L), no edema noted Pedal (R), no edema noted Generalized Neurologic: responsive, motor weakness Skin: normal pigmentation, warm/dry Law Pérez DO Mar 31, 2019 13:49
--- NOTE | 2019-03-31 14:43 | NUR ---
NURSE NOTES: pt insist to go home, Dr YIP notified and ordered to discharge home if clear by Dr KEYES, Dr KHAN notified and visited pt but he ordered pt isn't clear to D/C but pt insist to D/C and Dr KEYES and Dr EARL given prescription to pt if he wants to sign AMA, RN explained to pt about risks of AMA but pt still asked to go home, pt signed AMA, pt made himself off monitor, all belongings and Dr KEYES and Dr EARL prescriptions are with pt and pt signed belongings list, SW spoke with pt, iv access D/C, pt left hospital by himself.
--- NOTE | 2019-03-31 14:45 | NUR ---
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 SW met w/ pt to assess his needs. Per pt, he resides alone at [facility] [place], [place] and pt states he has an emergency situation that he needs AMA. SW encouraged pt to reconsider his decision on AMA but pt refused. Pt was asking if he can be provided transportation. YOMAIRA and Jayde HERNANDEZ explained the hospital policy. Pt verbalized understanding. Signed: 03/31/19 at 1451 by HANANE BURNETTE <Co-Signature Required>
[2019-03-31] MEDS ORDERED: Warfarin Sodium 4mg PO ONE (17:00)
--- NOTE | 2019-04-01 18:24 | Discharge Summary ---
Discharge Summary Discharge Summary _ DATE OF ADMISSION: 03/24/2019 DATE OF DISCHARGE: 03/31/2019 Patient signed AGAINST MEDICAL ADVICE REASON FOR ADMISSION: 63 years old male with past medical history of end-stage heart disease , ejection fraction of less than 20% with probable left ventricular thrombus, recently diagnosed in [facility], presented to emergency department with chief complaint of shortness of breath. Patient reported increased swelling in bilateral lower extremity, despite taking his Lasix. Upon evaluation in emergency room patient was tachycardic, tachypneic Laboratory work-up was significant for potassium 5.2, troponin 0.07, pro BNP 7357. EKG revealed sinus tachycardia, no acute ischemic changes. Chest x-ray demonstrated cardiomegaly and congestive changes. In emergency department patient received Lasix and admitted for further management. CONSULTANTS: loss control representative Dr. Yoder pulmonary /critical care Dr. Echeverria GI specialist Dr. Thayer [facility]: Patient admitted to monitored floor. Prior ECHO revealed in January 2019 revealed ejection fraction less than 15% , no evidence of left ventricular hypertrophy. Severe global left ventricular hypokinesis. Mitral inflow i with increased left atrial pressure suggesting restrictive pattern grade 3. Severe mitral and tricuspid regurgitation. Right ventricular systolic pressure of 72 consistent with severe pulmonary hypertension. Patient started on IV diuretic with close monitoring of volumes and cardiorenal parameters. Guideline directed medical therapy for congestive heart failure with beta- parvez, MEHRAN inhibitor, and diuretics/Lasix and Aldactone provided. Patient was on anticoagulation for probable left ventricular thrombus with Lovenox and Coumadin to reach therapeutic INR. Senior Strategy Manager recommended at home to use Lasix 60 mg twice a day. ProBNP was trending down. Supplemental oxygen was on board as needed to keep pulse oximetry above 92%. Nebulizing treatment with bronchodilator provided as needed. Pulse oximetry was stable on room air. Patient with initial constipation and abdominal pain. Bowel regimen instituted. Antiemetic provided as needed. GI prophylaxis provided. CT of the abdomen /pelvis showed slow transit of contrast through the small bowel, nonspecific, but probably reflecting slow motility. No acute abdominal or pelvic process otherwise. Moderate retained colonic stool. Colonic diverticulosis without evidence of diverticulitis. Basilar pulmonary consolidation, atelectasis and /or scaring; right greater than left. Abdominal ultrasound revealed no evidence of gallstones or dilated ducts. Borderline hepatomegaly. Hemoglobin and hematocrit were closely monitored with goal to keep hemoglobin above 7. Hemoglobin and hematocrit remained at baseline, prior to signing AMA hemoglobin 11.6, hematocrit 35.2. Hepatitis panel was negative. Per GI specialist , patient was in need for EGD and colonoscopy, which was on hold given stable hemoglobin and hematocrit and the fact that patient was on anticoagulation. EGD and colonoscopy can be done as outpatient. Patient was clinically improving , however was not cleared for discharge by loss control representative and supply chain tech/environmental management specialist. Patient insisted on leaving AGAINST MEDICAL ADVICE , since he had an emergent situation at home. Prescription provided by loss control representative and supply chain tech. The risks and consequences of signing AGAINST MEDICAL ADVICE were discussed with patient in detail. Patient verbalized understanding, nevertheless signed AMA form and left. FINAL DIAGNOSES: Acute on chronic systolic congestive heart failure Severe cardiomyopathy Severe mitral and tricuspid regurgitation Possible left ventricular thrombus, on anticoagulation Severe pulmonary hypertension Constipation Anemia Diverticulosis I have been assigned to dictate discharge summary for this account. I was not involved in the patient's management. Adalgisa Jon NP Apr 01, 2019 18:24
== END 2019-03-31 15:00 | disposition left against medical advice (07) | DRG 194 ==
LOC: EDBD 20:03 → EMR 20:20 → 2W 21:03 → EDBEDREQ 23:31 → 2W 03-25 02:33 → 2E 03-26 16:14
DX: I11.0 Hypertensive heart disease with heart failure (principal); I50.23 Acute on chronic systolic (congestive) heart failure; I27.20 Pulmonary hypertension, unspecified; I24.0 Acute coronary thrombosis not resulting in myocardial infarction; Z88.8 Allergy status to other drugs, medicaments and biological substances; D64.9 Anemia, unspecified; I42.9 Cardiomyopathy, unspecified; K59.00 Constipation, unspecified; K57.90 Diverticulosis of intestine, part unspecified, without perforation or abscess without bleeding; I34.0 Nonrheumatic mitral (valve) insufficiency; I36.1 Nonrheumatic tricuspid (valve) insufficiency
CPT/HCPCS: 36415; 71045; 74176; 76700; 80048; 80053; 82248; 83880; 84484; 85025; 85610; 85730; 86705; 86709; 86803; 87081; 87340; 93005; 96374; 96375; 97803; 99285; J2405